=== PATIENT | male | born 1970 | race Caucasian/White ===

== ENCOUNTER → 2020-04-26 13:54 | Outpatient (BNVA) | payer OTHER, SELFPAY | PROVIDERS: PCP Family Medicine; Visit Provider Surgery | DX: Z48.815 Encounter for surgical aftercare following surgery on the digestive system (principal); Z93.3 Colostomy status | CPT/HCPCS: 99212 ==

== ENCOUNTER 2020-07-05 07:44 | Outpatient (REF) | payer OTHER, SELFPAY ==
--- NOTE | 2020-07-05 07:47 | FL_ITS ---
EXAMINATION: XR BARIUM ENEMA CLINICAL INFORMATION: Colostomy status COMPARISON: Previous CT of the abdomen and pelvis most recent October 2019 TECHNIQUE: Limited single contrast barium enema was performed through the rectum FINDINGS: There is a small outpouching of contrast in the distal left colon or proximal sigmoid colon. This appears to have a haustral folds and may represent the surgical anastomosis/possible end-to-side anastomosis. This is in the area of previous abscess and small contained leak cannot be excluded with certainty. There is diverticulosis of the colon. No evidence of diverticulitis is seen. There is evidence of a loop colostomy of the proximal transverse colon. The cecum and right colon are not optimally visualized as contrast preferentially fills the colostomy bag. FLUOROSCOPY TIME: 0.9 minutes DOSE AREA PRODUCT: 76 poon per centimeter squared. Total dose 1 6 4 mg. 24 images. FL/FL barium enema IMPRESSION: Outpouching of the contrast the right distal left colon/proximal sigmoid colon which appears to have haustral folds and may represent a surgical end to side anastomosis. This is in the area of previous abscess and small contained perforation cannot be excluded with certainty. Diverticulosis of the colon. Transverse loop colostomy of the proximal transverse colon.
--- NOTE | 2020-07-05 08:26 | XR_ITS ---
EXAMINATION: XR LUMBOSACRAL SPINE CLINICAL INFORMATION: Back pain. COMPARISON: CT abdomen/pelvis dated 11/04/2019. TECHNIQUE: Three views of the lumbosacral spine. FINDINGS: Normal vertebral body alignment. The lumbar lordosis is maintained. No acute fracture or subluxation. No loss of vertebral body height. Mild loss of intervertebral disc L5-S1 as well as tiny endplate osteophytes at L3-L4 through L5-S1. Bilateral facet arthropathy at L4-L5 and L5-S1. Findings are similar when compared to the prior examination. No abnormal soft tissue calcification. XR/XR lumbar spine 2-3V IMPRESSION: Minimal degenerative disc disease at L3-S1 with mild bilateral facet arthropathy at L4-S1, similar when compared to the CT dated 11/04/2019.
== END 2020-07-05 07:45 | disposition home or self-care (01) ==
LOC: HO.XRAY 07:44
PROVIDERS: PCP Family Medicine; Visit Provider Surgery
DX: M54.9 Dorsalgia, unspecified (principal); Z93.3 Colostomy status
CPT/HCPCS: 72100; 74270

== ENCOUNTER 2020-07-27 08:00 | Outpatient (RCR) | payer OTHER, SELFPAY ==
--- NOTE | 2020-06-08 07:25 | MHC.PT.EP ---
[facility] [place] [facility] [place] [facility] [place] Office [address] [place] [address] [phone] F: [phone] F: [phone] F: [phone] F: [phone] Physical Therapy Plan of Care Date of Evaluation: 06/01/20 Date of Surgery: Diagnosis: Dorsalgia Assessment: Pt is a R hand dominant 49 y/o male referred from PCP Dr. Jeff for treatment of Dorsalgia with initial date of referral 05/10/2020. Pt was seen for evaluation today on 06/01/2020. Pt verbalizes history of chronic back pain with R LE sciatica which is near constant in nature. 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 He states he was working up until last April in same type of physical job when ultimately he had to stop due to hx sx severity. Pt has had two abdominal surgeries related to diverticulitis in 2019, resulting in new placement of R LE ostomy quadrant. Pt stated is he awaiting to have medical clearance to have this procedure reversed. He reported complication of bladder injury during second abdominal surgery resulting in aguirre placement which he stated bladder is now at baseline function. He has severe anxiety and history of panic attacks, (currently seeing provider from [facility] once a week on Wednesdays and had medication adjusted by PCP). Pt's prognosis for physical therapy is fair due to chronicity of sx, severity of pain identified at evaluation, level of anxiety, and limited positional tolerance. He stated he has been sleeping in a recliner for many months and has never been able to lie prone/supine even before ostomy. He was noted to exhibit decreased tolerance for sitting in a chair and was unable to stand for greater than 10 minutes. He verbalized presence of shooting pain radiating down central spine L4-L5 region with very limited movement. Pt stated he has not had any imaging but also verbalized hx of ongoing memory impairment. He reports currently has a case reviewer from [employer] assigned to him as he is facing eviction from his apartment and has not yet been cleared for disability benefits. He is receiving SNAP benefits and has transportation provided to him from his insurance. During assessment, pt was unable to lie prone due to his anxiety and level of pain. In sitting his R great toe was unable to extend and his strength in this area appeared diminished at 3+/5. He was unable to tolerate complete assessment in supine and stated he cannot lie on his back at all. His gait is very antalgic; he demonstrates uneven step length with increased guarding of UE and step to pattern with foot flat contact, reduction of swing phase and decreased knee flexion B. Due to pt reporting R>L LE giving out due to ambulation, pt may benefit from use of a RW to prevent falls at home. He has reported history of near fall when his R leg has given out on several occasions. He was trialed in the clinic with use of RW and he verbalized improvement in confidence with ambulation as well as reduction in the overall severity of his central LBP. He was educated to refrain from heavy grasping of the walker and educated how to use it when turning to maximize safety. Pt may benefit from receiving a written prescription for RW to aide in insurance coverage for this item. Pt was told that therapist will address this inquiry with his PCP/referring provider. If in agreement, please write a prescription for a RW and therapist can aide patient in obtaining for home use. Pt will be seen in therapy 1x/week due to severity of pt's anxiety, chronicity of sx, and external factors such as transportation. Frequency and Duration: The patient will be seen 1x week x 4 weeks Short Term Goals: 1. Pt will demonstrate neutral sitting posture with symmetrical weight-bearing. 2. Pt will demonstrate functional squat with neutral core stab. 3. Pt will demonstrate lumbar flexion improvement by 25%. 4. Pt will demonstrate good body mechanics during functional squat assessment. Water Supervisor Goals: 1. Pt will demonstrate carryover of joint protection measures in regards to mechanics and ADLs. 2. Pt will obtain a RW to aide in gait stability. 3 Pt will demonstrate sitting tolerance for 15 minutes without flare of lumbar sx >4/10. 4. Pt will initiate a gentle community walking program 10 minutes a day. Treatment Plan: Modalities to reduce pain, spasms and effusion. Manual therapy to restore motion and function. Therapeutic exercise to improve strength and flexibility. Neuromuscular re-education for posture and balance. Therapeutic activities to return to functional activities of daily living. Electronically signed by: Loly Denise PT,DPT Please sign and return to therapist. Thank you for your referral.
== END 2020-08-05 08:37 | disposition other institution (70) ==
LOC: HO.PTWFD 08:00
PROVIDERS: Visit Provider Family Medicine
DX: M54.9 Dorsalgia, unspecified (principal)
CPT/HCPCS: 97014; 97110; 97112; 97116; 97162; 97530; 97535

== ENCOUNTER → 2020-08-18 15:06 | Outpatient (BNVA) | payer OTHER, SELFPAY | PROVIDERS: PCP Family Medicine; Visit Provider Surgery | DX: Z93.3 Colostomy status (principal) | CPT/HCPCS: 99212 ==

== ENCOUNTER → 2020-08-23 10:03 | Outpatient (BNVA) | payer OTHER, SELFPAY | PROVIDERS: PCP Family Medicine; Visit Provider Anesthesiology | DX: M51.36 Other intervertebral disc degeneration, lumbar region (principal); M47.816 Spondylosis without myelopathy or radiculopathy, lumbar region; G89.4 Chronic pain syndrome | CPT/HCPCS: 99202 ==

== ENCOUNTER 2020-08-24 18:41 | Outpatient (REF) | payer OTHER, SELFPAY ==
--- NOTE | ~2020-08-24 | MR_ITS ---
EXAMINATION: MR LUMBAR SPINE WITHOUT CONTRAST CLINICAL INFORMATION: Spondylosis without myelopathy or radiculopathy. COMPARISON: CT of the abdomen and pelvis August 29, 2019. TECHNIQUE: MRI of the lumbar spine was obtained using routine sequences without contrast. FINDINGS: The lumbar vertebral bodies maintain normal heights and alignment. The disc heights are preserved. No marrow edema is seen. The distal spinal cord appears normal. The conus medullaris terminates at the L2 level. There is fibrofatty thickening of the filum terminale measuring up to 2.5 mm. Incidentally noted is a 2.3 x 1.8 cm exophytic mass arising from the medial aspect of the upper pole of the right kidney. This lesion has increased in size compared with August 28, 2020 when it measured 1.2 cm. The remainder of the visualized retroperitoneal structures are within normal limits. SPINAL LEVELS: L1-L2: No posterior disc abnormality. No spinal canal or neural foraminal stenosis. L2-L3: No posterior disc abnormality. No spinal canal or neural foraminal stenosis. L3-L4: Disc bulging with minimal encroachment on the neural foramina. No spinal canal stenosis. L4-L5: Disc bulging with moderate facet arthropathy resulting in mild to moderate spinal canal stenosis with mass effect on the traversing left L5 nerve root in the subarticular zone. Mild right and mild to moderate left neural foraminal stenosis. L5-S1: Disc bulging with moderate facet arthropathy. No spinal canal or neural foraminal stenosis. MR/MR lumbar spine wo con IMPRESSION: Soft tissue mass arising from the medial aspect of the upper pole of the right kidney measuring up to 2.3 x 1.8 cm. Renal cell carcinoma is suspected. Consider definitive characterization with renal protocol MRI. Mild degenerative spondylotic changes. At L4-L5 there is mild to moderate spinal canal stenosis with mass effect on the traversing left L5 nerve root in the subarticular zone. No definite foraminal nerve root compression identified.
== END 2020-08-24 18:42 | disposition home or self-care (01) ==
LOC: HO.MRI 18:41
PROVIDERS: Visit Provider Anesthesiology
DX: M47.816 Spondylosis without myelopathy or radiculopathy, lumbar region (principal); M51.36 Other intervertebral disc degeneration, lumbar region
CPT/HCPCS: 72148

== ENCOUNTER → 2020-08-31 12:52 | Outpatient (BNVA) | payer OTHER, SELFPAY | PROVIDERS: PCP Family Medicine; Visit Provider Urology | DX: Z13.89 Encounter for screening for other disorder (principal) | CPT/HCPCS: 99202 ==

== ENCOUNTER → 2020-10-15 08:10 | Outpatient (BNVA) | payer OTHER, SELFPAY | PROVIDERS: PCP Family Medicine; Visit Provider Urology | DX: N28.89 Other specified disorders of kidney and ureter (principal) | CPT/HCPCS: 99212 ==

== ENCOUNTER 2020-10-29 08:12 | Outpatient (REF) | payer OTHER, SELFPAY ==
[2020-10-29 10:12] LABS: MANUAL DIFF FLAG NO
[2020-10-29 10:18] LABS: Basophils Absolute Auto 0.1 X10*3/uL (0.0-0.2); Basophils Percent Auto 0.6 % (0-2); Eosinophils Absolute Auto 0.3 X10*3/uL (0.0-0.4); Eosinophils Percent Auto 3.9 % (0-4); Hematocrit 51.2 % (42-52); Hemoglobin 17.2 g/dl (14.0-18.0); Imm Gran Abs Auto 0.06 X10*3/uL (0.00-0.03); Imm Gran Pct Auto 0.8 % (0.0-0.4); Lymphocytes Absolute Auto 1.8 X10*3/uL (1.2-4.9); Lymphocytes Percent Auto 22.7 % (20-40); Mean Corpuscular HGB Conc 33.6 g/dl (31.0-36.0); Mean Corpuscular Hemoglobin 31.7 pg (27.0-33.0); Mean Corpuscular Volume 94.3 fL (80-98); Mean Platelet Volume 9.7 fL (9.4-12.4); Monocytes Absolute Auto 0.5 X10*3/uL (0.1-1.2); Monocytes Percent Auto 6.5 % (2-11); Neutrophils Absolute Auto 5.2 X10*3/uL (2.0-8.3); Neutrophils Percent Auto 65.5 % (45-73); Platelet Count 235 X10*3/uL (160-400); Red Blood Count 5.43 X10*6/uL (4.60-5.80); Red Cell Distribution Width 13.7 % (11.0-16.0)
[2020-10-29 10:40] LABS: Alanine Aminotransferase 37 U/L (0-40); Alkaline Phosphatase 83 U/L (39-117); Anion Gap 11 (12-20); Aspartate Amino Transferase 19 U/L (5-37); Bilirubin Total 0.4 mg/dL (0.0-1.0); Blood Urea Nitrogen 13 mg/dL (9-16); Calcium 9.3 mg/dL (8.4-10.2); Carbon Dioxide 28 mmol/L (22-29); Chloride 106 mmol/L (96-108); Estimated Glomerular Filt Rate > 60; Glucose Random 107 mg/dL (60-115); Potassium 4.9 mmol/L (3.3-5.1); Rheumatoid Factor < 15.0 IU/mL (<15.0); Sodium 140 mmol/L (135-145); Total Protein 6.6 g/dL (6.5-8.0)
[2020-10-29 11:07] LABS: Erythrocyte Sedimentation Rate 3 MM/HR (0-15)
[2020-10-30 13:36] LABS: CRP High Sensitivity 5.3 mg/L
[2020-10-31 17:46] LABS: Cyclic Citrullinated Peptide <16 UNITS
== END 2020-10-29 08:13 | disposition home or self-care (01) ==
LOC: HO.LAB 08:12
PROVIDERS: Absent Provider Family Medicine; PCP Family Medicine; Referring Provider Urology; Visit Provider Nurse Practitioner Family
DX: M51.36 Other intervertebral disc degeneration, lumbar region (principal); M47.816 Spondylosis without myelopathy or radiculopathy, lumbar region; M54.12 Radiculopathy, cervical region; G89.4 Chronic pain syndrome; Z79.899 Other long term (current) drug therapy
CPT/HCPCS: 36415; 80053; 85025; 85652; 86141; 86200; 86431; 99212

== ENCOUNTER 2020-11-05 18:29 | Outpatient (REF) | payer OTHER, SELFPAY ==
--- NOTE | ~2020-11-05 | MR_ITS ---
MR CERVICAL SPINE WITHOUT IV CONTRAST CLINICAL INFORMATION: Cervical region radiculopathy. COMPARISON: None available. TECHNIQUE: MRI of the cervical spine was obtained using routine sequences without contrast. FINDINGS: Cervical alignment is normal. The vertebral body heights are maintained. The disc volumes are preserved. There is no bone marrow edema. There are no acute fractures. Craniocervical junction is unremarkable. Cervical arterial flow voids are maintained. No significant extraspinal soft tissue findings. Accounting for artifact there is no cord signal abnormality. Franko-cisterna magna. C2-C3: Posterior disc contour is normal. Uncovertebral joint spurring and facet arthropathy result in mild left-sided foraminal encroachment. C3-C4: Slight annular disc bulge. Uncovertebral joint hypertrophy and hypertrophic facet arthropathy result in moderate right and mild left foraminal stenosis. C4-C5: Slight annular disc bulge. Uncovertebral joint hypertrophy and hypertrophic facet arthropathy result in moderate left and mild to moderate right foraminal stenosis. C5-C6: Right paracentral disc protrusion mildly indents the ventral thecal sac. A right lateral disc protrusion that is in part disc osteophyte results in severe right foraminal stenosis with compression of the exiting right C6 nerve root. Mild left foraminal encroachment. C6-C7: Shallow right paracentral disc protrusion mildly narrows the central canal. Uncovertebral joint spurring and facet arthropathy result in moderate to severe bilateral foraminal stenosis. C7-T1: Disc contour is normal. No central canal stenosis and no foraminal stenosis. MR/MR cervical spine wo con IMPRESSION: - At C5-C6, a right lateral disc protrusion that is in part disc osteophyte results in severe right foraminal stenosis with compression of the exiting right C6 nerve root. Shallow right paracentral disc protrusion mildly narrows the central canal on the right side. - At C6-C7, multifactorial degenerative changes result in moderate to severe bilateral foraminal stenosis. - Spondylitic changes also result in moderate right C3-C4 as well as moderate left C5 foraminal stenosis.
== END 2020-11-05 18:30 | disposition home or self-care (01) ==
LOC: HO.MRI 18:29
PROVIDERS: PCP Family Medicine; Visit Provider Anesthesiology
DX: M54.12 Radiculopathy, cervical region (principal)
CPT/HCPCS: 72141

== ENCOUNTER 2020-12-10 09:47 | Outpatient (REF) | payer OTHER, SELFPAY ==
--- NOTE | ~2020-12-10 | XR_ITS ---
EXAMINATION: XR thoracic spine 2V, XR ankle LT 2V, XR hand RT min 3V, XR hand LT min 3V CLINICAL INFORMATION: Hand pain. Ankle pain. Back pain. COMPARISON: None. TECHNIQUE: Left hand 3 views. Right hand 3 views. Left ankle 4 views. AP and lateral thoracic spine with swimmer's view. FINDINGS: LEFT HAND: No bony abnormality is demonstrated. No fracture or malalignment. Joint spaces are well-maintained. No erosions. No soft tissue calcifications. RIGHT HAND: 3 views the right hand are also normal. LEFT ANKLE: Medial soft tissue swelling is evident. No fracture, malalignment or other bony abnormality is demonstrated. No joint effusion is evident. THORACIC SPINE: There is normal anatomic alignment. No acute bony abnormality. B tibial body heights are maintained. Disc spaces are maintained. Minimal osteophytosis is seen at several levels. The paravertebral soft tissues are unremarkable. XR/XR hand LT min 3V IMPRESSION: 1. Normal examination of the hands bilaterally. 2. Soft tissue swelling left ankle with no fracture demonstrated. 3. Minimal spondylosis in the thoracic spine. No acute abnormality.
--- NOTE | ~2020-12-10 | XR_ITS ---
EXAMINATION: XR thoracic spine 2V, XR ankle LT 2V, XR hand RT min 3V, XR hand LT min 3V CLINICAL INFORMATION: Hand pain. Ankle pain. Back pain. COMPARISON: None. TECHNIQUE: Left hand 3 views. Right hand 3 views. Left ankle 4 views. AP and lateral thoracic spine with swimmer's view. FINDINGS: LEFT HAND: No bony abnormality is demonstrated. No fracture or malalignment. Joint spaces are well-maintained. No erosions. No soft tissue calcifications. RIGHT HAND: 3 views the right hand are also normal. LEFT ANKLE: Medial soft tissue swelling is evident. No fracture, malalignment or other bony abnormality is demonstrated. No joint effusion is evident. THORACIC SPINE: There is normal anatomic alignment. No acute bony abnormality. B tibial body heights are maintained. Disc spaces are maintained. Minimal osteophytosis is seen at several levels. The paravertebral soft tissues are unremarkable. XR/XR thoracic spine 2V IMPRESSION: 1. Normal examination of the hands bilaterally. 2. Soft tissue swelling left ankle with no fracture demonstrated. 3. Minimal spondylosis in the thoracic spine. No acute abnormality.
--- NOTE | ~2020-12-10 | XR_ITS ---
EXAMINATION: XR thoracic spine 2V, XR ankle LT 2V, XR hand RT min 3V, XR hand LT min 3V CLINICAL INFORMATION: Hand pain. Ankle pain. Back pain. COMPARISON: None. TECHNIQUE: Left hand 3 views. Right hand 3 views. Left ankle 4 views. AP and lateral thoracic spine with swimmer's view. FINDINGS: LEFT HAND: No bony abnormality is demonstrated. No fracture or malalignment. Joint spaces are well-maintained. No erosions. No soft tissue calcifications. RIGHT HAND: 3 views the right hand are also normal. LEFT ANKLE: Medial soft tissue swelling is evident. No fracture, malalignment or other bony abnormality is demonstrated. No joint effusion is evident. THORACIC SPINE: There is normal anatomic alignment. No acute bony abnormality. B tibial body heights are maintained. Disc spaces are maintained. Minimal osteophytosis is seen at several levels. The paravertebral soft tissues are unremarkable. XR/XR ankle LT 2V IMPRESSION: 1. Normal examination of the hands bilaterally. 2. Soft tissue swelling left ankle with no fracture demonstrated. 3. Minimal spondylosis in the thoracic spine. No acute abnormality.
--- NOTE | ~2020-12-10 | XR_ITS ---
EXAMINATION: XR thoracic spine 2V, XR ankle LT 2V, XR hand RT min 3V, XR hand LT min 3V CLINICAL INFORMATION: Hand pain. Ankle pain. Back pain. COMPARISON: None. TECHNIQUE: Left hand 3 views. Right hand 3 views. Left ankle 4 views. AP and lateral thoracic spine with swimmer's view. FINDINGS: LEFT HAND: No bony abnormality is demonstrated. No fracture or malalignment. Joint spaces are well-maintained. No erosions. No soft tissue calcifications. RIGHT HAND: 3 views the right hand are also normal. LEFT ANKLE: Medial soft tissue swelling is evident. No fracture, malalignment or other bony abnormality is demonstrated. No joint effusion is evident. THORACIC SPINE: There is normal anatomic alignment. No acute bony abnormality. B tibial body heights are maintained. Disc spaces are maintained. Minimal osteophytosis is seen at several levels. The paravertebral soft tissues are unremarkable. XR/XR hand RT min 3V IMPRESSION: 1. Normal examination of the hands bilaterally. 2. Soft tissue swelling left ankle with no fracture demonstrated. 3. Minimal spondylosis in the thoracic spine. No acute abnormality.
[2020-12-10 11:27] LABS: MANUAL DIFF FLAG NO
[2020-12-10 11:39] LABS: Basophils Percent Auto 0.4 % (0-2); Eosinophils Absolute Auto 0.3 X10*3/uL (0.0-0.4); Eosinophils Percent Auto 2.9 % (0-4); Hemoglobin 18.3 g/dl (14.0-18.0); Imm Gran Abs Auto 0.04 X10*3/uL (0.00-0.03); Imm Gran Pct Auto 0.4 % (0.0-0.4); Lymphocytes Absolute Auto 2.2 X10*3/uL (1.2-4.9); Lymphocytes Percent Auto 24.9 % (20-40); Mean Corpuscular HGB Conc 34.5 g/dl (31.0-36.0); Mean Corpuscular Hemoglobin 31.8 pg (27.0-33.0); Mean Platelet Volume 10.1 fL (9.4-12.4); Monocytes Absolute Auto 0.6 X10*3/uL (0.1-1.2); Monocytes Percent Auto 6.4 % (2-11); Neutrophils Absolute Auto 5.8 X10*3/uL (2.0-8.3); Platelet Count 265 X10*3/uL (160-400); Red Blood Count 5.76 X10*6/uL (4.60-5.80); Red Cell Distribution Width 13.4 % (11.0-16.0)
[2020-12-10 12:06] LABS: Alanine Aminotransferase 45 U/L (0-40); Albumin Level 4.2 g/dL (3.5-5.0); Alkaline Phosphatase 78 U/L (39-117); Anion Gap 14 (12-20); Aspartate Amino Transferase 23 U/L (5-37); Bilirubin Total 0.5 mg/dL (0.0-1.0); Blood Urea Nitrogen 17 mg/dL (9-16); C Reactive Protein 0.63 mg/dL (< or = 0.50); Calcium 9.6 mg/dL (8.4-10.2); Carbon Dioxide 22 mmol/L (22-29); Chloride 108 mmol/L (96-108); Estimated Glomerular Filt Rate > 60; Glucose Random 119 mg/dL (60-115); Potassium 4.7 mmol/L (3.3-5.1); Sodium 139 mmol/L (135-145); Total Protein 6.8 g/dL (6.5-8.0)
[2020-12-10 12:17] LABS: Erythrocyte Sedimentation Rate 1 MM/HR (0-15)
[2020-12-10 12:29] LABS: Thyroid Stimulating Hormone 1.12 uIU/mL (0.32-4.0)
[2020-12-11 08:52] LABS: Lyme Abs Screen <0.90 index
[2020-12-14 20:37] LABS: Vitamin D 25-OH, D2 <4 ng/mL; Vitamin D 25-OH, D3 33 ng/mL; Vitamin D 25-OH, Total 33 ng/mL (30-100)
== END 2020-12-10 09:48 | disposition home or self-care (01) ==
LOC: HO.LAB 09:47
PROVIDERS: Absent Provider Physician Assistant; PCP Family Medicine; Visit Provider Student in an Organized Health Care Education/Training Program
DX: M54.6 Pain in thoracic spine (principal); M79.641 Pain in right hand; M79.642 Pain in left hand; M25.572 Pain in left ankle and joints of left foot
CPT/HCPCS: 36415; 72070; 73130; 73600; 80053; 82306; 82550; 84443; 85025; 85652; 86140; 86617; 86618; 99202

== ENCOUNTER 2020-12-17 07:59 | Outpatient (REF) | payer OTHER, SELFPAY ==
--- NOTE | ~2020-12-17 | CT_ITS ---
EXAMINATION: CT ABDOMEN WITHOUT AND WITH CONTRAST CLINICAL INFORMATION: Malignant neoplasm of unspecified kidney COMPARISON: Previous CT of the abdomen and pelvis October 2019 TECHNIQUE: Contiguous axial thin section helical images of the abdomen were performed before and after the administration of oral contrast and 85 mL of Omnipaque 350 intravenous contrast. The data set was reformatted in the coronal and sagittal planes and reviewed on an independent workstation. This CT examination was performed using dose optimization techniques as appropriate, variously including the following: *Automated exposure control *Adjustment of mA and/or kV according to patient size (this includes techniques or standardized protocols for targeted exams where dose is matched to indication/reason for exam; i.e. extremities or head) *Use of iterative reconstruction technique DLP: 702 mGy-cm FINDINGS: LUNG BASES: There is subsegmental atelectasis at the lung bases. LIVER, GALLBLADDER, AND BILIARY TREE: Unremarkable PANCREAS: Unremarkable SPLEEN: Unremarkable ADRENAL GLANDS AND KIDNEYS: There is a 1.6 x 2.3 cm lesion exophytic to the posterior upper pole of the right kidney. This is increased in size from 1.1 x 1.4 cm on October 2019 exam. Hounsfield units pre-IV contrast measure 26. Hounsfield units post-IV contrast measure 112 suggestive of enhancing solid lesion. There is a low-attenuation area seen in the posterior medial lower pole of the right kidney probably related to a collateral vessel. There is a small 3 mm low-attenuation lesion in the upper pole left kidney that may represent a cyst. The kidneys are otherwise unremarkable. BOWEL LOOPS: There is diverticulosis of the colon. There is right upper quadrant transverse colon loop colostomy. Small and large bowel is otherwise unremarkable. The appendix is unremarkable. Stomach is unremarkable. There are abdominal wall hernias containing fat. LYMPH NODES: Normal. VASCULAR: Unremarkable. BONES: Unremarkable CT/CT abdomen wo/w con IMPRESSION: Interval increase in size in the enhancing solid lesion exophytic to the posterior upper pole of the right kidney suggestive of a renal mass. Direct particularly disease of the colon and colostomy.
[2020-12-17] MEDS: iohexoL 350 MG/ML 100 ML INFUS..BTL IV (10:21)
== END 2020-12-17 08:00 | disposition home or self-care (01) ==
LOC: HO.CT 07:59
PROVIDERS: Visit Provider Urology
DX: C64.9 Malignant neoplasm of unspecified kidney, except renal pelvis (principal)
CPT/HCPCS: 74170; Q9967

== ENCOUNTER 2020-12-21 13:39 | Outpatient (REF) | payer OTHER, SELFPAY ==
[2020-12-21 14:03] LABS: Glucose Urine UA NEG (NEG); Leukocyte Esterase Urine 1+ (NEG); Nitrite Urine NEG (NEG); Urine Blood TRACE (NEG); Urine Ketones NEG (NEG); Urine Protein NEG (NEG-TRACE)
[2020-12-21 14:07] LABS: Appearance Urine CLEAR; Color Urine YELLOW
[2020-12-21 14:24] LABS: Bacteria Urine 1+ /LPF; RBC Urine 0 /HPF (0); Squamous Epithelial Cell Urine TRACE /LPF
[2020-12-21 14:25] LABS: Renal Epithelial Cells Urine TRACE /LPF
== END 2020-12-21 13:40 | disposition home or self-care (01) ==
LOC: HO.LNP 13:39
PROVIDERS: Visit Provider Family Medicine
DX: Z00.00 Encounter for general adult medical examination without abnormal findings (principal); R39.11 Hesitancy of micturition
CPT/HCPCS: 81001; 81003; 87086; 87088; 87186

== ENCOUNTER → 2021-01-04 07:46 | Outpatient (BNVA) | payer OTHER, SELFPAY | PROVIDERS: PCP Family Medicine; Visit Provider Student in an Organized Health Care Education/Training Program | DX: M79.641 Pain in right hand (principal); M79.642 Pain in left hand; R74.8 Abnormal levels of other serum enzymes | CPT/HCPCS: 99212 ==

== ENCOUNTER 2021-01-07 12:05 | Outpatient (REF) | payer OTHER, SELFPAY ==
[2021-01-07 13:42] LABS: C Reactive Protein 0.35 mg/dL (< or = 0.50); Lactate Dehydrogenase 176 U/L (118-273)
[2021-01-07 13:58] LABS: Erythrocyte Sedimentation Rate 2 MM/HR (0-15)
[2021-01-12 01:16] LABS: Aldolase 6.3 U/L (<=8.1)
== END 2021-01-07 12:06 | disposition home or self-care (01) ==
LOC: HO.LAB 12:05
PROVIDERS: PCP Family Medicine; Visit Provider Student in an Organized Health Care Education/Training Program
DX: R74.8 Abnormal levels of other serum enzymes (principal)
CPT/HCPCS: 36415; 82085; 82550; 83615; 85652; 86140

== ENCOUNTER → 2021-01-18 07:29 | Outpatient (BNVA) | payer OTHER, SELFPAY | PROVIDERS: PCP Family Medicine; Visit Provider Student in an Organized Health Care Education/Training Program | DX: M79.641 Pain in right hand (principal); M79.642 Pain in left hand; R74.8 Abnormal levels of other serum enzymes | CPT/HCPCS: 99212 ==

== ENCOUNTER → 2021-01-20 15:39 | Outpatient (BNVA) | payer OTHER, SELFPAY | PROVIDERS: PCP Family Medicine; Visit Provider Anesthesiology | DX: M51.36 Other intervertebral disc degeneration, lumbar region (principal); M47.816 Spondylosis without myelopathy or radiculopathy, lumbar region; M54.12 Radiculopathy, cervical region; G89.4 Chronic pain syndrome; F17.210 Nicotine dependence, cigarettes, uncomplicated | CPT/HCPCS: 99212 ==

== ENCOUNTER → 2021-02-08 14:04 | Outpatient (BNVA) | payer OTHER, SELFPAY | PROVIDERS: PCP Family Medicine; Visit Provider Urology | DX: C64.9 Malignant neoplasm of unspecified kidney, except renal pelvis (principal) | CPT/HCPCS: 99212 ==

== ENCOUNTER → 2021-02-09 15:38 | Outpatient (BNVA) | payer OTHER, SELFPAY | PROVIDERS: PCP Family Medicine; Visit Provider Nurse Practitioner Family | DX: M51.36 Other intervertebral disc degeneration, lumbar region (principal); M47.816 Spondylosis without myelopathy or radiculopathy, lumbar region; G89.4 Chronic pain syndrome; M54.12 Radiculopathy, cervical region | CPT/HCPCS: 99212 ==

== ENCOUNTER → 2021-02-23 13:28 | Outpatient (BNVA) | payer OTHER, SELFPAY | PROVIDERS: PCP Family Medicine; Visit Provider Nurse Practitioner Family | DX: M51.36 Other intervertebral disc degeneration, lumbar region (principal); M47.816 Spondylosis without myelopathy or radiculopathy, lumbar region; M54.12 Radiculopathy, cervical region; G89.4 Chronic pain syndrome | CPT/HCPCS: 99212 ==

== ENCOUNTER 2021-03-15 08:01 | Outpatient (REF) | payer OTHER, SELFPAY ==
--- NOTE | ~2021-03-15 | FL_ITS ---
EXAMINATION: XR FLUOROSCOPY WITH IMAGES CLINICAL INFORMATION: Radiculopathy. COMPARISON: None. TECHNIQUE: Fluoroscopy performed by Poppy Hernandez NP. Fluoroscopy time: 0.2 minutes DAP: 1 Gy-cm2 Images: 1 FINDINGS: Single image demonstrates needle placement and contrast injection over the spine at the C7-T1 level. FL/FL guidance in treatment room IMPRESSION: Fluoroscopic guidance for pain management procedure.
[2021-03-15 15:17] LABS: Hematocrit 51.6 % (42-52); Hemoglobin 18.3 g/dl (14.0-18.0); Mean Corpuscular HGB Conc 35.5 g/dl (31.0-36.0); Mean Corpuscular Hemoglobin 32.4 pg (27.0-33.0); Mean Corpuscular Volume 91.3 fL (80-98); Mean Platelet Volume 9.7 fL (9.4-12.4); Platelet Count 284 X10*3/uL (160-400); Red Blood Count 5.65 X10*6/uL (4.60-5.80); Red Cell Distribution Width 13.4 % (11.0-16.0)
[2021-03-15 15:27] LABS: Partial Thromboplastin Time 40.6 SEC (24.1-38.0)
[2021-03-15 15:40] LABS: Anion Gap 15 (12-20); Blood Urea Nitrogen 12 mg/dL (9-16); Carbon Dioxide 23 mmol/L (22-29); Chloride 106 mmol/L (96-108); Estimated Glomerular Filt Rate > 60; Potassium 4.5 mmol/L (3.3-5.1); Sodium 139 mmol/L (135-145)
== END 2021-03-15 08:02 | disposition home or self-care (01) ==
LOC: HO.RADIR 08:01
PROVIDERS: Absent Provider Urology; PCP Family Medicine; Visit Provider Anesthesiology
DX: M50.30 Other cervical disc degeneration, unspecified cervical region (principal); M54.12 Radiculopathy, cervical region; N28.89 Other specified disorders of kidney and ureter
CPT/HCPCS: 36415; 62321; 80051; 82565; 84520; 85027; 85730; J1100; Q9967

== ENCOUNTER 2021-03-22 10:37 | Day surgery (SDC) | payer OTHER, SELFPAY ==
--- NOTE | 2021-03-21 08:20 | P.CONAN_ITS ---
Documented by User: Mena Garcia NP 03/21/21 08:22 HPI - Anesthesia Eval Consult details Narrative: 50yo M for Right Kidney Cryo-Ablation,CT guided [place] BID PMFSH Active Problems Active Problems: All Active Problems (Updated 03/16/21 @ 08:13 by Ramakrishna Goddard MD) Degeneration, intervertebral disc, cervical (Acute) Elevated CPK (Acute) Hesitancy (Acute) Left ankle pain (Acute) Bilateral hand pain (Acute) Class 1 obesity with body mass index (BMI) of 34.0 to 34.9 in adult (Acute) Polyarthralgia (Acute) Renal mass (Acute) Edema (Acute) Anxiety and depression (Acute) Right renal mass (Acute) Cervical radiculopathy (Acute) Lumbar radiculopathy (Acute) Renal cell carcinoma (Acute) Chronic pain syndrome (Acute) Spondylosis of lumbar spine (Acute) Disc degeneration, lumbar (Acute) Unsteady gait (Acute) Housing or economic problem (Acute) Anxiety (Acute) Back pain (Acute) Colostomy in place (Acute) Preop cardiovascular exam (Acute) Past Medical History Medical History (Updated 03/16/21 @ 08:13 by Ramakrishna Goddard MD) Chronic pain syndrome Degeneration, intervertebral disc, cervical Disc degeneration, lumbar Diverticulitis Intra-abdominal abscess Renal cell carcinoma Spondylosis of lumbar spine Family History Family History Father No problems noted. Mother No problems noted. Brother No problems noted. Brother No problems noted. Sister Substance use disorder Sister No problems noted. Surgical History Surgical History History of surgery Social History Social History Alcohol intake: former Patient Tobacco Use Status: Current everyday Tobacco user Tobacco use type: Cigarette Cigarette Packs Per Day: 0.5 Cigarettes Per Day: 10.0 Years Smoked: 30 Smoked in Last 30 Days: Yes e-Cigarette/Vaping Use: Never Used Use of substances other than those prescribed or required for medical reasons: Yes Substance Use Frequency: Weekly Are you DNR?: No Advance Directives: No Advance Directives Information Provided: Yes Meds Allergies Allergy/AdvReac Type Severity Reaction Status Date / Time No Known Allergies Allergy Verified 03/15/21 15:51 [No Known Allergies*] Home Medications Medication Instructions Recorded Confirmed Last Taken Type buspirone 10 mg tablet 1 tab PO TID 03/22/21 03/22/21 03/22/21 History Exam Exam Date and Time: March 21, 2021 08 Pertinent Lab Results Pertinent Lab Results: Laboratory Tests 03/15/21 03/15/21 14:52 14:52 WBC 10.0 Hgb 18.3 H Hct 51.6 Plt Count 284 Sodium 139 Potassium 4.5 Chloride 106 Carbon Dioxide 23 BUN 12 Creatinine 1.12 Assessment and Plan Assessment Anesthesia Assessment: Chart Reviewed Documented by User: Vic Park MD 03/22/21 12:28 [facility] Past Medical History Medical History (Updated 03/16/21 @ 08:13 by Ramakrishna Goddard MD) Chronic pain syndrome Degeneration, intervertebral disc, cervical Disc degeneration, lumbar Diverticulitis Intra-abdominal abscess Renal cell carcinoma Spondylosis of lumbar spine Family History Family History Father No problems noted. Mother No problems noted. Brother No problems noted. Brother No problems noted. Sister Substance use disorder Sister No problems noted. Family history of problems with anesthesia: No Surgical History Surgical History History of surgery History of Problems with Anesthesia: No Social History Social History Alcohol intake: former Patient Tobacco Use Status: Current everyday Tobacco user Tobacco use type: Cigarette Cigarette Packs Per Day: 0.5 Cigarettes Per Day: 10.0 Years Smoked: 30 Smoked in Last 30 Days: Yes e-Cigarette/Vaping Use: Never Used Use of substances other than those prescribed or required for medical reasons: Yes Substance Use Frequency: Weekly Are you DNR?: No Advance Directives: No Advance Directives Information Provided: Yes Meds Allergies Allergy/AdvReac Type Severity Reaction Status Date / Time No Known Allergies Allergy Verified 03/15/21 15:51 [No Known Allergies*] Home Medications Medication Instructions Recorded Confirmed Last Taken Type buspirone 10 mg tablet 1 tab PO TID 03/22/21 03/22/21 03/22/21 History Exam Airway Mallampati Class: III TM Dist: >3cm Neck ROM: Full Loose/Missing/Broken Teeth: No Heart: rrr+[id number] Lungs: cta b/l Assessment and Plan Assessment Anesthesia Assessment: Anesthesia Plan Discussed Final Anesthetic Review Family History of Problems with Anesthesia: No History of Problems with Anesthesia: No NPO: Yes ASA Class: III Final Preanesthetic Review: No Changes in Pt Med Stat, Meds/Allgs Chart Reviewed, Consent Obtained/Reviewed and Anes Risks/Benef Reviewed Patient Risk: Intermediate Procedure Risk: Intermediate Assessment/Block/Sedation in SS: Assess/Block/Sedation-SS Anesthetic Plan Anesthetic Plan: MAC: and Agree w/ Assess. and Plan Disposition: Standard PACU
[2021-03-22] VITALS (8 sets, daily range): BP systolic 112–141; BP diastolic 81–92; PULSE 72–105; RESP 12–20; TEMP 36.3–36.4; O2SAT 94–98; BMI 31.8
--- NOTE | ~2021-03-22 | CT_ITS ---
EXAMINATION: CT-GUIDED RENAL BIOPSY AND CRYOABLATION CLINICAL INFORMATION: Right renal mass. COMPARISON: Previous CT scan most recent 12/17/2020. TECHNIQUE: Procedure and risks and benefits including bleeding, infection, injury to the kidney and adjacent structures and inadequate treatment of the tumor and recurrence were discussed with the patient and informed consent was obtained. Patient was positioned in the right decubitus position. Axial images through the right kidney were performed. The right back was prepped and draped in the usual sterile fashion. The skin and soft tissues were anesthetized with 1% lidocaine plain. Using CT guidance and a coaxial system, access to the right renal mass exophytic to the posterior upper to midpole of the right kidney was obtained. Two 20-gauge core biopsies were obtained. Subsequently, two 17-gauge 17 cm IceRod cryoablation probes were positioned in the mass. Two freeze-thaw cycles of 10 minutes freezing and 5 minutes thawing were performed. Imaging was performed at the conclusion of the 2 freeze cycles. Both probes were removed. Postprocedure images were performed. Anesthesia was provided by the anesthesia department. Patient received 40 mL of Omnipaque 350 intravenous contrast during the procedure. DLP 646 mGy-cm. FINDINGS: There is a 2 cm mass exophytic to the posterior medial upper and midpole of the right kidney that was targeted for biopsy and cryoablation. Images demonstrate adequate probe placement in the lesion and adequate ice ball obscuring the lesion. Postprocedure images demonstrate no evidence of hemorrhage. CT/CT guided ablation renal IMPRESSION: CT-guided right renal mass biopsy and cryoablation.
[2021-03-22 11:15] LABS: MANUAL DIFF FLAG NO
[2021-03-22 11:16] LABS: Basophils Percent Auto 0.3 % (0-2); Eosinophils Absolute Auto 0.1 X10*3/uL (0.0-0.4); Eosinophils Percent Auto 1.9 % (0-4); Hematocrit 53.7 % (42-52); Hemoglobin 18.5 g/dl (14.0-18.0); Imm Gran Abs Auto 0.04 X10*3/uL (0.00-0.03); Imm Gran Pct Auto 0.6 % (0.0-0.4); Lymphocytes Absolute Auto 1.8 X10*3/uL (1.2-4.9); Lymphocytes Percent Auto 26.5 % (20-40); Mean Corpuscular HGB Conc 34.5 g/dl (31.0-36.0); Mean Corpuscular Hemoglobin 31.9 pg (27.0-33.0); Mean Corpuscular Volume 92.6 fL (80-98); Mean Platelet Volume 9.9 fL (9.4-12.4); Monocytes Absolute Auto 0.5 X10*3/uL (0.1-1.2); Monocytes Percent Auto 7.1 % (2-11); Neutrophils Absolute Auto 4.3 X10*3/uL (2.0-8.3); Neutrophils Percent Auto 63.6 % (45-73); Platelet Count 196 X10*3/uL (160-400); Red Cell Distribution Width 13.3 % (11.0-16.0); White Blood Count 6.7 X10*3/uL (4.8-10.8)
[2021-03-22 11:26] LABS: INTERNATIONAL NORM RATIO 1.1 (0.9-1.1); Prothrombin Time 12.5 SEC (9.9-13.0)
[2021-03-22 11:28] LABS: Partial Thromboplastin Time 43.6 SEC (24.1-38.0)
[2021-03-22] MEDS: Lactated Ringers 1,000 ML 100 ML IVCONT (12:19)
--- NOTE | 2021-03-22 14:51 | HO.RADPN ---
RADIOLOGY Narrative Narrative: Right renal mass core biopsy and cryoablation. 2 20g core biopsies obtained using coaxial system. Next 2 17g 17 cm cryoablation probes positioned in right renal mass. Two freeze thaw cycles totalling 30 min. No comlication.
[2021-03-22] MEDS: fentaNYL citrate/PF 100 MCG/2 ML VIAL 50 MCG IVPUSH ×2 (14:52→14:57)
[2021-03-22] MEDS: oxyCODONE HCl Immed Release 5 MG TABLET 10 MG PO (14:55)
[2021-03-22] MEDS: iohexoL 350 MG/ML 100 ML INFUS..BTL IV (15:24)
== END 2021-03-22 16:37 | disposition home or self-care (01) ==
PROVIDERS: PCP Family Medicine; Visit Provider Radiology Diagnostic Radiology
DX: C64.1 Malignant neoplasm of right kidney, except renal pelvis (principal)
CPT/HCPCS: 36415; 50200; 50593; 77012; 77013; 85025; 85610; 85730; 88305; C2618; J0690; J2250; J3010; Q9967

== ENCOUNTER → 2021-04-08 11:39 | Outpatient (BNVA) | payer OTHER, SELFPAY | PROVIDERS: PCP Family Medicine; Visit Provider Nurse Practitioner Family | DX: G89.4 Chronic pain syndrome (principal); M51.36 Other intervertebral disc degeneration, lumbar region; M47.816 Spondylosis without myelopathy or radiculopathy, lumbar region; M54.12 Radiculopathy, cervical region | CPT/HCPCS: 99212 ==

== ENCOUNTER → 2021-05-06 09:17 | Outpatient (BNVA) | payer OTHER, SELFPAY | PROVIDERS: PCP Family Medicine; Visit Provider Nurse Practitioner Family | DX: Z51.81 Encounter for therapeutic drug level monitoring (principal); M51.36 Other intervertebral disc degeneration, lumbar region; M47.816 Spondylosis without myelopathy or radiculopathy, lumbar region; M54.12 Radiculopathy, cervical region; G89.4 Chronic pain syndrome; S16.1XXD Strain of muscle, fascia and tendon at neck level, subsequent encounter | CPT/HCPCS: 20552; 99212 ==

== ENCOUNTER → 2021-06-03 13:23 | Outpatient (BNVA) | payer OTHER, SELFPAY | PROVIDERS: PCP Family Medicine; Visit Provider Nurse Practitioner Family ==

== ENCOUNTER → 2021-06-03 13:43 | Outpatient (BNVA) | payer OTHER, SELFPAY | PROVIDERS: PCP Family Medicine; Visit Provider Nurse Practitioner Family | DX: Z51.81 Encounter for therapeutic drug level monitoring (principal); M51.36 Other intervertebral disc degeneration, lumbar region; M47.816 Spondylosis without myelopathy or radiculopathy, lumbar region; G89.4 Chronic pain syndrome; M54.12 Radiculopathy, cervical region; S16.1XXD Strain of muscle, fascia and tendon at neck level, subsequent encounter | CPT/HCPCS: 99212 ==

== ENCOUNTER 2021-06-07 05:59 | Outpatient (REF) | payer OTHER, SELFPAY ==
--- NOTE | ~2021-06-07 | FL_ITS ---
EXAMINATION: XR FLUOROSCOPY WITH IMAGES CLINICAL INFORMATION: Sacrococcygeal disorders. COMPARISON: None. TECHNIQUE: Fluoroscopy performed by Poppy Hernandez. Fluoroscopy time: 0.2 minutes DAP: 1.21 Gycm2 Images: 1 FINDINGS: There is a solitary image revealing needle positioned at the inferior right SI joint with contrast opacifying the adjacent soft tissues. Visualized bones are grossly unremarkable. FL/FL guidance in treatment room IMPRESSION: Fluoroscopy was provided to referring physician during pain management.
== END 2021-06-07 06:00 | disposition home or self-care (01) ==
LOC: HO.RADIR 05:59
PROVIDERS: Visit Provider Anesthesiology
DX: M53.3 Sacrococcygeal disorders, not elsewhere classified (principal)
CPT/HCPCS: 27096; Q9967

== ENCOUNTER → 2021-07-01 09:15 | Outpatient (BNVA) | payer OTHER, SELFPAY | PROVIDERS: PCP Family Medicine; Visit Provider Nurse Practitioner Family | DX: Z51.81 Encounter for therapeutic drug level monitoring (principal); M51.36 Other intervertebral disc degeneration, lumbar region; M47.816 Spondylosis without myelopathy or radiculopathy, lumbar region; M54.12 Radiculopathy, cervical region; G89.4 Chronic pain syndrome; S16.1XXD Strain of muscle, fascia and tendon at neck level, subsequent encounter | CPT/HCPCS: 99212 ==

== ENCOUNTER → 2021-07-05 15:01 | Outpatient (BNVA) | payer OTHER, SELFPAY | PROVIDERS: PCP Family Medicine; Visit Provider Urology ==

== ENCOUNTER 2021-07-22 10:14 | Outpatient (REF) | payer OTHER, SELFPAY ==
[2021-07-22 14:03] LABS: Blood Urea Nitrogen 8 mg/dL (9-16); Estimated Glomerular Filt Rate > 60
== END 2021-07-22 10:15 | disposition home or self-care (01) ==
LOC: HO.10HDL 10:14
PROVIDERS: Visit Provider Urology
DX: C64.9 Malignant neoplasm of unspecified kidney, except renal pelvis (principal)
CPT/HCPCS: 36415; 82565; 84520

== ENCOUNTER 2021-07-26 07:35 | Outpatient (REF) | payer OTHER, SELFPAY ==
--- NOTE | ~2021-07-26 | CT_ITS ---
EXAMINATION: CT ABDOMEN WITHOUT AND WITH CONTRAST CLINICAL INFORMATION: Right kidney cancer post cryoablation COMPARISON: Previous CT of the abdomen and pelvis most recent November 2020 TECHNIQUE: Contiguous axial thin section helical images of the abdomen were performed before and after the administration of oral contrast and 85 mL of Omnipaque 350 intravenous contrast. The data set was reformatted in the coronal and sagittal planes and reviewed on an independent workstation. This CT examination was performed using dose optimization techniques as appropriate, variously including the following: *Automated exposure control *Adjustment of mA and/or kV according to patient size (this includes techniques or standardized protocols for targeted exams where dose is matched to indication/reason for exam; i.e. extremities or head) *Use of iterative reconstruction technique DLP: 674 mGy-cm FINDINGS: LUNG BASES: There is subsegmental atelectasis at the lung bases. LIVER, GALLBLADDER, AND BILIARY TREE: Unremarkable PANCREAS: Unremarkable SPLEEN: Unremarkable ADRENAL GLANDS AND KIDNEYS: There is a 2.2 cm heterogeneous low-attenuation lesion exophytic to the posterior upper pole of the right kidney. This measures 2.2 cm in AP and transverse dimension. This does not appear appreciably decreased in size. This demonstrates decreased attenuation precontrast and decreased enhancement. Hounsfield units precontrast measure 24. Hounsfield units postcontrast measure 24 as well. No residual solid component is seen. There is a 5 mm low-attenuation lesion in the medial lower pole of the right kidney probably representing a cyst that is stable. The left kidney and adrenal glands are unremarkable. BOWEL LOOPS: There is a right upper quadrant transverse colon loop colostomy. There is mild diverticulosis of the colon. Small and large bowel is otherwise unremarkable. The visualized appendix is unremarkable. There are postoperative changes to the anterior abdominal wall. There is diastasis of the rectus muscles and small umbilical hernia containing fat. LYMPH NODES: Normal VASCULAR: Unremarkable BONES: Unremarkable CT/CT abdomen wo/w con IMPRESSION: Interval decrease in attenuation and enhancement of the lesion exophytic to the posterior upper pole of the right kidney compared to November 2020 exam. Fleischner guidelines were followed.
[2021-07-26] MEDS: iohexoL 350 MG/ML 100 ML INFUS..BTL 85 ML IV (08:24)
== END 2021-07-26 07:36 | disposition home or self-care (01) ==
LOC: HO.CT 07:35
PROVIDERS: Visit Provider Urology
DX: C64.9 Malignant neoplasm of unspecified kidney, except renal pelvis (principal)
CPT/HCPCS: 74170; Q9967

== ENCOUNTER 2021-08-09 06:00 | Outpatient (REF) | payer OTHER, SELFPAY ==
--- NOTE | ~2021-08-09 | FL_ITS ---
EXAMINATION: XR FLUOROSCOPY WITH IMAGES CLINICAL INFORMATION: M54.2 - Cervicalgia. Cervical epidural. COMPARISON: MR cervical spine 11/05/2020 TECHNIQUE: Fluoroscopy performed by Dr. Ramakrishna Goddard. Fluoroscopy time: 0.3 minutes DAP: 0.802 Gycm2 Images: 2 FINDINGS: There is interlaminar spinal needle at lower cervical spine. There is epidural contrast seen on the lateral view. No visible vascular communication. FL/FL guidance in treatment room IMPRESSION: Fluoroscopy for pain management procedure.
== END 2021-08-09 06:01 | disposition home or self-care (01) ==
LOC: HO.RADIR 06:00
PROVIDERS: Visit Provider Anesthesiology
DX: M54.2 Cervicalgia (principal); M51.36 Other intervertebral disc degeneration, lumbar region; M47.816 Spondylosis without myelopathy or radiculopathy, lumbar region; M54.12 Radiculopathy, cervical region; G89.4 Chronic pain syndrome; S16.1XXA Strain of muscle, fascia and tendon at neck level, initial encounter
CPT/HCPCS: 62321; J1100; J3300; Q9967

== ENCOUNTER 2021-08-23 05:54 | Outpatient (REF) | payer OTHER, SELFPAY ==
--- NOTE | ~2021-08-23 | FL_ITS ---
EXAMINATION: XR FLUOROSCOPY WITH IMAGES CLINICAL INFORMATION: M47.816 - Spondylosis without myelopathy or radiculopathy COMPARISON: CT abdomen 07/26/2021 TECHNIQUE: Fluoroscopy performed by Dr. Ramakrishna Goddard. Fluoroscopy time: 0.6 minutes DAP: 8.4 Gycm2 Images: 6 FINDINGS: There are spinal needles overlying the bilateral outer L3, L4, and L5 neural foramen. There is contrast seen in the respective nerve sheaths. Some early transforaminal epidural extension is suggested. No visible vascular communication. FL/FL guidance in treatment room IMPRESSION: Fluoroscopy for pain management procedures.
== END 2021-08-23 05:55 | disposition home or self-care (01) ==
LOC: HO.RADIR 05:54
PROVIDERS: Visit Provider Anesthesiology
DX: M47.816 Spondylosis without myelopathy or radiculopathy, lumbar region (principal); M51.36 Other intervertebral disc degeneration, lumbar region; G89.4 Chronic pain syndrome; M54.12 Radiculopathy, cervical region; S16.1XXA Strain of muscle, fascia and tendon at neck level, initial encounter
CPT/HCPCS: 64493; 64494; Q9967

== ENCOUNTER → 2021-08-30 08:39 | Outpatient (BNVA) | payer OTHER, SELFPAY | PROVIDERS: PCP Family Medicine; Visit Provider Nurse Practitioner Family | DX: M16.11 Unilateral primary osteoarthritis, right hip (principal); M47.816 Spondylosis without myelopathy or radiculopathy, lumbar region; M51.36 Other intervertebral disc degeneration, lumbar region; M54.12 Radiculopathy, cervical region; G89.4 Chronic pain syndrome; F17.210 Nicotine dependence, cigarettes, uncomplicated; Z79.899 Other long term (current) drug therapy | CPT/HCPCS: 99212 ==

== ENCOUNTER 2021-09-05 09:34 | Outpatient (REF) | payer OTHER, SELFPAY ==
[2021-09-05 12:18] LABS: Alanine Aminotransferase 33 U/L (0-40); Albumin Level 3.9 g/dL (3.5-5.0); Alkaline Phosphatase 92 U/L (39-117); Anion Gap 13 (12-20); Aspartate Amino Transferase 19 U/L (5-37); Bilirubin Total 0.2 mg/dL (0.0-1.0); Blood Urea Nitrogen 11 mg/dL (9-16); Calcium 8.9 mg/dL (8.4-10.2); Carbon Dioxide 24 mmol/L (22-29); Chloride 106 mmol/L (96-108); Estimated Glomerular Filt Rate > 60; Glucose Random 104 mg/dL (60-115); Potassium 4.4 mmol/L (3.3-5.1); Sodium 139 mmol/L (135-145); Total Protein 7.2 g/dL (6.5-8.0)
[2021-09-10 20:06] LABS: Testosterone, Free 92.1 pg/mL (35.0-155.0); Testosterone, Total 297 ng/dL (250-1100)
== END 2021-09-05 09:35 | disposition home or self-care (01) ==
LOC: HO.WFDLDS 09:34
PROVIDERS: Visit Provider Family Medicine
DX: N28.89 Other specified disorders of kidney and ureter (principal); F41.9 Anxiety disorder, unspecified; F32.9 Major depressive disorder, single episode, unspecified
CPT/HCPCS: 36415; 80053; 84402; 84403

== ENCOUNTER 2021-09-21 12:46 | Emergency (ER) | payer OTHER, SELFPAY ==
[2021-09-21 13:26] VITALS: BP 117/73; PULSE 78; RESP 17; TEMP 36.9; O2SAT 98; BMI 32.8
--- NOTE | 2021-09-21 15:28 | ED_ITS ---
HPI - General Adult General Chief complaint: General Medical Stated complaint: Facial swelling/ear pain Time Seen by Provider: 09/21/21 15:28 Source: patient Mode of arrival: ambulatory Limitations: no limitations History of Present Illness HPI narrative: Patient is a 51 year old male presenting to the emergency department today with right facial swelling. Patient states that he has a broken tooth in the bottom right part of his mouth and this morning he woke up with swelling around his left cheek. Patient denies any dizziness, lightheadedness, abdominal pain, nausea, vomiting, fever, chills, blurry vision, double vision, loss of vision, chest pain, difficulty breathing, shortness of breath, back pain, night sweats, pain with urination, increased urinary frequency, increased urinary urgency, b lood in his urine or stool, syncope or a near syncopal episode, recent trauma or falls, bowel incontinence, bladder incontinence, bowel retention, bladder retention, or any other complaints at this time. Onset (ago): hour(s) Location: face Radiation: non-radiation Severity: mild Severity scale (1-10): 3 Quality: dull Pain Consistency: constant Relieving factors: none Exacerbating factors: none Associated symptoms: denies other symptoms Treatments prior to arrival: none Related Data Home Medications Medication Instructions Recorded Confirmed buspirone 10 mg tablet 20 mg PO TID tab 08/30/21 09/05/21 Previous Rx's Medication Instructions Recorded miscellaneous medical supply #1 ea 06/21/20 walker #1 ea 06/21/20 hydroxyzine pamoate 50 mg capsule 50 mg PO TID PRN #90 cap 08/30/20 citalopram 40 mg tablet 40 mg PO DAILY 90 Days #90 tab 09/08/20 prazosin 5 mg capsule 5 mg PO BEDTIME 30 Days #30 cap 12/21/20 diclofenac sodium 1 % topical gel 2 g TOPICAL QID 30 Days #100 g 07/15/21 cyclobenzaprine 10 mg tablet 10 mg PO TID #90 tab 07/20/21 lidocaine 5 % topical patch 1 patch TOPICAL DAILY #30 patch 07/20/21 buprenorphine 15 mcg/hour weekly 1 patch TRANSDERMAL Q7D 28 Days #4 08/30/21 transdermal patch (Butrans) ea furosemide 20 mg tablet 20 mg PO BID #60 tab 09/05/21 penicillin V potassium 500 mg 500 mg PO QID 10 Days #40 tab 09/21/21 tablet Allergies Allergy/AdvReac Type Severity Reaction Status Date / Time No Known Allergies Allergy Verified 09/05/21 09:12 [No Known Allergies*] Review of Systems Constitutional: Constitutional: Reports no additional constitutional complaints, Denies chills, Denies fever(s) and Denies night sweats Eyes: Eyes: Reports no additional eye complaints, Denies blurry vision, Denies change in vision, Denies diplopia, Denies eye discharge, Denies loss of vision and Denies eye pain ENT: Denies dizziness Cardiovascular: Cardiovascular: Reports no additional cardiovascular complai nts, Denies chest pain, Denies lightheadedness, Denies Loss of Consciousness and Denies dyspnea Respiratory: Respiratory: Reports no additional respiratory complaints and Denies dyspnea Gastrointestinal: Gastrointestinal: Reports no additional gastrointestinal complaints, Denies abdominal pain, Denies melena, Denies hematochezia, Denies change in bowel habits and Denies change in stool character Genitourinary: Genitourinary: Reports no additional male genitourinary complaints, Denies hematuria, Denies oliguria, Denies difficulty urinating, Denies dysuria, Denies urinary frequency, Denies urinary hesitancy, Denies urinary incontinence and Denies urinary urgency Musculoskeletal: Musculoskeletal: Reports no additional musculoskeletal complaints, Denies numbness and Denies tingling Integumentary/Breasts: Comments: right sided facial swelling Neurologic: Denies dizziness, Denies loss of vision, Denies numbness and Denies tingling Psychiatric: Psychiatric: Reports no additional psychiatric complaints Endocrine: Endocrine: Reports no additional endocrine complaints Hematologic/Lymphatic: Hematologic/Lymphatic: Reports no additional hematologic/lymphatic complaints Allergic/Immunologic: Allergic/Immunologic: Reports no additional allergic/immunologic complaints [facility] Past Medical History Attestation statement: The following information was validated with the patient. Source: old records reviewed Medical History Chronic pain syndrome Degeneration, intervertebral disc, cervical Disc degeneration, lumbar Diverticulitis Intra-abdominal abscess Renal cell carcinoma Spondylosis of lumbar spine Surgical History History of surgery Family History Family History Father No problems noted. Mother No problems noted. Brother No problems noted. Brother No problems noted. Sister Substance use disorder Sister No problems noted. Social History Social History Housing: Apartment Alcohol intake: former Patient Tobacco Use Status: Current everyday Tobacco user Tobacco use type: Cigarette Cigarette Packs Per Day: 0.5 Cigarettes Per Day: 10.0 Years Smoked: 30 e-Cigarette/Vaping Use: Never Used Advance Directives: No Current occupational status: disabled Physical Exam ED Vital Signs: Vital Signs - 24 hr 09/21/21 13:26 Temperature 98.4 F Pulse Rate 78 Respiratory Rate 17 Blood Pressure 117/73 Pulse Oximetry 98 BMI result Body Mass Index 32.8 Const General: cooperative, no acute distress, alert and awake Nutritional Appearance: well nourished Orientation/consciousness: patient oriented x3 Limitations: no limitations HENMT Head: Yes normal to inspection and Yes atraumatic Ears: hearing grossly normal bilaterally and external ears normal General nose exam: Normal external nose present, no nasal discharge noted and no epistaxis Face and sinus: Yes normal facial exam, No abrasion and No laceration Mouth: Normal oral and palatal mucosa present, no drooling and no muffled voice Teeth image: 1. obviously broken tooth with significant swelling around the tooth Eyes General: appearance normal, both eyes and all related structures Periorbital: periorbital findings normal Eyelids: Yes eyelids normal Conjunctivae: conjunctivae normal Pupils: Equal, round and reactive pupils present EOM: EOMs intact bilaterally Neck Neck: Yes normal visual inspection, Yes full ROM and Yes no lymphadenopathy Chest Chest palpation & inspection: normal inspection of the chest Resp Effort & Inspection: normal respiratory effort and able to speak in complete sentences Auscultation: clear to auscultation bilaterally Cardio Rate: regular rate Rhythm: regular rhythm GI Inspection: Yes normal to inspection Neuro General: patient oriented x3 and moves all extremities Cranial nerves: Yes Equal, round and reactive pupils present Cognition (Neuro): normal cognition Motor exam (neuro): 5/5 motor strength present throughout Sensory Exam: Normal double simultaneous stimulation for sensation Coordination: [id number] test normal Extrem General: Yes normal to inspection, Yes full ROM and Yes capillary refill normal Psych Appearance: grossly normal Mental Status: mental status grossly normal Affect: normal affect Attitude: cooperative Thought process: Normal thought process present Thought content: Normal thought content present Insight: Good insight present (Psych) Medical Decision Making MDM Narrative Medical decision making narrative: Patient is a 51 year old male presenting to the emergency department today with right sided facial swelling. Patient's physical exam showed minimal swelling to the right side of his face and a broken tooth in the bottom right side of her mouth. I explained my physical exam findings to the patient. I answered all questions asked by the patient. I stressed the importance of the patient taking his medication as prescribed. I stressed the importance of the patient following up with his primary care provider and a dentist. I stressed the importance of t he patient returning to the emergency department immediately if his symptoms were to worsen or if he were to develop any dizziness, shortness of breath, difficulty breathing, chest pain, blurry vision, loss of vision, nausea, vomiting, abdominal pain, fever, chills, back pain, or any other complaints. Patient verbalized agreement and understanding with this treatment plan and discharge. Differential Diagnosis Differential Diagnosis: dental abscess, facial cellulitis Medical Records Medical records reviewed: Yes I reviewed the patient's medical records. Discharge Plan Discharge Clinical Impression: Abscess, dental Patient Disposition: Home, Self-Care Instructions: Dental Abscess (ED) Additional Instructions: Call or visit any of the clinics below to establish with a dentist: [facility] [address] [place] [address] [facility] [address] [facility] [place], [address] Art Heller [address] [place] [id number] [facility] [address] [place] [id number] [facility] [address] [place] [address] [place] [address] [place] [address] Follow up with your primary care provider. Return to the emergency department immediately if your symptoms worsen or if you develop any dizziness, shortness of breath, difficulty breathing, chest pain, blurry vision, loss of vision, nausea, vomiting, abdominal pain, fever, chills, back pain, or any other complaints. Prescriptions: New penicillin V potassium 500 mg tablet 500 mg PO QID 10 Days Qty: 40 0RF No Action hydroxyzine pamoate 50 mg capsule 50 mg PO TID PRN (Reason: for itch) Qty: 90 1RF citalopram 40 mg tablet 40 mg PO DAILY 90 Days Qty: 90 2RF diclofenac sodium 1 % gel 2 g topical QID 30 Days Qty: 100 2RF Rx Instructions: apply to single elbow, wrist or hand; for hand includes palm/fingers/back of hand cyclobenzaprine 10 mg tablet 10 mg PO TID Qty: 90 0RF lidocaine 5 % adhesive patch,medicated 1 patch topical DAILY Qty: 30 1RF buspirone 10 mg tablet 20 mg PO TID 0RF prazosin 5 mg capsule 5 mg PO BEDTIME 30 Days Qty: 30 1RF (DME) miscellaneous medical supply [facility] See Rx Instructions .ROUTE .MEDSUPPLY Qty: 1 0RF Rx Instructions: Shower bench/seat. As directed, duration: 999 days (DME) walker [facility] See Rx Instructions .ROUTE .MEDSUPPLY Qty: 1 0RF Rx Instructions: Rolling Walker. Daily. Duration:999days. Ht: 5'9 Wt 215. Disp#1 furosemide 20 mg tablet 20 mg PO BID Qty: 60 1RF Rx Instructions: take 1 tab daily, in the morning and the other at lunch if unable to take bot h in the morning buprenorphine [Butrans] 15 mcg/hour patch weekly 1 patch transdermal Q7D 28 Days Qty: 4 0RF Referrals: Pelon Jeff MD [Primary Care Provider] - 2 days Interventions: ED Discharge Assessment Last Done: 09/21/21 15:44 Discharge Date/Time: 09/21/21 15:46 Print Language: Czech
== END 2021-09-21 15:46 | disposition home or self-care (01) ==
PROVIDERS: Emergency Provider Emergency Medicine; PCP Family Medicine
DX: K04.7 Periapical abscess without sinus (principal); R22.0 Localized swelling, mass and lump, head; F17.200 Nicotine dependence, unspecified, uncomplicated
CPT/HCPCS: 99283

== ENCOUNTER → 2021-10-03 16:15 | Outpatient (BNVA) | payer OTHER, SELFPAY | PROVIDERS: PCP Family Medicine; Visit Provider Anesthesiology | DX: Z13.89 Encounter for screening for other disorder (principal) ==

== ENCOUNTER → 2021-10-05 08:23 | Outpatient (BNVA) | payer OTHER, SELFPAY | PROVIDERS: PCP Family Medicine; Visit Provider Nurse Practitioner Family | DX: Z51.81 Encounter for therapeutic drug level monitoring (principal); F11.20 Opioid dependence, uncomplicated; M51.36 Other intervertebral disc degeneration, lumbar region; M47.816 Spondylosis without myelopathy or radiculopathy, lumbar region; M54.12 Radiculopathy, cervical region; M16.11 Unilateral primary osteoarthritis, right hip; G89.4 Chronic pain syndrome | CPT/HCPCS: 99212 ==

== ENCOUNTER → 2021-10-06 10:02 | Outpatient (BNVA) | payer OTHER, SELFPAY | PROVIDERS: PCP Family Medicine; Visit Provider Urology | DX: C64.9 Malignant neoplasm of unspecified kidney, except renal pelvis (principal) | CPT/HCPCS: 99212 ==

== ENCOUNTER 2021-10-11 06:31 | Outpatient (REF) | payer OTHER, SELFPAY ==
--- NOTE | ~2021-10-11 | FL_ITS ---
EXAMINATION: XR FLUOROSCOPY WITH IMAGES CLINICAL INFORMATION: M47.816 - Spondylosis without myelopathy or radiculopathy COMPARISON: Fluoroscopic spot views 08/23/2021 TECHNIQUE: Fluoroscopy performed by Dr. Ramakrishna Goddard. Fluoroscopy time: 0.6 minutes DAP: 8.05 Gycm2 Images: 6 FINDINGS: There are spinal needles overlying the bilateral outer L3, L4, and L5 neural foramen. There is contrast seen in the respective nerve sheaths. There is associated transforaminal epidural extension of contrast as well. No visible vascular communication. FL/FL guidance in treatment room IMPRESSION: Fluoroscopy for pain management procedures.
== END 2021-10-11 06:32 | disposition home or self-care (01) ==
LOC: HO.RADIR 06:31
PROVIDERS: Visit Provider Anesthesiology
DX: M47.816 Spondylosis without myelopathy or radiculopathy, lumbar region (principal); M51.36 Other intervertebral disc degeneration, lumbar region; G89.4 Chronic pain syndrome; M54.12 Radiculopathy, cervical region; M16.11 Unilateral primary osteoarthritis, right hip
CPT/HCPCS: 64493; 64494; J2795; Q9967

== ENCOUNTER 2021-11-02 08:00 | Outpatient (REF) | payer OTHER, SELFPAY ==
--- NOTE | ~2021-11-02 | XR_ITS ---
EXAMINATION: XR HIP, RIGHT CLINICAL INFORMATION: Primary osteoarthritis. Pain. COMPARISON: None TECHNIQUE: Two views of the right hip. FINDINGS: There is loss of right hip joint space with smooth articular surface of the femoral head. No loose bodies or bony erosive changes seen. The soft tissues are normal. XR/XR hip RT min 2V IMPRESSION: Mild loss of right hip joint space likely early osteoarthritic changes. No loose bodies or acute fracture or dislocation.
== END 2021-11-02 08:01 | disposition home or self-care (01) ==
LOC: HO.XRAY 08:00
PROVIDERS: PCP Family Medicine; Visit Provider Nurse Practitioner Family
DX: M16.11 Unilateral primary osteoarthritis, right hip (principal); M51.36 Other intervertebral disc degeneration, lumbar region; M47.816 Spondylosis without myelopathy or radiculopathy, lumbar region; G89.4 Chronic pain syndrome; M54.12 Radiculopathy, cervical region; M62.838 Other muscle spasm
CPT/HCPCS: 73502; 99212

== ENCOUNTER 2021-12-13 11:33 | Day surgery (SDC) | payer OTHER, SELFPAY ==
--- NOTE | ~2021-12-13 | FL_ITS ---
EXAMINATION: XR FLUOROSCOPY WITH IMAGES CLINICAL INFORMATION: RFA lumbar. COMPARISON: 10/11/2021. TECHNIQUE: Fluoroscopy performed by Dr. Ramakrishna Goddard. Fluoroscopy time: 1 minutes DAP: 5.44 Gy-cm2 Images: 7 FINDINGS: Imaging demonstrates needle placement adjacent to the L4, L5, and S1 pedicles. Visualized bony structures appear unremarkable. FL/FL guidance in OR IMPRESSION: Fluoroscopy for pain management procedure.
--- NOTE | 2021-12-13 10:13 | P.OP_ITS ---
Operative Note Operative Note Date of Service: 12/13/21 Narrative: Informed consent was explained to the patient. All questions were explained and answered. The patient was taken inside the operating room where he was positioned prone on the operating table. [employer] monitors were applied. Patient was not sedated, he was able to answer the questions and respond to commands. Time-out was performed delineating correct site, side, the nature of the pro cedure, patient's allergy, preoperative antibiotic if needed. All operating room staff was participating in OR time-out procedure. The lower back was prepped with ChloraPrep and draped with sterile towels. C-arm was brought over the operating field and sq picture of L4-and L5 vertebra and S1 AREA were delineated on the screen. Point of interest were delineated as connection of superior articular process of L4 and L5 vertebra bilaterally with corresponding transverse processes as well as connection of the sacral alae bilaterally with superior articular process of S1 1st on the right and then on the left side. . The projection of the point of interest to the skin were injected with the small amount of local anesthetic lidocaine 2% 1-1.5 cc. After that 18 gauge 100 mm RFA canulas? were driven to the point of interest in oblique fashion. After needles gently contacted the bone the sensory test was performed patient reported pressure sensation on sensory test.? After that motor tests were performed and no motor response was detected in the patients feet lower legs or thighs. After that? at the point of interests the cannulas? were injected with small amount of bupivacaine 0.5% mixed with lidocaine 1%-1cc? and also mixed with very small amount of Kenalog. 90 seconds after the injection the energy application was performed at 89 degrees Centigrade for 90 second. After first energy application the canullas were rotated 180 degrees and energy application was repeated at the same setting. Upon completion of the injections? cannulas were removed and sterile bandaids were applied, The? patient was taken outside of the operating room to recovery room where he recovered uneventfully.
[2021-12-13 12:25] VITALS: BMI 30.4
[2021-12-13 12:32] VITALS: BP 107/71; PULSE 78; RESP 16; TEMP 36.1; O2SAT 94
--- NOTE | 2021-12-13 12:54 | MHC.SHP ---
Pre-Procedural Eval Section A Date of Service: 12/13/21 The patient is an INPATIENT: No Changes since office visit: Yes Patient answered all questions The History & Physical has been completed within 30 days and I have reviewed it.: No Section B Chief Complaint: Spondylosis without myelopathy or radiculopathy, Details of Present Illness: as above Relevant Family History (Specify if Yes): No Relevant Social History: Other (specify) Present Medications: None Medical History: No relevant PMH History of Previous Operations: No relevant previous surgery Allergies: Allergies Allergy/AdvReac Type Severity Reaction Status Date / Time No Known Allergies Allergy Verified 12/02/21 15:45 [No Known Allergies*] Review of Systems Sugical H&P ROS: Negative: Constitution, Cardiovascular, Respiratory, Neurological, Psychiatric, Hem-Onc, Allergic/Immunologic, Gastrointestinal, Genitourinary, Musculoskeletal, Integumentary, Endocrine and Eyes/Ears/Nose/Throat Exam Surgical H&P Exam: Normal: HEENT, Normal: Heart, Normal: Lungs, Normal: Extremities, Normal: Abdomen, Normal: Skin and Normal: Neurological Plan Diagnosis/Plan: Unchanged I have reviewed the history and physical and performed a pertinent physical examination on my patient. No changes have occurred unless specified.
--- NOTE | 2021-12-13 13:56 | P.BOP_ITS ---
Brief Operative Note Date of Service: 12/13/21 Pre-op diagnosis: spondylosis lumbar spine without myelo/ radiculopathy Post-op diagnosis: same Procedure: RFA L3-L4- DRL5 B/l CARLINE Implants: none Surgeon: Ramakrishna Goddard MD Anesthesia: local Was an [employer] used for this Procedure?: No Estimated blood loss (mL): 4 Pathology: none sent Condition: stable Disposition: PACU
== END 2021-12-13 14:30 | disposition home or self-care (01) ==
PROVIDERS: PCP Family Medicine; Visit Provider Anesthesiology
PROC: (CPT 64635; principal; 2021-12-13 13:00)
DX: M47.816 Spondylosis without myelopathy or radiculopathy, lumbar region (principal); M51.36 Other intervertebral disc degeneration, lumbar region; G89.4 Chronic pain syndrome; M16.11 Unilateral primary osteoarthritis, right hip; M62.838 Other muscle spasm; M54.12 Radiculopathy, cervical region; Z85.53 Personal history of malignant neoplasm of renal pelvis; Z87.19 Personal history of other diseases of the digestive system; F17.210 Nicotine dependence, cigarettes, uncomplicated
CPT/HCPCS: 64635; 64636 ×2; J3300

== ENCOUNTER → 2021-12-28 08:00 | Outpatient (BNVA) | payer OTHER, SELFPAY | PROVIDERS: PCP Family Medicine; Visit Provider Nurse Practitioner Family | DX: G89.4 Chronic pain syndrome (principal); M47.816 Spondylosis without myelopathy or radiculopathy, lumbar region; M54.12 Radiculopathy, cervical region; M51.36 Other intervertebral disc degeneration, lumbar region; M16.11 Unilateral primary osteoarthritis, right hip; M62.838 Other muscle spasm | CPT/HCPCS: 99212 ==

== ENCOUNTER 2022-01-05 11:21 | Outpatient (REF) | payer OTHER, SELFPAY ==
[2022-01-05 14:06] LABS: Appearance Urine CLEAR; Color Urine STRAW; Glucose Urine UA NEG (NEG); Leukocyte Esterase Urine NEG (NEG); Nitrite Urine NEG (NEG); Specific Gravity - Urine <= 1.005 (1.005-1.025); Urine Blood NEG (NEG); Urine Ketones NEG (NEG); Urine Protein NEG (NEG-TRACE)
[2022-01-05 14:27] LABS: Alanine Aminotransferase 45 U/L (0-40); Albumin Level 4.5 g/dL (3.5-5.0); Alkaline Phosphatase 125 U/L (39-117); Anion Gap 15 (12-20); Aspartate Amino Transferase 20 U/L (5-37); Bilirubin Total 0.7 mg/dL (0.0-1.0); Blood Urea Nitrogen 15 mg/dL (9-16); Calcium 9.1 mg/dL (8.4-10.2); Carbon Dioxide 25 mmol/L (22-29); Chloride 101 mmol/L (96-108); Estimated Glomerular Filt Rate > 60; Glucose Random 113 mg/dL (60-115); Sodium 137 mmol/L (135-145); Total Protein 7.2 g/dL (6.5-8.0)
[2022-01-05 14:48] LABS: Prostate Specific Antigen Scr 0.83 ng/mL (<0.05-4.0); TSH reflex Free T4 3.36 uIU/mL (0.32-4.0)
== END 2022-01-05 11:22 | disposition home or self-care (01) ==
LOC: HO.WFDLDS 11:21
PROVIDERS: Visit Provider Family Medicine
DX: Z00.00 Encounter for general adult medical examination without abnormal findings (principal); Z12.5 Encounter for screening for malignant neoplasm of prostate; M79.89 Other specified soft tissue disorders
CPT/HCPCS: 36415; 80053; 81003; 84153; 84443

== ENCOUNTER 2022-01-10 06:10 | Outpatient (REF) | payer OTHER, SELFPAY ==
--- NOTE | ~2022-01-10 | FL_ITS ---
EXAMINATION: XR FLUOROSCOPY WITH IMAGES CLINICAL INFORMATION: M54.12 - Radiculopathy, cervical region COMPARISON: None. TECHNIQUE: Fluoroscopy performed by Dr. Ezekiel Frey. Fluoroscopy time: 0.2 minutes. Cumulative Dose: 2.22 mGy. DAP: 0.443 Gy-cm2. Images: 2. FINDINGS: There is a spinal needle at lower cervical region interlaminar C6, tip just right of midline. FL/FL guidance in treatment room IMPRESSION: Fluoroscopy for pain management procedure.
== END 2022-01-10 06:11 | disposition home or self-care (01) ==
LOC: HO.RADIR 06:10
PROVIDERS: Visit Provider Anesthesiology
DX: M51.36 Other intervertebral disc degeneration, lumbar region (principal); M47.816 Spondylosis without myelopathy or radiculopathy, lumbar region; M54.12 Radiculopathy, cervical region; G89.4 Chronic pain syndrome; S16.1XXD Strain of muscle, fascia and tendon at neck level, subsequent encounter
CPT/HCPCS: 62321; J1100

== ENCOUNTER → 2022-01-23 12:45 | Outpatient (BNVA) | payer OTHER, SELFPAY | PROVIDERS: PCP Family Medicine; Visit Provider Anesthesiology | DX: M50.30 Other cervical disc degeneration, unspecified cervical region (principal); M51.36 Other intervertebral disc degeneration, lumbar region; M47.812 Spondylosis without myelopathy or radiculopathy, cervical region; M47.16 Other spondylosis with myelopathy, lumbar region; M54.12 Radiculopathy, cervical region | CPT/HCPCS: 99212 ==

== ENCOUNTER → 2022-03-01 08:11 | Outpatient (BNVA) | payer MEDICARE, MEDICAID, SELFPAY | PROVIDERS: PCP Family Medicine; Visit Provider Anesthesiology | DX: M50.30 Other cervical disc degeneration, unspecified cervical region (principal); M51.36 Other intervertebral disc degeneration, lumbar region; M47.16 Other spondylosis with myelopathy, lumbar region; M47.22 Other spondylosis with radiculopathy, cervical region; M16.11 Unilateral primary osteoarthritis, right hip | CPT/HCPCS: 99212 ==

== ENCOUNTER 2022-03-01 09:11 | Outpatient (REF) | payer MEDICARE, MEDICAID, SELFPAY ==
--- NOTE | 2022-03-01 09:59 | MHC.AU.MED ---
Medical Clearance for Hearing Instrumentation Date: 03/01/22 Patient Name: Mane Silva Date of : 1970 Primary Care Provider: Referring Provider: Pelon Jeff MD We have seen your patient on 03/01/22 and have determined that they are a candidate for amplification (See audiogram report). Specifically, they would benefit from: Hearing aid use in both ears There is a statute that addresses Medical Evaluation Requirements prior to fitting a patient with a hearing aid. According to [place] statute 265 CMR:6.03(1), (a) General. Except as provided in 265 CMR 6.03(1)(b), a director speech and hearing shall not sell a hearing aid unless the prospective user has presented to the director speech and hearing a written statement signed by a licensed physician that states that the patient's hearing loss has been medically evaluated and the patient may be considered a candidate for a hearing aid. The medical evaluation must have taken place within the preceding six months. Please note: Due to the [place] Statute referenced above, we cannot accept a signature other than that of a licensed physician. [employer] and PA signatures cannot be accepted. I am in agreement with the above recommendation. There is no medical contraindication for hearing instrumentation. Physician Signature Date Physician Name (Printed)
== END 2022-03-01 09:12 | disposition home or self-care (01) ==
LOC: HO.SH 09:11
PROVIDERS: Visit Provider Family Medicine
DX: Z01.118 Encounter for examination of ears and hearing with other abnormal findings (principal); H90.3 Sensorineural hearing loss, bilateral
CPT/HCPCS: 92557; 92567

== ENCOUNTER 2022-03-28 06:06 | Outpatient (REF) | payer MEDICARE, MEDICAID, SELFPAY ==
--- NOTE | ~2022-03-28 | FL_ITS ---
EXAMINATION: XR FLUOROSCOPY WITH IMAGES CLINICAL INFORMATION: M16.11 - Unilateral primary osteoarthritis, right hip COMPARISON: Radiographs right hip 11/02/2021. TECHNIQUE: Fluoroscopy performed by Dr. Ramakrishna Goddard. Fluoroscopy time: 0.1 minutes. Cumulative Dose: 3.45 mGy. DAP: 0.940 Gy-cm2. Images: 2. FINDINGS: There is a spinal needle with tip at the superior lateral aspect right hip. Contrast is demonstrated in the hip joint capsule. No visible vascular communication. FL/FL guidance in treatment room IMPRESSION: Fluoroscopy for pain management procedure.
== END 2022-03-28 06:07 | disposition home or self-care (01) ==
LOC: CF 06:06
PROVIDERS: Visit Provider Anesthesiology
DX: Z13.89 Encounter for screening for other disorder (principal)
CPT/HCPCS: J3300

== ENCOUNTER 2022-03-28 11:05 | Outpatient (REF) | payer MEDICARE, MEDICAID, SELFPAY ==
--- NOTE | ~2022-03-28 | US_ITS ---
EXAMINATION: US RETROPERITONEAL LIMITED (RENAL ONLY) CLINICAL INFORMATION: History of right RCC. COMPARISON: CT abdomen 07/26/2021. TECHNIQUE: Real-time imaging of the kidneys. FINDINGS: RIGHT KIDNEY: 11.1 x 5.11 x 5.5 cm (SAG x AP x TRV). The kidney is normal in size, contour, and echogenicity. Renal cortical thickness is normal. No calculi or focal parenchymal lesions. No hydronephrosis. Right renal mass is not well seen by ultrasound. This may be seen on cine loop 1-3 image 29/144 measuring 1.6 x 2 cm. LEFT KIDNEY: 11.9 x 5.5 x 4.6 cm (SAG x AP x TRV). The kidney is normal in size, contour, and echogenicity. Renal cortical thickness is normal. No calculi or focal parenchymal lesions. No hydronephrosis. US/US renal BI IMPRESSION: Normal renal ultrasound. Known right renal mass is not well seen. Follow-up CT or MR with and without contrast should be considered..
== END 2022-03-28 11:06 | disposition home or self-care (01) ==
LOC: HO.HMGCX 11:05
PROVIDERS: PCP Family Medicine; Visit Provider Urology
DX: C64.9 Malignant neoplasm of unspecified kidney, except renal pelvis (principal); M50.30 Other cervical disc degeneration, unspecified cervical region; M51.36 Other intervertebral disc degeneration, lumbar region; M47.812 Spondylosis without myelopathy or radiculopathy, cervical region; M47.16 Other spondylosis with myelopathy, lumbar region; M54.12 Radiculopathy, cervical region; M16.11 Unilateral primary osteoarthritis, right hip
CPT/HCPCS: 20610; 76775; J3300

== ENCOUNTER 2022-04-25 11:50 | Outpatient (REF) | payer MEDICARE, OTHER, MEDICAID, SELFPAY ==
[2022-04-25 14:32] LABS: Alanine Aminotransferase 45 U/L (0-40); Alkaline Phosphatase 98 U/L (39-117); Anion Gap 13 (12-20); Aspartate Amino Transferase 22 U/L (5-37); Bilirubin Total 0.4 mg/dL (0.0-1.0); Blood Urea Nitrogen 10 mg/dL (9-16); Calcium 8.9 mg/dL (8.4-10.2); Carbon Dioxide 28 mmol/L (22-29); Chloride 103 mmol/L (96-108); Estimated Glomerular Filt Rate > 60; Glucose Random 90 mg/dL (60-115); Sodium 140 mmol/L (135-145); Total Protein 6.3 g/dL (6.5-8.0)
== END 2022-04-25 11:51 | disposition home or self-care (01) ==
LOC: HO.WFDLDS 11:50
PROVIDERS: Visit Provider Family Medicine
DX: R74.01 Elevation of levels of liver transaminase levels (principal)
CPT/HCPCS: 36415; 80053

== ENCOUNTER → 2022-04-27 13:26 | Outpatient (BNVA) | payer MEDICARE, MEDICAID, SELFPAY | PROVIDERS: PCP Family Medicine; Visit Provider Urology | DX: R79.89 Other specified abnormal findings of blood chemistry (principal) | CPT/HCPCS: Q3014 ==

== ENCOUNTER → 2022-05-03 08:06 | Outpatient (BNVA) | payer MEDICARE, MEDICAID, SELFPAY | PROVIDERS: PCP Family Medicine; Visit Provider Anesthesiology | DX: M50.30 Other cervical disc degeneration, unspecified cervical region (principal); M51.36 Other intervertebral disc degeneration, lumbar region; M47.812 Spondylosis without myelopathy or radiculopathy, cervical region; M47.16 Other spondylosis with myelopathy, lumbar region; M54.12 Radiculopathy, cervical region | CPT/HCPCS: 99212 ==

== ENCOUNTER → 2022-07-05 08:11 | Outpatient (BNVA) | payer MEDICARE, MEDICAID, SELFPAY | PROVIDERS: PCP Family Medicine; Visit Provider Anesthesiology | DX: M50.30 Other cervical disc degeneration, unspecified cervical region (principal); M51.36 Other intervertebral disc degeneration, lumbar region; M47.812 Spondylosis without myelopathy or radiculopathy, cervical region; M47.16 Other spondylosis with myelopathy, lumbar region; M54.12 Radiculopathy, cervical region | CPT/HCPCS: 99212 ==

== ENCOUNTER 2022-07-06 12:09 | Day surgery (SDC) | payer MEDICARE, MEDICAID, SELFPAY ==
--- NOTE | ~2022-07-06 | FL_ITS ---
EXAMINATION: XR FLUOROSCOPY WITH IMAGES CLINICAL INFORMATION: Medial branch RFA COMPARISON: CT abdomen 07/26/2021 TECHNIQUE: Fluoroscopy Supervised By: Dr. Ramakrishna Goddard. Fluoroscopy Time: 1.3. Cumulative Dose: 26.7 mGy. DAP: 7.28 Gycm2. Images: 6. FINDINGS: There are spinal needles/electrodes overlying the bilateral outer L2, L3, L4, and L5 neural foramen. There is variable mild spurring lumbar vertebrae. FL/FL guidance in OR IMPRESSION: Fluoroscopy for pain management procedures.
--- NOTE | 2022-07-06 12:34 | MHC.SHP ---
Pre-Procedural Eval Section A Date of Service: 07/06/22 The patient is an INPATIENT: No Changes since office visit: Yes Patient answered all questions The History & Physical has been completed within 30 days and I have reviewed it.: No Section B Chief Complaint: Other spondylosis with myelopathy, lumbar region Details of Present Illness: as above Relevant Family History (Specify if Yes): No Relevant Social History: None Present Medications: None Medical History: No relevant PMH History of Previous Operations: No relevant previous surgery Allergies: Allergies Allergy/AdvReac Type Severity Reaction Status Date / Time No Known Allergies Allergy Verified 07/05/22 08:33 [No Known Allergies*] Review of Systems Sugical H&P ROS: Negative: Constitution, Cardiovascular, Respiratory, Neurological, Psychiatric, Hem-Onc, Allergic/Immunologic, Gastrointestinal, Genitourinary, Musculoskeletal, Integumentary, Endocrine and Eyes/Ears/Nose/Throat Exam Surgical H&P Exam: Normal: HEENT, Normal: Heart, Normal: Lungs, Normal: Extremities, Normal: Abdomen, Normal: Skin and Normal: Neurological Plan Diagnosis/Plan: Unchanged I have reviewed the history and physical and performed a pertinent physical examination on my patient. No changes have occurred unless specified. Time Spent With Patient Time: Total time managing care of this patient today ___5_ minutes.
[2022-07-06 12:35] VITALS: BP 120/80; PULSE 102; RESP 17; TEMP 35.9; O2SAT 95; BMI 31.0
--- NOTE | 2022-07-06 13:20 | HO.ANESPROP2 ---
[facility] Active Problems Active Problems: All Active Problems (Updated 05/03/22 @ 09:05 by Ramakrishna Goddard MD) Degeneration, intervertebral disc, cervical (Acute) Low testosterone in male (Acute) Osteoarthritis of right hip (Acute) Elevated ALT measurement (Acute) Radiculopathy, cervical (Acute) Spondylosis, lumbar, with myelopathy (Acute) Spondylosis, cervical (Acute) Disc degeneration, lumbar (Acute) Disc degeneration, lumbar (Acute) Swelling of lower extremity (Acute) Change in hearing (Acute) Vision changes (Acute) Adult general medical exam (Acute) Screening for prostate cancer (Acute) Screening for colon cancer (Acute) Muscle spasm (Acute) Osteoarthritis of right hip (Acute) Sacroiliac joint pain (Acute) Strain of cervical portion of left trapezius muscle (Acute) Neck pain (Acute) Degeneration, intervertebral disc, cervical (Acute) Elevated CPK (Acute) Hesitancy (Acute) Left ankle pain (Acute) Bilateral hand pain (Acute) Class 1 obesity with body mass index (BMI) of 34.0 to 34.9 in adult (Acute) Polyarthralgia (Acute) Edema (Acute) Anxiety and depression (Acute) Cervical radiculopathy (Acute) Lumbar radiculopathy (Acute) Renal cell carcinoma (Acute) Chronic pain syndrome (Acute) Spondylosis of lumbar spine (Acute) Disc degeneration, lumbar (Acute) Unsteady gait (Acute) Housing or economic problem (Acute) Anxiety (Acute) Back pain (Acute) Colostomy in place (Acute) Preop cardiovascular exam (Acute) Past Medical History Medical History Chronic pain syndrome Degeneration, intervertebral disc, cervical Disc degeneration, lumbar Diverticulitis Intra-abdominal abscess Renal cell carcinoma Spondylosis of lumbar spine Functional capacity: independent ambulation Family History Family History Father No problems noted. Mother No problems noted. Brother No problems noted. Brother No problems noted. Sister Substance use disorder Sister No problems noted. Family history of problems with anesthesia: No Surgical History Surgical History History of surgery History of Problems with Anesthesia: No Social History Social History Housing: Apartment Alcohol intake: former Patient Tobacco Use Status: Current everyday Tobacco user Tobacco use type: Cigarette Cigarette Packs Per Day: 0.5 Cigarettes Per Day: 10.0 Years Smoked: 30 e-Cigarette/Vaping Use: Never Used Second Hand Smoke Exposure: No Use of substances other than those prescribed or required for medical reasons: Yes Substance Use Frequency: Daily Advance Directives: No Advance Directives Information Provided: Yes service: No Current occupational status: disabled Current occupational exposures/hazards: No Cognitive needs: No Hearing needs: No Vision needs: Yes Meds Allergies Allergy/AdvReac Type Severity Reaction Status Date / Time No Known Allergies Allergy Verified 07/05/22 08:33 [No Known Allergies*] Home Medications Medication Instructions Recorded Confirmed Last Taken Type buspirone 30 mg tablet 30 mg PO BID 10/06/21 04/27/22 12/13/21 History gabapentin 600 mg tablet 600 mg PO TID 10/06/21 04/27/22 Unknown History Exam Exam Date and Time: July 06, 2022 1320 Height,Weight and Vital Signs: Height 5 ft 9 in Weight 95.254 kg Last Vital Signs Temp 96.7 F L 07/06/22 12:35 Pulse 102 H 07/06/22 12:35 Resp 17 07/06/22 12:35 BP 120/80 07/06/22 12:35 Pulse Ox 95 07/06/22 12:35 O2 Del Method 07/06/22 12:35 Assessment and Plan Final Anesthetic Review Family History of Problems with Anesthesia: No History of Problems with Anesthesia: No
--- NOTE | 2022-07-06 13:36 | PM.OP ---
Brief Operative Note Date of Service: 07/06/22 Pre-op diagnosis: spondylosis lumbar spine Post-op diagnosis: same Procedure: RFA L2- L3-L4- DRL5 bilateral. Surgeon: Ramakrishna Goddard MD Was an Professional Poker Player used for this Procedure?: No Estimated blood loss (mL): 1 Condition: stable Disposition: PACU
--- NOTE | 2022-07-06 13:37 | W.PM.OPN ---
Operative Note Operative Note Date of Service: 07/06/22 Narrative: RFA F1-A9-Q7-L4-DRL5 bilateral (repeat procedure #2, first procedure 5 and a half months ago) Informed consent was explained to the patient. All questions were explained and answered. The patient was taken inside the operating room where he was positioned prone on the operating table. [employer] monitors were applied. Patient was not sedated, he was able to answer the questions and respond to commands. Time-out was performed delineating correct site, side, the nature of the procedure, patient's allergy, preoperative antibiotic if needed. All operating room staff was participating in OR time-out procedure. The lower back was prepped with ChloraPrep and draped with sterile towels. C-arm was brought over the operating field and sq picture of L3, L4, L5 vertebra and S1 AREA were delineated on the screen. Point of interest were delineated as connection of superior articular process of L3, L4, L5 vertebra bilaterally with corresponding transverse processes as well as connection of the sacral alae bilaterally with superior articular process of S1 1st on the right and then on the left side. The projection of the point of interest to the skin were injected with the small amount of local anesthetic lidocaine 2% 1-1.5 cc. After that 18 gauge 100 mm RFA canulas? were driven to the point of interest in oblique fashion. After needles gently contacted the bone the sensory test was performed, patient reported pressure sensation on sensory test.? After that motor tests were performed and no motor response was detected in the patients feet lower legs or thighs. After that? at the point of interests the cannulas? were injected with small amount of ropivacaine 0.5% mixed with lidocaine 1%-1cc? and also mixed with very small amount of Kenalog. 90 seconds after the injection the energy application was performed at 89 degrees Centigrade for 90 second. After first energy application the canullas were rotated 180 degrees and energy application was repeated at the same setting. on the left side at about 80 second during second energy application after the canullas rotation the patient started to experience discomfor going down the Left lower extremity. Energy application stopped. 80 seconds after the canullas 180 degree rotation was decided to be significant for the procedure. Upon completion of the energy applications canullas were removed and sterile bandaids were applied, The? patient was taken outside of the operating room to recovery room where he recovered uneventfully.
[2022-07-06 14:51] VITALS: BP 109/75; PULSE 85; RESP 85; TEMP 36.7; O2SAT 96
== END 2022-07-06 15:01 | disposition home or self-care (01) ==
PROVIDERS: PCP Family Medicine; Visit Provider Anesthesiology
PROC: (CPT 64635; principal; 2022-07-06 13:30)
DX: M47.16 Other spondylosis with myelopathy, lumbar region (principal); M51.36 Other intervertebral disc degeneration, lumbar region; G89.4 Chronic pain syndrome; M47.812 Spondylosis without myelopathy or radiculopathy, cervical region; M50.30 Other cervical disc degeneration, unspecified cervical region; M54.12 Radiculopathy, cervical region; F17.210 Nicotine dependence, cigarettes, uncomplicated
CPT/HCPCS: 64635; 64636; J2250; J2795; J3301

== ENCOUNTER → 2022-08-01 08:10 | Outpatient (BNVA) | payer MEDICARE, MEDICAID, SELFPAY | PROVIDERS: PCP Family Medicine; Visit Provider Anesthesiology | DX: Z79.891 Long term (current) use of opiate analgesic (principal) | CPT/HCPCS: 99211 ==

== ENCOUNTER → 2022-08-09 11:48 | Outpatient (BNVA) | payer MEDICARE, MEDICAID, SELFPAY | PROVIDERS: PCP Family Medicine; Visit Provider Anesthesiology | DX: M50.30 Other cervical disc degeneration, unspecified cervical region (principal); M51.36 Other intervertebral disc degeneration, lumbar region; M47.812 Spondylosis without myelopathy or radiculopathy, cervical region; M47.16 Other spondylosis with myelopathy, lumbar region; M54.12 Radiculopathy, cervical region | CPT/HCPCS: Q3014 ==

== ENCOUNTER 2022-08-24 10:03 | Outpatient (REF) | payer MEDICARE, MEDICAID, SELFPAY ==
[2022-08-24 13:29] LABS: Blood Urea Nitrogen 12 mg/dL (9-16); Estimated Glomerular Filt Rate > 60
== END 2022-08-24 10:04 | disposition home or self-care (01) ==
LOC: HO.LAB 10:03
PROVIDERS: PCP Family Medicine; Visit Provider Surgery
DX: E66.01 Morbid (severe) obesity due to excess calories (principal); Z85.528 Personal history of other malignant neoplasm of kidney; Z93.3 Colostomy status; Z79.899 Other long term (current) drug therapy
CPT/HCPCS: 36415; 82565; 84520; 99212

== ENCOUNTER 2022-09-12 07:39 | Outpatient (REF) | payer MEDICARE, MEDICAID, SELFPAY ==
--- NOTE | ~2022-09-12 | CT_ITS ---
EXAMINATION: CT ABDOMEN AND PELVIS WITHOUT AND WITH CONTRAST CLINICAL INFORMATION: Z85.528 - Personal history of other malignant neoplasm of kidney. Right clear cell renal carcinoma status post CT-guided ablation 03/22/2021. COMPARISON: Renal ultrasound 03/28/2022, CT abdomen without and with contrast 07/26/2021 and 12/17/2020. CT-guided ablation 03/22/2021. TECHNIQUE: Noncontrast CT of the abdomen is performed followed by CT the abdomen and pelvis after the IV administration of 85 mL of Omnipaque 300 intravenous contrast. Sagittal and coronal reformatted images were obtained on the technologist's workstation. No oral contrast. This CT examination was performed using dose optimization techniques as appropriate, variously including the following: *Automated exposure control *Adjustment of mA and/or kV according to patient size (this includes techniques or standardized protocols for targeted exams where dose is matched to indication/reason for exam; i.e. extremities or head) *Use of iterative reconstruction technique DLP: 941 mGy-cm FINDINGS: LUNG BASES: The visualized lung bases are unremarkable. LIVER, GALLBLADDER, AND BILIARY TREE: Liver is normal in size and smooth in contour and homogeneous in attenuation. No focal hepatic parenchymal lesion or intrahepatic ductal dilatation. The gallbladder is unremarkable with no evidence of radiopaque gallstones, gallbladder wall thickening, or obvious pericholecystic inflammatory changes. PANCREAS: Unremarkable SPLEEN: Unremarkable ADRENAL GLANDS: Unremarkable KIDNEYS AND URETERS: The right kidney has a treated lesion posterior medial upper pole slightly decreased in size and without appreciable enhancement on CT. Precontrast attenuation 24 HU, postcontrast attenuation 24 HU. Again, there is a fatty cleft within the lesion likely at site of prior cryoablation. The lesion measurements off the sagittal images are previously 2.3 cm AP and 1.7 cm vertical, compared with current measurements 1.7 AP and 1.3 cm vertical. Again, there is a punctate cortical cyst medial right lower pole under 5 mm. The remainder of the right kidney is unremarkable. There is no hydronephrosis or calculi or perinephric stranding. No hydroureter. The left kidney shows no hydronephrosis, hydroureter, calculi, or perinephric stranding. Again, there is a punctate cyst anterior interpolar region under 5 mm similar to prior studies. BLADDER: Unremarkable GASTROINTESTINAL TRACT: No bowel obstruction or focal inflammatory changes in bowel or mesentery. Normal appendix. Double barrel colostomy right upper quadrant again seen. There are anastomosis clips in region of distal descending/proximal sigmoid colon. No ascites or fluid collection. ABDOMINAL WALL: Diastases rectus with small fat-containing periumbilical hernia. Right upper quadrant colostomy. LYMPH NODES: No lymphadenopathy. VASCULAR: Unremarkable PELVIC VISCERA: Prostatic calcifications. Seminal vesicles symmetric. OSSEOUS STRUCTURES: Unremarkable CT/CT abdomen pelvis wo/w IV con IMPRESSION: -Treated lesion posterior medial upper pole right kidney slightly decreased in size and without visible enhancement. No lymphadenopathy. -No hydronephrosis, calculi, or perinephric stranding. -Postsurgical changes colon. No obstruction or inflammatory changes. No ascites.
[2022-09-12] MEDS: iohexoL 350 MG/ML 100 ML INFUS..BTL IV (08:12)
== END 2022-09-12 07:40 | disposition home or self-care (01) ==
LOC: HO.CT 07:39
PROVIDERS: Visit Provider Surgery
DX: Z85.528 Personal history of other malignant neoplasm of kidney (principal)
CPT/HCPCS: 74178; Q9967

== ENCOUNTER 2022-09-13 11:31 | Outpatient (REF) | payer MEDICARE, MEDICAID, SELFPAY ==
--- NOTE | ~2022-09-13 | US_ITS ---
EXAMINATION: US RETROPERITONEAL LIMITED (RENAL ONLY) CLINICAL INFORMATION: Malignant neoplasm of unspecified kidney, except renal pelvis. COMPARISON: CT abdomen and pelvis 09/12/2022. Ultrasound retroperitoneal limited (renal only) 03/28/2022. TECHNIQUE: Real-time imaging of the kidneys. FINDINGS: RIGHT KIDNEY: 12.4 x 5.3 x 4.8 cm (SAG x AP x TRV). The kidney is normal in size, contour, and echogenicity. Renal cortical thickness is normal. Simple appearing 2 cm upper pole cyst. No definitive renal calculi or hydronephrosis. LEFT KIDNEY: 12.3 x 6.0 x 4.3 cm (SAG x AP x TRV). The kidney is normal in size, contour, and echogenicity. Renal cortical thickness is normal. 3 mm nonobstructing upper pole calculus. No hydronephrosis. US/US renal BI IMPRESSION: 1. No hydronephrosis of either kidney. 2. 3 mm nonobstructing left renal calculus. 3. 2 cm right renal cyst for which no follow-up imaging is usually warranted.
[2022-09-15 00:48] LABS: Follicle Stimulating Hormone 21.7 mIU/mL (1.6-8.0); Lutenizing Hormone 12.4 mIU/mL (1.5-9.3)
[2022-09-15 12:19] LABS: Sex Hormone Binding Globulin 40 nmol/L (10-50)
[2022-09-21 10:04] LABS: Testosterone, Free 61.7 pg/mL (35.0-155.0); Testosterone, Total 450 ng/dL (250-1100)
== END 2022-09-13 11:32 | disposition home or self-care (01) ==
LOC: HO.US 11:31
PROVIDERS: Absent Provider Urology; PCP Family Medicine; Visit Provider Urology
DX: C64.9 Malignant neoplasm of unspecified kidney, except renal pelvis (principal); R79.89 Other specified abnormal findings of blood chemistry
CPT/HCPCS: 36415; 76775; 83001; 83002; 84270; 84402; 84403

== ENCOUNTER → 2022-09-21 09:15 | Outpatient (BNVA) | payer MEDICARE, MEDICAID, SELFPAY | PROVIDERS: PCP Family Medicine; Visit Provider Surgery | DX: Z93.3 Colostomy status (principal) | CPT/HCPCS: 99212 ==

== ENCOUNTER → 2022-09-26 08:26 | Outpatient (BNVA) | payer MEDICARE, MEDICAID, SELFPAY | PROVIDERS: PCP Family Medicine; Visit Provider Nurse Practitioner Family | DX: Z51.81 Encounter for therapeutic drug level monitoring (principal); M50.30 Other cervical disc degeneration, unspecified cervical region; M51.36 Other intervertebral disc degeneration, lumbar region; M53.3 Sacrococcygeal disorders, not elsewhere classified; M47.816 Spondylosis without myelopathy or radiculopathy, lumbar region; M47.812 Spondylosis without myelopathy or radiculopathy, cervical region; M54.12 Radiculopathy, cervical region; R20.0 Anesthesia of skin; R20.2 Paresthesia of skin | CPT/HCPCS: 99212 ==

== ENCOUNTER → 2022-10-31 14:41 | Outpatient (BNVA) | payer MEDICARE, MEDICAID, SELFPAY | PROVIDERS: PCP Family Medicine; Visit Provider Urology | DX: C64.1 Malignant neoplasm of right kidney, except renal pelvis (principal); R79.89 Other specified abnormal findings of blood chemistry; F17.210 Nicotine dependence, cigarettes, uncomplicated | CPT/HCPCS: Q3014 ==

== ENCOUNTER → 2022-11-21 09:42 | Outpatient (BNVA) | payer MEDICARE, MEDICAID, SELFPAY | PROVIDERS: PCP Family Medicine; Visit Provider Nurse Practitioner Family | DX: Z79.891 Long term (current) use of opiate analgesic (principal) | CPT/HCPCS: 99211 ==

== ENCOUNTER → 2022-11-30 11:05 | Outpatient (BNVA) | payer MEDICARE, MEDICAID, SELFPAY | PROVIDERS: PCP Family Medicine; Visit Provider Anesthesiology | DX: M50.30 Other cervical disc degeneration, unspecified cervical region (principal); M51.36 Other intervertebral disc degeneration, lumbar region; M53.3 Sacrococcygeal disorders, not elsewhere classified; M47.816 Spondylosis without myelopathy or radiculopathy, lumbar region; M47.812 Spondylosis without myelopathy or radiculopathy, cervical region; M54.12 Radiculopathy, cervical region; R20.0 Anesthesia of skin; R20.2 Paresthesia of skin | CPT/HCPCS: Q3014 ==

== ENCOUNTER → 2022-12-11 08:48 | Outpatient (BNVA) | payer MEDICARE, MEDICAID, SELFPAY | PROVIDERS: PCP Family Medicine; Visit Provider Surgery | DX: Z93.3 Colostomy status (principal) | CPT/HCPCS: 99212 ==

== ENCOUNTER 2023-01-15 09:46 | Outpatient (AMB) | payer MEDICARE, MEDICAID, SELFPAY ==
--- NOTE | 2023-01-15 09:48 | MHC.OFFVIS ---
Intake Vital Signs 01/15/23 09:55 Height 5 ft 9 in Weight 221 lb 4 oz BMI 32.7 BP 138/79 Blood Pressure Location Rt brachial Position Sitting Pulse 94 Pulse Source Pulse Oximeter Pulse Oximetry (%) 96 Oxygen Delivery Method Room Air Intake Visit Reasons: Med count/random UDS Intake Note: Mane comes in today for a film count to belbuca, patient should have 48 films and presents with 53 films which he last took today 01/15/23 at 7am. Pain today 11/01. Patient will also have a random UDS done, aware that he needs to go to the lab on the first floor of this building today 01/15/23 before 12pm. Receiving Specialist Required: No Accompanied by: Self / Same As Patient Allergies No Known Allergies [No Known Allergies*] Allergy (Verified 01/15/23 09:49) HPI HPI Comments History of Present Illness Details Patient is a 52 years old male presents today for a Belbuca film count. He was previously seen in this office by Dr. Goddard for medical and interventional pain management for multiple pain generators. Patient is supposed to have 48 films, in his possession has 53 films. This demonstrates a responsible attitude in regards to the medication regimen. Patient reports better pain relief with Belbuca than Butrans without any side effects. He reports mild analgesia with Belbuca 300 mcg film BID for most days and at times has moderate analgesia. Patient requests to trial increase in his dose for Belbuca to allow him better functioning and be less symptomatic while he awaits for lumbar RFA. He reports he will be undergoing colonoscopy with potential colostomy reversal later this fall. Patient denies any fever, chills, chest pain, dizziness, shortness of breaths, bladder or bowel incontinence or saddle anesthesia. PRIOR Dr. Goddard 11/30/22: Patient is a 52 years old male who is on the phone today for medication discussion. He reports that transcutaneous buprenorphine patch does not stay on on his skin. He tried medical tape from the pharmacy but that did not help. He does not feel the medication gets into his system because the patches all these wet and frequently falling off. He requests me to go back on Belbuca which was prescribed to him in the past. I performed assessment and found no side effects of opioid medications on current examination. I will switch him to Belbuca, see as below. In the past he received radiofrequency ablation with moderate to good results. He wanted to repeat radiofrequency ablation however he is currently waiting for surgery with Dr. Riggs is colostomy reversal on 12/11/[address] Cooney. He decides to perform RFA after he is done and over with his general surgery procedure. I explained to him that the best medication to treat his pain postoperatively would be hydromorphone or fentanyl. I will be able to prescribe hydromorphone small doses for about a week of the time after his surgery. Alternatively I allowed him to accept description from Dr. Cooney. He is concerned for his cervical pain getting progressively worse. He reports he has numbness and tingling in his right 5th finger. Right upper extremity weakness with hand grasps. Cervical range of motions are limited especially with right lateral rotation, bending and extension. Pain extends from his neck in to his shoulder and down to his right lower arm. Previous cervical MRI in 2020 was noted for multilevel degenerative changes and significant for a right lateral disc protrusion at C5-C6 that is in part disc osteophyte results in severe right foraminal stenosis with compression of the exiting right C6 nerve root. Patient reports he has pending evaluation in [place] for his worsening neck pain with radiculopathy. Patient denies any fever, chills, chest pain, dizziness, shortness of breaths, bladder or bowel incontinence or saddle anesthesia. PRIOR 08/09/22 Dr. Goddard: Mane is on the phone today to discuss the results of the bilateral L2, L3-L4 does ramus L5 radiofrequency ablation which was performed on 07/06/2022. This is repeat injection. Original RFA was performed about 8 months ago and then the patient started to feel more pain in his back by the time I saw him in the office he reported very severe pain 8/10 in his lower back. At that time I offered him neuromodulation if RFA would not be working. I had [facility] in mind to try to come for his pain. However the RFA which was performed in June of 2022 gave him excellent results. He reports excellent pain relief. He reports better mobility better social interactions better activities of daily living. If RFA will be resulted in good pain relieve I do not think the neuromodulation would be necessary for this patient. He is currently in our office on buprenorphine program. He will be seeing next time a nurse for film count and refill of the medication. [facility] Medical History Chronic pain syndrome Degeneration, intervertebral disc, cervical Disc degeneration, lumbar Diverticulitis History of kidney cancer Intra-abdominal abscess Renal cell carcinoma Spondylosis of lumbar spine Surgical History History of surgery Family History Father No problems noted. Mother No problems noted. Brother No problems noted. Brother No problems noted. Sister Substance use disorder Sister No problems noted. Social History Housing: Apartment Alcohol intake: former Patient Tobacco Use Status: Current everyday Tobacco user Tobacco use type: Cigarette Cigarette Packs Per Day: 0.5 Cigarettes Per Day: 10.0 Years Smoked: 30 e-Cigarette/Vaping Use: Never Used Second Hand Smoke Exposure: No service: No Current occupational status: disabled Current occupational exposures/hazards: No Cognitive needs: No Hearing needs: No Vision needs: Yes Review of Systems Const All systems reviewed & are unremarkable except as noted in HPI and below ENT Reports Normal hearing present Neuro Reports Normal hearing present, Denies Abnormal speech present and Denies confusion Psych Denies confusion Physical Exam Vital Signs: Last Vital Signs Pulse 94 01/15/23 09:55 BP 138/79 01/15/23 09:55 Pulse Ox 96 01/15/23 09:55 Oxygen Delivery Method Room Air 01/15/23 09:55 BMI result Body Mass Index 32.7 Const General: cooperative, healthy appearing, no acute distress and alert; No confusion Nutritional Appearance: obese Orientation/consciousness: patient oriented x3 and No confusion HEENT Head: Yes normocephalic and Yes atraumatic Ears: hearing grossly normal bilaterally Eyes General: appearance normal, both eyes and all related structures Eyelids: Yes eyelids normal Pupils: Equal, round and reactive pupils present EOM: EOMs intact bilaterally Neck Neck: Yes normal visual inspection, Yes no lymphadenopathy, Yes no meningeal signs, Yes supple, No anterior neck swelling and Yes no JVD Resp Effort & Inspection: normal respiratory effort, able to speak in complete sentences and no audible wheezes Cardio Jugular venous distension: no JVD GI Other: Right side stoma Palpation (GI): Soft to palpation, nontender and no guarding Back/Spine/Pelvis Cervical Spine: cervical muscular tenderness, pain with cervical ROM, No Cervical spine tenderness and step off deformity Neuro General: patient oriented x3, no meningeal signs and No confusion Cranial nerves: Yes Equal, round and reactive pupils present and Yes Normal hearing present Speech: No Abnormal speech present Gait exam (Neuro): Antalgic gait present Psych Appearance: grossly normal Mental Status: mental status grossly normal Speech and movement: Normal speech and movement present Affect: normal affect Attitude: cooperative Thought process: Normal thought process present Thought content: Normal thought content present Insight: Good insight present (Psych) Judgement: Good judgement present (Psych) Assessment & Plan Assessment & Plan (1) Degeneration, intervertebral disc, cervical: Code(s): M50.30 - Other cervical disc degeneration, unspecified cervical region (2) Sacroiliac joint pain: Code(s): M53.3 - Sacrococcygeal disorders, not elsewhere classified (3) Disc degeneration, lumbar: Code(s): M51.36 - Other intervertebral disc degeneration, lumbar region (4) Spondylosis of lumbar spine: Code(s): M47.816 - Spondylosis without myelopathy or radiculopathy, lumbar region (5) Spondylosis, cervical: Code(s): M47.812 - Spondylosis without myelopathy or radiculopathy, cervical region (6) Cervical radiculopathy: Code(s): M54.12 - Radiculopathy, cervical region (7) Osteoarthritis of right hip: Code(s): M16.11 - Unilateral primary osteoarthritis, right hip Plan Patient has shown accountability for his medication regimen and the film count was accurate. There is no evidence of misuse, abuse or diversion at this time. [employer] reviewed. He is tolerating Belbuca well without any side effects. Will increase the dose to Belbuca 450 mcg BID with advanced date of 02/08/23. Patient advised to have regular dental check ups while taking Belbuca and take extra steps to help lessen the risk of serious dental problems. All questions were answered and the patient is in agreement with the plan. Will follow up in 8 weeks for a film count/UDS review or sooner if needed. Medications: Changed From buprenorphine HCl (Belbuca) Do not fill till 12/07/2022 300 mcg buccal Q12H 30 days PRN 60 ea 1RF pain (scale score 4-6) M16.11 - Unilateral primary osteoarthritis, right hip, M47.812 - Spondylosis without myelopathy or radiculopathy, cervical region, M50.30 - Other cervical disc degeneration, unspecified cervical region, M51.36 - Other intervertebral disc degeneration, lumbar region, M53.3 - Sacrococcygeal disorders, not elsewhere classified To buprenorphine HCl Partial Fill upon patient request. 450 mcg buccal Q12H 60 ea 1RF pain 30 days M16.11 - Unilateral primary osteoarthritis, right hip, M47.812 - Spondylosis without myelopathy or radiculopathy, cervical region, M50.30 - Other cervical disc degeneration, unspecified cervical region, M51.36 - Other intervertebral disc degeneration, lumbar region, M53.3 - Sacrococcygeal disorders, not elsewhere classified Coding Level of Care Code Est Pt Level 4 (87491) Diagnoses Degeneration, intervertebral disc, cervical M50.30 Sacroiliac joint pain M53.3 Disc degeneration, lumbar M51.36 Spondylosis of lumbar spine M47.816 Spondylosis, cervical M47.812 Cervical radiculopathy M54.12 Osteoarthritis of right hip M16.11
[2023-01-15 09:55] VITALS: BP 138/79; PULSE 94; O2SAT 96; BMI 32.7
== END 2023-01-15 10:05 | disposition home or self-care (01) ==
PROVIDERS: PCP Family Medicine; Visit Provider Nurse Practitioner Family
DX: M50.30 Other cervical disc degeneration, unspecified cervical region (principal); M53.3 Sacrococcygeal disorders, not elsewhere classified; M51.36 Other intervertebral disc degeneration, lumbar region; M47.816 Spondylosis without myelopathy or radiculopathy, lumbar region; M47.812 Spondylosis without myelopathy or radiculopathy, cervical region; M54.12 Radiculopathy, cervical region; M16.11 Unilateral primary osteoarthritis, right hip
CPT/HCPCS: 99214

== ENCOUNTER → 2023-01-15 09:46 | Outpatient (BNVA) | payer MEDICARE, MEDICAID, SELFPAY | PROVIDERS: PCP Family Medicine; Visit Provider Nurse Practitioner Family | DX: Z51.81 Encounter for therapeutic drug level monitoring (principal); F11.20 Opioid dependence, uncomplicated; M50.30 Other cervical disc degeneration, unspecified cervical region; M53.3 Sacrococcygeal disorders, not elsewhere classified; M51.36 Other intervertebral disc degeneration, lumbar region; M47.816 Spondylosis without myelopathy or radiculopathy, lumbar region; M47.812 Spondylosis without myelopathy or radiculopathy, cervical region; M54.12 Radiculopathy, cervical region; M16.11 Unilateral primary osteoarthritis, right hip | CPT/HCPCS: 99212 ==

== ENCOUNTER 2023-03-08 08:18 | Outpatient (AMB) | payer MEDICARE, MEDICAID, SELFPAY ==
[2023-03-08 08:26] VITALS: BP 116/78; PULSE 124; BMI 29.4
--- NOTE | 2023-03-08 08:26 | A.OFFVIS_ITS ---
Intake Vital Signs 03/08/23 08:26 Height 5 ft 9 in Weight 199 lb BMI 29.4 BP 116/78 Blood Pressure Location Rt brachial Position Sitting Pulse 124 H Intake Visit Reasons: Colostomy in place, 3 month follow up Intake Note: This patient presents for a three month follow-up assessment for colostomy check. Patient c/o; reports no concerns at this time. Emissions Repair Technician Required: No Accompanied by: Self / Same As Patient Allergies No Known Allergies [No Known Allergies*] Allergy (Verified 03/12/23 10:22) Medication List - Last Reconciled 03/08/23 by Renny Cooney MD buprenorphine HCl 450 mcg buccal Q12H 30 days buspirone 30 mg PO BID citalopram 40 mg PO DAILY 90 days cyclobenzaprine 10 mg PO TID diclofenac sodium 1% (Arthritis Pain (diclofenac)) 4 grams topical QID 30 days furosemide 20 mg PO BID hydroxyzine pamoate 50 mg PO TID PRN lidocaine 5% 1 patch topical DAILY 30 days miscellaneous medical supply Shower bench/seat. As directed, duration: 999 days prazosin 5 mg PO BEDTIME 30 days walker Rolling Walker. Daily. Duration:999days. Ht: 5'9 Wt 215. Disp#[address], 3 month follow up HPI Details He is here for follow-up for his transverse loop colostomy. He had undergone transverse loop colostomy in December 2019 because of acute diverticulitis with severe acute inflammatory changes and adhesions in the sigmoid. He eventually underwent sigmoid resection in February, with the transverse colostomy left in place because of the difficulty of the procedure He has had multiple health issues and has been undergoing treatment for renal cancer. The colostomy has been in place since that time. He denies any complaints with this. He also has morbid obesity and has been trying to lose weight. He says that his been exercising gym and doing a lot of walking and is now down to 199 lb. He says he feels well overall. He says that his renal cancer is in remission. [facility] Medical History History of kidney cancer Degeneration, intervertebral disc, cervical Renal cell carcinoma Chronic pain syndrome Spondylosis of lumbar spine Disc degeneration, lumbar Intra-abdominal abscess Diverticulitis Surgical History History of surgery Family History Father No problems noted. Mother No problems noted. Brother No problems noted. Brother No problems noted. Sister Substance use disorder Sister No problems noted. Social History Housing: Apartment Alcohol intake: former Patient Tobacco Use Status: Current everyday Tobacco user Tobacco use type: Cigarette Cigarette Packs Per Day: 0.5 Cigarettes Per Day: 10.0 Years Smoked: 30 e-Cigarette/Vaping Use: Never Used Second Hand Smoke Exposure: No service: No Current occupational status: disabled Current occupational exposures/hazards: No Cognitive needs: No Hearing needs: No Vision needs: Yes Review of Systems Const Denies chills and Denies fever(s) Card Denies chest pain GI Details: Stoma with good function Reports as per HPI and Denies abdominal pain Denies difficulty urinating Physical Exam Vital Signs: Last Vital Signs Pulse 124 H 03/08/23 08:26 BP 116/78 03/08/23 08:26 BMI result Body Mass Index 29.4 Const General: comfortable and no acute distress Resp Effort & Inspection: normal respiratory effort GI Other: Transverse loop colostomy in place Palpation (GI): Soft to palpation, not firm, nontender and no guarding Assessment & Plan Assessment & Plan (1) Colostomy in place: Code(s): Z93.3 - Colostomy status Plan: His stoma has been functioning well He says that he has lost significant weight and feels that he is ready for reversal. He feels well overall. I have reviewed his records. His barium enema study in 2019 showed an outpouching near the anastomosis and the radiologist stated that could not rule out a leak at that time I am going to repeat this enema study. I will see him in the office thereafter and discuss reversal. Coding Level of Care Code Est Pt Level 3 (92758) Diagnoses Colostomy in place Z93.3
== END 2023-03-08 08:43 | disposition home or self-care (01) ==
PROVIDERS: PCP Family Medicine; Visit Provider Surgery
DX: Z93.3 Colostomy status (principal)
CPT/HCPCS: 99213

== ENCOUNTER → 2023-03-08 08:18 | Outpatient (BNVA) | payer MEDICARE, MEDICAID, SELFPAY | PROVIDERS: PCP Family Medicine; Visit Provider Surgery | DX: Z93.3 Colostomy status (principal) | CPT/HCPCS: 99212 ==

== ENCOUNTER 2023-03-12 10:07 | Outpatient (AMB) | payer MEDICARE, MEDICAID, SELFPAY ==
--- NOTE | 2023-03-12 10:22 | MHC.OFFVIS ---
Intake Vital Signs 03/12/23 10:28 Height 5 ft 9 in Weight 215 lb BMI 31.7 BP 117/71 Blood Pressure Location Rt brachial Position Sitting Pulse 77 Pulse Source Pulse Oximeter Pulse Oximetry (%) 96 Oxygen Delivery Method Room Air Intake Visit Reasons: PILL COUNT Intake Note: Mane comes in today for a film count to belbuca, patient should have 6 films and presents with 11 films which he last took today 03/12/23 at 8am. Pain today 2/10. 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 Patient is supposed to have #6 films, in his possession has #11 films. This demonstrates a responsible attitude in regards to the medication regimen. Patient reports adequate analgesia with Belbuca 450 mcg film BID. He rates his pain 2/10. Patient reports recent increase in Belbuca allows him better functioning and less symptomatic, even on cold, rainy days as today. Patient reports with increased dose of Belbuca he is able to walk longer to achieve his weight loss goals and lost 6 lbs since last visit in December. Patient denies any fever, chills, chest pain, dizziness, shortness of breaths, bladder or bowel incontinence or saddle anesthesia. Recent random UDS came back with THC in system, otherwise was concordant. PRIOR Dr. Goddard 11/30/22: Patient is a 52 years old male who is on the phone today for medication discussion. He reports that transcutaneous buprenorphine patch does not stay on on his skin. He tried medical tape from the pharmacy but that did not help. He does not feel the medication gets into his system because the patches all these wet and frequently falling off. He requests me to go back on Belbuca which was prescribed to him in the past. I performed assessment and found no side effects of opioid medications on current examination. I will switch him to Belbuca, see as below. In the past he received radiofrequency ablation with moderate to good results. He wanted to repeat radiofrequency ablation however he is currently waiting for surgery with Dr. Riggs is colostomy reversal on 12/11/[address] Cooney. He decides to perform RFA after he is done and over with his general surgery procedure. I explained to him that the best medication to treat his pain postoperatively would be hydromorphone or fentanyl. I will be able to prescribe hydromorphone small doses for about a week of the time after his surgery. Alternatively I allowed him to accept description from Dr. Cooney. He is concerned for his cervical pain getting progressively worse. He reports he has numbness and tingling in his right 5th finger. Right upper extremity weakness with hand grasps. Cervical range of motions are limited especially with right lateral rotation, bending and extension. Pain extends from his neck in to his shoulder and down to his right lower arm. Previous cervical MRI in 2020 was noted for multilevel degenerative changes and significant for a right lateral disc protrusion at C5-C6 that is in part disc osteophyte results in severe right foraminal stenosis with compression of the exiting right C6 nerve root. Patient reports he has pending evaluation in [place] for his worsening neck pain with radiculopathy. Patient denies any fever, chills, chest pain, dizziness, shortness of breaths, bladder or bowel incontinence or saddle anesthesia. PRIOR 08/09/22 Dr. Goddard: Mane is on the phone today to discuss the results of the bilateral L2, L3-L4 does ramus L5 radiofrequency ablation which was performed on 07/06/2022. This is repeat injection. Original RFA was performed about 8 months ago and then the patient started to feel more pain in his back by the time I saw him in the office he reported very severe pain 8/10 in his lower back. At that time I offered him neuromodulation if RFA would not be working. I had [facility] in mind to try to come for his pain. However the RFA which was performed in June of 2022 gave him excellent results. He reports excellent pain relief. He reports better mobility better social interactions better activities of daily living. If RFA will be resulted in good pain relieve I do not think the neuromodulation would be necessary for this patient. He is currently in our office on buprenorphine program. He will be seeing next time a nurse for film count and refill of the medication. [facility] Medical History History of kidney cancer Degeneration, intervertebral disc, cervical Renal cell carcinoma Chronic pain syndrome Spondylosis of lumbar spine Disc degeneration, lumbar Intra-abdominal abscess Diverticulitis Surgical History History of surgery Family History Father No problems noted. Mother No problems noted. Brother No problems noted. Brother No problems noted. Sister Substance use disorder Sister No problems noted. Social History Housing: Apartment Alcohol intake: former Patient Tobacco Use Status: Current everyday Tobacco user Tobacco use type: Cigarette Cigarette Packs Per Day: 0.5 Cigarettes Per Day: 10.0 Years Smoked: 30 e-Cigarette/Vaping Use: Never Used Second Hand Smoke Exposure: No service: No Current occupational status: disabled Current occupational exposures/hazards: No Cognitive needs: No Hearing needs: No Vision needs: Yes Review of Systems Const All systems reviewed & are unremarkable except as noted in HPI and below ENT Reports Normal hearing present Neuro Reports Normal hearing present, Denies Abnormal speech present, Denies confusion and Denies Sensory deficit (Neuro) Psych Denies confusion Physical Exam Vital Signs: Last Vital Signs Pulse 77 03/12/23 10:28 BP 117/71 03/12/23 10:28 Pulse Ox 96 03/12/23 10:28 Oxygen Delivery Method Room Air 03/12/23 10:28 BMI result Body Mass Index 31.7 Const General: cooperative, no acute distress, alert, awake and well groomed; No confusion Nutritional Appearance: obese Orientation/consciousness: patient oriented x3 and No confusion Limitations: no limitations HEENT Head: Yes normal to inspection and Yes normocephalic Ears: hearing grossly normal bilaterally Face and sinus: Yes normal facial exam and Yes face symmetric Eyes General: appearance normal, both eyes and all related structures Eyelids: Yes eyelids normal Pupils: Equal, round and reactive pupils present EOM: EOMs intact bilaterally Neck Neck: Yes normal visual inspection, Yes no lymphadenopathy, Yes supple and No anterior neck swelling Resp Effort & Inspection: normal respiratory effort, able to speak in complete sentences, no audible wheezes, no cough and symmetric chest movement Cardio Jugular venous distension: no JVD Peripheral pulses: Peripheral pulses 2+ throughout GI Other: Right side stoma Palpation (GI): Soft to palpation, nontender and no guarding Back/Spine/Pelvis Cervical Spine: cervical muscular tenderness and No Cervical spine tenderness Thoracic/Lumbar Spine: thoraco-lumbar ROM limited, No thoracic spinal tenderness and No lumbar spinal tenderness Skin General skin exam: no rashes or lesions noted Neuro General: patient oriented x3 and No confusion Cranial nerves: Yes Equal, round and reactive pupils present and Yes Normal hearing present Speech: No Abnormal speech present Gait exam (Neuro): Antalgic gait present Motor exam (neuro): no tremor noted and Motor abnormalities not present Sensory Exam: No Sensory deficit (Neuro) Psych Appearance: grossly normal and well kempt Mental Status: mental status grossly normal Speech and movement: Normal speech and movement present and Clear speech present Affect: normal affect Attitude: cooperative Thought process: Normal thought process present Thought content: Normal thought content present, suicidality (none), no hallucinations and No Depressive thoughts present Insight: Good insight present (Psych) Judgement: Good judgement present (Psych) Assessment & Plan Assessment & Plan (1) Degeneration, intervertebral disc, cervical: Code(s): M50.30 - Other cervical disc degeneration, unspecified cervical region (2) Sacroiliac joint pain: Code(s): M53.3 - Sacrococcygeal disorders, not elsewhere classified (3) Disc degeneration, lumbar: Code(s): M51.36 - Other intervertebral disc degeneration, lumbar region (4) Spondylosis of lumbar spine: Code(s): M47.816 - Spondylosis without myelopathy or radiculopathy, lumbar region (5) Spondylosis, cervical: Code(s): M47.812 - Spondylosis without myelopathy or radiculopathy, cervical region (6) Cervical radiculopathy: Code(s): M54.12 - Radiculopathy, cervical region (7) Osteoarthritis of right hip: Code(s): M16.11 - Unilateral primary osteoarthritis, right hip Plan Patient has shown accountability for his medication regimen and the film count was accurate. Recent random UDS came back with THC in system, otherwise was concordant. There is no evidence of misuse, abuse or diversion at this time. Mass[employer] reviewed. He is tolerating Belbuca well without any side effects. Will send Belbuca 450 mcg BID with advanced date of 03/16/23. Patient advised to have regular dental check ups while taking Belbuca and take extra steps to help lessen the risk of serious dental problems. All questions were answered and the patient is in agreement with the plan. Will follow up in 8 weeks for a film count/UDS review or sooner if needed. Medications: Refilled buprenorphine HCl Partial Fill upon patient request. 450 mcg buccal Q12H 60 ea 1RF pain 30 days M16.11 - Unilateral primary osteoarthritis, right hip, M47.812 - Spondylosis without myelopathy or radiculopathy, cervical region, M50.30 - Other cervical disc degeneration, unspecified cervical region, M51.36 - Other intervertebral disc degeneration, lumbar region, M53.3 - Sacrococcygeal disorders, not elsewhere classified Coding Level of Care Code Est Pt Level 4 (41557) Diagnoses Degeneration, intervertebral disc, cervical M50.30 Sacroiliac joint pain M53.3 Disc degeneration, lumbar M51.36 Spondylosis of lumbar spine M47.816 Spondylosis, cervical M47.812 Cervical radiculopathy M54.12 Osteoarthritis of right hip M16.11
[2023-03-12 10:28] VITALS: BP 117/71; PULSE 77; O2SAT 96; BMI 31.7
== END 2023-03-12 10:37 | disposition home or self-care (01) ==
PROVIDERS: PCP Family Medicine; Visit Provider Nurse Practitioner Family
DX: M50.30 Other cervical disc degeneration, unspecified cervical region (principal); M53.3 Sacrococcygeal disorders, not elsewhere classified; M51.36 Other intervertebral disc degeneration, lumbar region; Z79.891 Long term (current) use of opiate analgesic; M47.816 Spondylosis without myelopathy or radiculopathy, lumbar region; M47.812 Spondylosis without myelopathy or radiculopathy, cervical region; M54.12 Radiculopathy, cervical region; M16.11 Unilateral primary osteoarthritis, right hip
CPT/HCPCS: 99214

== ENCOUNTER → 2023-03-12 10:07 | Outpatient (BNVA) | payer MEDICARE, MEDICAID, SELFPAY | PROVIDERS: PCP Family Medicine; Visit Provider Nurse Practitioner Family | DX: Z51.81 Encounter for therapeutic drug level monitoring (principal); F11.20 Opioid dependence, uncomplicated; M50.30 Other cervical disc degeneration, unspecified cervical region; M53.3 Sacrococcygeal disorders, not elsewhere classified; M51.36 Other intervertebral disc degeneration, lumbar region; M47.816 Spondylosis without myelopathy or radiculopathy, lumbar region; M47.812 Spondylosis without myelopathy or radiculopathy, cervical region; M54.12 Radiculopathy, cervical region; M16.11 Unilateral primary osteoarthritis, right hip | CPT/HCPCS: 99212 ==

== ENCOUNTER 2023-05-11 10:04 | Outpatient (AMB) | payer MEDICARE, MEDICAID, SELFPAY ==
--- NOTE | 2023-05-11 10:05 | A.OFFVIS_ITS ---
Intake Vital Signs 05/11/23 10:12 Height 5 ft 9 in Weight 216 lb 2 oz BMI 31.9 BP 121/72 Blood Pressure Location Rt brachial Position Sitting Pulse 89 Pulse Source Pulse Oximeter Pulse Oximetry (%) 98 Oxygen Delivery Method Room Air Intake Visit Reasons: PILL COUNT/lvm Intake Note: Mane comes in today for a film count to belbuca, patient should have 12 films and presents with 15 films which he last took today 05/11/23 at 7:30 am. 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 Patient is supposed to have #12 films, in his possession has #15 films. This demonstrates a responsible attitude in regards to the medication regimen. Patient reports adequate analgesia with Belbuca 450 mcg film BID. He rates his pain 4/10 which he attributes to neck pain. Patient reports he sleeps in recliner due to colostomy and has woke up with neck pain. Patient reports current dose of Belbuca allows him better functioning and less symptomatic. Patient denies any fever, chills, chest pain, dizziness, shortness of breaths, bladder or bowel incontinence or saddle anesthesia. PRIOR Dr. Goddard 11/30/22: Patient is a 52 years old male who is on the phone today for medication discussion. He reports that transcutaneous buprenorphine patch does not stay on on his skin. He tried medical tape from the pharmacy but that did not help. He does not feel the medication gets into his system because the patches all these wet and frequently falling off. He requests me to go back on Belbuca which was prescribed to him in the past. I performed assessment and found no side effects of opioid medications on current examination. I will switch him to Belbuca, see as below. In the past he received radiofrequency ablation with moderate to good results. He wanted to repeat radiofrequency ablation however he is currently waiting for surgery with Dr. Riggs is colostomy reversal on 12/11/[address] Cooney. He decides to perform RFA after he is done and over with his general surgery procedure. I explained to him that the best medication to treat his pain postoperatively would be hydromorphone or fentanyl. I will be able to prescribe hydromorphone small doses for about a week of the time after his surgery. Alternatively I allowed him to accept description from Dr. Cooney. He is concerned for his cervical pain getting progressively worse. He reports he has numbness and tingling in his right 5th finger. Right upper extremity weakness with hand grasps. Cervical range of motions are limited especially with right lateral rotation, bending and extension. Pain extends from his neck in to his shoulder and down to his right lower arm. Previous cervical MRI in 2020 was noted for multilevel degenerative changes and significant for a right lateral disc protrusion at C5-C6 that is in part disc osteophyte results in severe right foraminal stenosis with compression of the exiting right C6 nerve root. Patient reports he has pending evaluation in [place] for his worsening neck pain with radiculopathy. Patient denies any fever, chills, chest pain, dizziness, shortness of breaths, bladder or bowel incontinence or saddle anesthesia. PRIOR 08/09/22 Dr. Goddard: Mane is on the phone today to discuss the results of the bilateral L2, L3-L4 does ramus L5 radiofrequency ablation which was performed on 07/06/2022. This is repeat injection. Original RFA was performed about 8 months ago and then the patient started to feel more pain in his back by the time I saw him in the of community health he reported very severe pain 8/10 in his lower back. At that time I offered him neuromodulation if RFA would not be working. I had [facility] S[facility] in mind to try to come for his pain. However the RFA which was performed in June of 2022 gave him excellent results. He reports excellent pain relief. He reports better mobility better social interactions better activities of daily living. If RFA will be resulted in good pain relieve I do not think the neuromodulation would be necessary for this patient. He is currently in our office on buprenorphine program. He will be seeing next time a nurse for film count and refill of the medication. [facility] Medical History History of kidney cancer Degeneration, intervertebral disc, cervical Renal cell carcinoma Chronic pain syndrome Spondylosis of lumbar spine Disc degeneration, lumbar Intra-abdominal abscess Diverticulitis Surgical History History of surgery Family History Father No problems noted. Mother No problems noted. Brother No problems noted. Brother No problems noted. Sister Substance use disorder Sister No problems noted. Social History Housing: Apartment Alcohol intake: former Patient Tobacco Use Status: Current everyday Tobacco user Tobacco use type: Cigarette Cigarette Packs Per Day: 0.5 Cigarettes Per Day: 10.0 Years Smoked: 30 e-Cigarette/Vaping Use: Never Used Second Hand Smoke Exposure: No service: No Current occupational status: disabled Current occupational exposures/hazards: No Cognitive needs: No Hearing needs: No Vision needs: Yes Review of Systems Const All systems reviewed & are unremarkable except as noted in HPI and below Physical Exam Vital Signs: Last Vital Signs Pulse 89 05/11/23 10:12 BP 121/72 05/11/23 10:12 Pulse Ox 98 05/11/23 10:12 Oxygen Delivery Method Room Air 05/11/23 10:12 BMI result Body Mass Index 31.9 Const General: cooperative, no acute distress, alert, awake and well groomed Nutritional Appearance: obese Limitations: no limitations HEENT Head: Yes normal to inspection and Yes normocephalic Ears: hearing grossly normal bilaterally Face and sinus: Yes normal facial exam and Yes face symmetric Eyes General: appearance normal, both eyes and all related structures Neck Neck: Yes normal visual inspection, Yes no lymphadenopathy, Yes supple and No anterior neck swelling Resp Effort & Inspection: normal respiratory effort, able to speak in complete sentences, no audible wheezes, no cough and symmetric chest movement Cardio Jugular venous distension: no JVD Peripheral pulses: Peripheral pulses 2+ throughout GI Other: Right side stoma Palpation (GI): Soft to palpation, nontender and no guarding Back/Spine/Pelvis Cervical Spine: cervical muscular tenderness and No Cervical spine tenderness Thoracic/Lumbar Spine: thoraco-lumbar ROM limited, No thoracic spinal tenderness and No lumbar spinal tenderness Psych Appearance: grossly normal and well kempt Mental Status: mental status grossly normal Speech and movement: Normal speech and movement present and Clear speech present Affect: normal affect Attitude: cooperative Thought process: Normal thought process present Thought content: Normal thought content present, suicidality (none), no hallucinations and No Depressive thoughts present Insight: Good insight present (Psych) Judgement: Good judgement present (Psych) Assessment & Plan Assessment & Plan (1) Degeneration, intervertebral disc, cervical: Code(s): M50.30 - Other cervical disc degeneration, unspecified cervical region (2) Sacroiliac joint pain: Code(s): M53.3 - Sacrococcygeal disorders, not elsewhere classified (3) Disc degeneration, lumbar: Code(s): M51.36 - Other intervertebral disc degeneration, lumbar region (4) Spondylosis, cervical: Code(s): M47.812 - Spondylosis without myelopathy or radiculopathy, cervical region (5) Osteoarthritis of right hip: Code(s): M16.11 - Unilateral primary osteoarthritis, right hip (6) Chronic pain syndrome: Code(s): G89.4 - Chronic pain syndrome Plan Patient has shown accountability for his medication regimen and the film count was accurate. There is no evidence of misuse, abuse or diversion at this time. [employer] reviewed. He is tolerating Belbuca well without any side effects. Script for Belbuca 450 mcg BID with advanced date of 05/17/23. Patient advised to have regular dental check ups while taking Belbuca and take extra steps to help lessen the risk of serious dental problems. All questions were answered and the patient is in agreement with the plan. Follow up in 8 weeks for a film count review or sooner if needed. Medications: Refilled buprenorphine HCl Partial Fill upon patient request. 450 mcg buccal Q12H 30 days 60 ea 1RF pain M16.11 - Unilateral primary osteoarthritis, right hip, M47.812 - Spondylosis without myelopathy or radiculopathy, cervical region, M50.30 - Other cervical disc degeneration, unspecified cervical region, M51.36 - Other intervertebral disc degeneration, lumbar region, M53.3 - Sacrococcygeal disorders, not elsewhere classified Coding Level of Care Code Est Pt Level 4 (57059) Diagnoses Degeneration, intervertebral disc, cervical M50.30 Sacroiliac joint pain M53.3 Disc degeneration, lumbar M51.36 Spondylosis, cervical M47.812 Osteoarthritis of right hip M16.11 Chronic pain syndrome G89.4
[2023-05-11 10:12] VITALS: BP 121/72; PULSE 89; O2SAT 98; BMI 31.9
== END 2023-05-11 10:18 | disposition home or self-care (01) ==
PROVIDERS: PCP Family Medicine; Visit Provider Nurse Practitioner Family
DX: M50.30 Other cervical disc degeneration, unspecified cervical region (principal); M53.3 Sacrococcygeal disorders, not elsewhere classified; M51.36 Other intervertebral disc degeneration, lumbar region; M47.812 Spondylosis without myelopathy or radiculopathy, cervical region; M16.11 Unilateral primary osteoarthritis, right hip; G89.4 Chronic pain syndrome
CPT/HCPCS: 99214

== ENCOUNTER → 2023-05-11 10:04 | Outpatient (BNVA) | payer MEDICARE, MEDICAID, SELFPAY | PROVIDERS: PCP Family Medicine; Visit Provider Nurse Practitioner Family | DX: Z51.81 Encounter for therapeutic drug level monitoring (principal); F11.20 Opioid dependence, uncomplicated; M50.30 Other cervical disc degeneration, unspecified cervical region; M53.3 Sacrococcygeal disorders, not elsewhere classified; M51.36 Other intervertebral disc degeneration, lumbar region; M47.812 Spondylosis without myelopathy or radiculopathy, cervical region; M16.11 Unilateral primary osteoarthritis, right hip; G89.4 Chronic pain syndrome | CPT/HCPCS: 99212 ==

== ENCOUNTER 2023-06-26 10:31 | Outpatient (REF) | payer MEDICARE, MEDICAID, SELFPAY ==
--- NOTE | ~2023-06-26 | FL_ITS ---
EXAMINATION: XR BARIUM ENEMA CLINICAL INFORMATION: Status post diverting loop ileostomy in sigmoid resection due to prior diverticular abscess. Surgery requests barium enema prior to colostomy reversal. COMPARISON: Barium enema 06/2020 TECHNIQUE: Dilute Gastrografin was administered through the rectum via a rectal tube. Multiple spot images were then taken to assess the surgical anastomosis in the pelvis in the left colon distal to the colostomy. FINDINGS: Calcifications in the prostate are noted. Postsurgical changes are noted with a [id number] anastomosis present in the pelvis. There is a small blind segment of sigmoid colon adjacent to the surgical anastomosis in the pelvis. There is diverticulosis present in the left colon. A transverse colostomy is present. No evidence of anastomotic leak. FLUOROSCOPY TIME: 2.2 minutes DOSE AREA PRODUCT: 5700 uGy-m2 (microgray-meter squared) FL/FL barium enema IMPRESSION: 1. Status post loop transverse colostomy and sigmoidectomy with side to side anastomosis 2. There is a small blind segment of sigmoid colon adjacent to the surgical anastomosis 3. Calcifications of the prostate are noted. 4. Diverticulosis coli. This procedure was performed by Romeo Navarrete PA-C, and supervised by Dr. Alicea
== END 2023-06-26 10:32 | disposition home or self-care (01) ==
LOC: HO.XRAY 10:31
PROVIDERS: PCP Family Medicine; Visit Provider Surgery
DX: Z93.3 Colostomy status (principal)
CPT/HCPCS: 74270

== ENCOUNTER → 2023-06-26 10:33 | Outpatient (BNV) | payer MEDICARE, MEDICAID, SELFPAY | PROVIDERS: PCP Family Medicine; Visit Provider Radiology Diagnostic Radiology | DX: Z93.3 Colostomy status (principal) | CPT/HCPCS: 74270 ==

== ENCOUNTER 2023-07-04 08:45 | Outpatient (AMB) | payer MEDICARE, MEDICAID, SELFPAY ==
--- NOTE | 2023-07-04 08:47 | MHC.OFFVIS ---
Intake Intake Visit Reasons: Colostomy in place, Fl barium enema results Intake Note: This patient presents for a follow-up assessment for Barium enema results. Patient c/o; reports no complaints at this time. Analytical Consultant Required: No Accompanied by: Self / Same As Patient Allergies No Known Allergies [No Known Allergies*] Allergy (Verified 07/04/23 08:52) Medication List - Last Reconciled 07/04/23 by Renny Cooney MD buprenorphine HCl 450 mcg buccal Q12H 30 days bupropion HCl 150 mg PO QAM buspirone 30 mg PO BID citalopram 40 mg PO DAILY 90 days cyclobenzaprine 10 mg PO TID diclofenac sodium 1% (Arthritis Pain (diclofenac)) 4 grams topical QID 30 days furosemide 20 mg PO BID hydroxyzine pamoate 50 mg PO TID PRN lidocaine 5% 1 patch topical DAILY 30 days miscellaneous medical supply Shower bench/seat. As directed, duration: 999 days prazosin 5 mg PO BEDTIME 30 days trazodone 100 mg PO BEDTIME walker Rolling Walker. Daily. Duration:999days. Ht: 5'9 Wt 215. Disp#[address], Fl barium enema results HPI Details 53-year-old male for follow-up for his transverse loop colostomy. He is planning to have this reversed so I had sent him for a barium enema study last month to check the anastomosis. He denies any new complaints. He says he feels well overall. He said he was able to quit smoking 2 weeks ago but did gained some weight after that. He denies problems with this colostomy. He had urgent transverse loop colostomy in August, because of worsening diverticulitis with will abscesses. We could not a sigmoid resection at that time because of the very dense acute inflammatory changes in the sigmoid. I was able to bring him back in February, for hand assisted laparoscopic sigmoid resection and anastomosis, and left the colostomy in place for diversion in view of the difficult procedure. [facility] Medical History History of kidney cancer Degeneration, intervertebral disc, cervical Renal cell carcinoma Chronic pain syndrome Spondylosis of lumbar spine Disc degeneration, lumbar Intra-abdominal abscess Diverticulitis Surgical History History of surgery Family History Father No problems noted. Mother No problems noted. Brother No problems noted. Brother No problems noted. Sister Substance use disorder Sister No problems noted. Social History Housing: Apartment Alcohol intake: former Patient Tobacco Use Status: Current everyday Tobacco user Tobacco use type: Cigarette Cigarette Packs Per Day: 0.5 Cigarettes Per Day: 10.0 Years Smoked: 30 e-Cigarette/Vaping Use: Never Used Second Hand Smoke Exposure: No service: No Current occupational status: disabled Current occupational exposures/hazards: No Cognitive needs: No Hearing needs: No Vision needs: Yes Review of Systems Const Denies chills and Denies fever(s) Card Denies chest pain, Denies dyspnea and Denies dyspnea on exertion Resp Denies cough, Denies dyspnea and Denies dyspnea on exertion GI Denies hematochezia and Denies change in bowel habits Denies hematuria and Denies difficulty urinating Musc Denies back pain and Denies limited range of motion Neuro Denies focal weakness and Denies convulsions Psych Denies depression and Denies mood swings Physical Exam Const Other: Obese General: comfortable and no acute distress Orientation/consciousness: patient oriented x3 Neck Neck: Yes no lymphadenopathy Resp Auscultation: clear to auscultation bilaterally Cardio Rhythm: regular rhythm GI Other: Transverse loop colostomy in the right upper quadrant Palpation (GI): Soft to palpation, nontender and no guarding Neuro General: patient oriented x3 Assessment & Plan Assessment & Plan (1) Colostomy in place: Code(s): Z93.3 - Colostomy status Plan: His barium enema study not suggest any anastomotic leak nor stenosis in the area. Review of his records show that I done a colonoscopy prior to sigmoid resection in February,. I told him that it would be best to examine this area again with a flexible sigmoidoscopy prior to him undergoing reversal of his loop colostomy. I explained him the technique of this procedure. I reviewed the risks including but not limited to bleeding, perforation, as well as the benefits and alternatives. He understands and agrees to proceed. Coding Level of Care Code Est Pt Level 3 (94149) Diagnoses Colostomy in place Z93.3
== END 2023-07-04 09:19 | disposition home or self-care (01) ==
PROVIDERS: PCP Family Medicine; Visit Provider Surgery
DX: Z93.3 Colostomy status (principal)
CPT/HCPCS: 99213

== ENCOUNTER → 2023-07-04 08:45 | Outpatient (BNVA) | payer MEDICARE, MEDICAID, SELFPAY | PROVIDERS: PCP Family Medicine; Visit Provider Surgery | DX: Z93.3 Colostomy status (principal) | CPT/HCPCS: 99212 ==

== ENCOUNTER 2023-07-11 10:19 | Outpatient (AMB) | payer MEDICARE, MEDICAID, SELFPAY ==
--- NOTE | 2023-07-11 10:38 | MHC.OFFVIS ---
Intake Vital Signs 07/11/23 10:39 Height 5 ft 9 in Weight 224 lb BMI 33.1 BP 132/84 Blood Pressure Location Lt brachial Position Sitting Respiration 14 Pulse 105 H Pulse Source Pulse Oximeter Pulse Oximetry (%) 95 Oxygen Delivery Method Room Air Intake Visit Reasons: PILL COUNT/lvm Intake Note: Patient comes in for pill count to Buprenorphine hcl 450 mcg film. Allergies No Known Allergies [No Known Allergies*] Allergy (Verified 07/11/23 10:38) HPI HPI Comments History of Present Illness Details Patient is a 52 years old male presents today for a Belbuca film count. Patient is supposed to have # 32 films, in his possession has # 36 films. This demonstrates a responsible attitude in regards to the medication regimen. Patient reports adequate analgesia with Belbuca 450 mcg film BID. He rates his pain 4/10 which he attributes to neck pain. He recently had a surgery colon resection secondary to diverticulosis/diverticulitis he is now under care of a general surgeon to reconnect the ostomy to restore the continuity of the colon. Patient denies any fever, chills, chest pain, dizziness, shortness of breaths, bladder or bowel incontinence or saddle anesthesia. PRIOR Patient is a 52 years old male who is on the phone today for medication discussion. He reports that transcutaneous buprenorphine patch does not stay on on his skin. He tried medical tape from the pharmacy but that did not help. He does not feel the medication gets into his system because the patches all these wet and frequently falling off. He requests me to go back on Belbuca which was prescribed to him in the past. I performed assessment and found no side effects of opioid medications on current examination. I will switch him to Belbuca, see as below. In the past he received radiofrequency ablation with moderate to good results. He wanted to repeat radiofrequency ablation however he is currently waiting for surgery with Dr. Riggs is colostomy reversal on 12/11/[address] Cooney. He decides to perform RFA after he is done and over with his general surgery procedure. I explained to him that the best medication to treat his pain postoperatively would be hydromorphone or fentanyl. I will be able to prescribe hydromorphone small doses for about a week of the time after his surgery. Alternatively I allowed him to accept description from Dr. Cooney. He is concerned for his cervical pain getting progressively worse. He reports he has numbness and tingling in his right 5th finger. Right upper extremity weakness with hand grasps. Cervical range of motions are limited especially with right lateral rotation, bending and extension. Pain extends from his neck in to his shoulder and down to his right lower arm. Previous cervical MRI in 2020 was noted for multilevel degenerative changes and significant for a right lateral disc protrusion at C5-C6 that is in part disc osteophyte results in severe right foraminal stenosis with compression of the exiting right C6 nerve root. Patient reports he has pending evaluation in [place] for his worsening neck pain with radiculopathy. Patient denies any fever, chills, chest pain, dizziness, shortness of breaths, bladder or bowel incontinence or saddle anesthesia. Mane is on the phone today to discuss the results of the bilateral L2, L3-L4 does ramus L5 radiofrequency ablation which was performed on 07/06/2022. This is repeat injection. Original RFA was performed about 8 months ago and then the patient started to feel more pain in his back by the time I saw him in the office he reported very severe pain 8/10 in his lower back. At that time I offered him neuromodulation if RFA would not be working. I had [facility] in mind to try to come for his pain. However the RFA which was performed in June of 2022 gave him excellent results. He reports excellent pain relief. He reports better mobility better social interactions better activities of daily living. If RFA will be resulted in good pain relieve I do not think the neuromodulation would be necessary for this patient. He is currently in our office on buprenorphine program. He will be seeing next time a nurse for film count and refill of the medication. [facility] Medical History History of kidney cancer Degeneration, intervertebral disc, cervical Renal cell carcinoma Chronic pain syndrome Spondylosis of lumbar spine Disc degeneration, lumbar Intra-abdominal abscess Diverticulitis Surgical History History of surgery Family History Father No problems noted. Mother No problems noted. Brother No problems noted. Brother No problems noted. Sister Substance use disorder Sister No problems noted. Social History Housing: Apartment Alcohol intake: former Patient Tobacco Use Status: Current everyday Tobacco user Tobacco use type: Cigarette Cigarette Packs Per Day: 0.5 Cigarettes Per Day: 10.0 Years Smoked: 30 e-Cigarette/Vaping Use: Never Used Second Hand Smoke Exposure: No service: No Current occupational status: disabled Current occupational exposures/hazards: No Cognitive needs: No Hearing needs: No Vision needs: Yes Review of Systems Const All systems reviewed & are unremarkable except as noted in HPI and below Physical Exam Vital Signs: Last Vital Signs Pulse 105 H 07/11/23 10:39 Resp 14 07/11/23 10:39 BP 132/84 07/11/23 10:39 Pulse Ox 95 07/11/23 10:39 Oxygen Delivery Method Room Air 07/11/23 10:39 BMI result Body Mass Index 33.1 Const General: cooperative, no acute distress, alert, awake and well groomed Nutritional Appearance: obese Limitations: no limitations HEENT Head: Yes normal to inspection and Yes normocephalic Ears: hearing grossly normal bilaterally Face and sinus: Yes normal facial exam and Yes face symmetric Eyes General: appearance normal, both eyes and all related structures Neck Neck: Yes normal visual inspection, Yes no lymphadenopathy, Yes supple and No anterior neck swelling Resp Effort & Inspection: normal respiratory effort, able to speak in complete sentences, no audible wheezes, no cough and symmetric chest movement Cardio Jugular venous distension: no JVD Peripheral pulses: Peripheral pulses 2+ throughout GI Other: Right side stoma Palpation (GI): Soft to palpation, nontender and no guarding Back/Spine/Pelvis Cervical Spine: cervical muscular tenderness and No Cervical spine tenderness Thoracic/Lumbar Spine: thoraco-lumbar ROM limited, No thoracic spinal tenderness and No lumbar spinal tenderness Psych Appearance: grossly normal and well kempt Mental Status: mental status grossly normal Speech and movement: Normal speech and movement present and Clear speech present Affect: normal affect Attitude: cooperative Thought process: Normal thought process present Thought content: Normal thought content present, suicidality (none), no hallucinations and No Depressive thoughts present Insight: Good insight present (Psych) Judgement: Good judgement present (Psych) Assessment & Plan Assessment & Plan (1) Degeneration, intervertebral disc, cervical: Code(s): M50.30 - Other cervical disc degeneration, unspecified cervical region (2) Sacroiliac joint pain: Code(s): M53.3 - Sacrococcygeal disorders, not elsewhere classified (3) Disc degeneration, lumbar: Code(s): M51.36 - Other intervertebral disc degeneration, lumbar region (4) Spondylosis, cervical: Code(s): M47.812 - Spondylosis without myelopathy or radiculopathy, cervical region (5) Osteoarthritis of right hip: Code(s): M16.11 - Unilateral primary osteoarthritis, right hip (6) Chronic pain syndrome: Code(s): G89.4 - Chronic pain syndrome Plan The patient demonstrated responsible attitude to were the opioid medications.. MassPat reviewed. He is tolerating Belbuca well without any side effects. He went for a general surgery procedure resection of the colon secondary to diverticulosis diverticulitis. He is getting ready now to reconnection procedure to connect ostomy to the rest of the colon. He will be prescribed Belbuca with 1 refill on 07/27/2023. Next appointment in 2 months. He requests me to stop cyclobenzaprine he feels that combination of the cyclobenzaprine and Belbuca make him more drowsy. I will stop cyclobenzaprine. Medications: Refilled buprenorphine HCl Partial Fill upon patient request. 450 mcg buccal Q12H 60 ea 1RF pain 30 days M16.11 - Unilateral primary osteoarthritis, right hip, M47.812 - Spondylosis without myelopathy or radiculopathy, cervical region, M50.30 - Other cervical disc degeneration, unspecified cervical region, M51.36 - Other intervertebral disc degeneration, lumbar region, M53.3 - Sacrococcygeal disorders, not elsewhere classified Discontinued cyclobenzaprine Discontinued Reason: Doctor's Order 10 mg PO TID 90 tabs 7RF muscle spasm Coding Level of Care Code Est Pt Level 3 (79188) Diagnoses Degeneration, intervertebral disc, cervical M50.30 Sacroiliac joint pain M53.3 Disc degeneration, lumbar M51.36 Spondylosis, cervical M47.812 Osteoarthritis of right hip M16.11 Chronic pain syndrome G89.4
[2023-07-11 10:39] VITALS: BP 132/84; PULSE 105; RESP 14; O2SAT 95; BMI 33.1
== END 2023-07-11 10:47 | disposition home or self-care (01) ==
PROVIDERS: PCP Family Medicine; Visit Provider Anesthesiology
DX: G89.4 Chronic pain syndrome (principal); M50.30 Other cervical disc degeneration, unspecified cervical region; M53.3 Sacrococcygeal disorders, not elsewhere classified; Z79.891 Long term (current) use of opiate analgesic; M51.36 Other intervertebral disc degeneration, lumbar region; M16.11 Unilateral primary osteoarthritis, right hip; M47.812 Spondylosis without myelopathy or radiculopathy, cervical region
CPT/HCPCS: 99213

== ENCOUNTER → 2023-07-11 10:19 | Outpatient (BNVA) | payer MEDICARE, MEDICAID, SELFPAY | PROVIDERS: PCP Family Medicine; Visit Provider Anesthesiology | DX: G89.4 Chronic pain syndrome (principal); M50.30 Other cervical disc degeneration, unspecified cervical region; M53.3 Sacrococcygeal disorders, not elsewhere classified; M51.36 Other intervertebral disc degeneration, lumbar region; M47.812 Spondylosis without myelopathy or radiculopathy, cervical region; M16.11 Unilateral primary osteoarthritis, right hip; Z79.891 Long term (current) use of opiate analgesic | CPT/HCPCS: 99212 ==

== ENCOUNTER 2023-07-27 08:22 | Day surgery (SDC) | payer MEDICARE, MEDICAID, SELFPAY ==
[2023-07-25 09:42] VITALS: BMI 33.1
--- NOTE | 2023-07-26 10:53 | HO.ANESPROP2 ---
Documented by User: Mena Garcia NP 07/26/23 10:56 HPI - Anesthesia Eval Consult details Narrative: 53yo M for Sigmoidoscopy Flexible buprenorphine daily colostomy in situ [facility] Active Problems Active Problems: All Active Problems (Updated 07/25/23 @ 09:41 by Ree Bowers RN) Numbness and tingling in right hand (Acute) History of kidney cancer (Acute) Degeneration, intervertebral disc, cervical (Acute) Low testosterone in male (Acute) Osteoarthritis of right hip (Acute) Elevated ALT measurement (Acute) Radiculopathy, cervical (Acute) Spondylosis, lumbar, with myelopathy (Acute) Spondylosis, cervical (Acute) Disc degeneration, lumbar (Acute) Disc degeneration, lumbar (Acute) Swelling of lower extremity (Acute) Change in hearing (Acute) Vision changes (Acute) Adult general medical exam (Acute) Screening for prostate cancer (Acute) Screening for colon cancer (Acute) Muscle spasm (Acute) Osteoarthritis of right hip (Acute) Sacroiliac joint pain (Acute) Strain of cervical portion of left trapezius muscle (Acute) Neck pain (Acute) Elevated CPK (Acute) Hesitancy (Acute) Left ankle pain (Acute) Bilateral hand pain (Acute) Class 1 obesity with body mass index (BMI) of 34.0 to 34.9 in adult (Acute) Polyarthralgia (Acute) Edema (Acute) Anxiety and depression (Acute) Cervical radiculopathy (Acute) Lumbar radiculopathy (Acute) Unsteady gait (Acute) Housing or economic problem (Acute) Back pain (Acute) Anxiety (Acute) Colostomy in place (Acute) Preop cardiovascular exam (Acute) Degeneration, intervertebral disc, cervical (Acute) Renal cell carcinoma (Acute) Chronic pain syndrome (Acute) Spondylosis of lumbar spine (Acute) Disc degeneration, lumbar (Acute) Past Medical History Medical History Osteoarthritis Anxiety Depression Degeneration, intervertebral disc, cervical Renal cell carcinoma Chronic pain syndrome Spondylosis of lumbar spine Disc degeneration, lumbar Intra-abdominal abscess Diverticulitis Family History Family History Father No problems noted. Mother No problems noted. Brother No problems noted. Brother No problems noted. Sister Substance use disorder Sister No problems noted. Family history of problems with anesthesia: No Surgical History Surgical History History of surgery History of kidney surgery History of surgery History of Problems with Anesthesia: No Social History Social History Housing: Apartment Alcohol intake: former Patient Tobacco Use Status: Never used Tobacco Tobacco use type: Cigarette Cigarette Packs Per Day: 0.5 Cigarettes Per Day: 10.0 Years Smoked: 30 e-Cigarette/Vaping Use: Never Used Second Hand Smoke Exposure: No Use of substances other than those prescribed or required for medical reasons: Yes Substance Use Frequency: Weekly Are you DNR?: No Advance Directives: No Advance Directives Information Provided: Yes service: No Current occupational status: disabled Current occupational exposures/hazards: No Cognitive needs: No Hearing needs: No Vision needs: Yes Meds Allergies Allergy/AdvReac Type Severity Reaction Status Date / Time No Known Allergies Allergy Verified 07/27/23 09:07 [No Known Allergies*] Home Medications Medication Instructions Recorded Confirmed Last Taken Type buspirone 30 mg tablet 30 mg PO BID 10/06/21 07/27/23 07/26/23 History bupropion HCl 150 mg 24 hr tablet, 150 mg PO QAM 05/11/23 07/27/23 07/26/23 History extended release trazodone 100 mg tablet 100 mg PO BEDTIME PRN Sleep 05/11/23 07/27/23 Unknown History cyclobenzaprine 10 mg tablet 10 mg PO TID PRN muscle spasm 07/25/23 07/25/23 Unknown History Exam Height,Weight and Vital Signs: Height 5 ft 9 in Weight 101.605 kg Assessment and Plan Assessment Anesthesia Assessment: Chart Reviewed Final Anesthetic Review Family History of Problems with Anesthesia: No History of Problems with Anesthesia: No Documented by User: Darlene Rosas MD 07/27/23 09:27 [facility] Past Medical History Medical History Osteoarthritis Anxiety Depression Degeneration, intervertebral disc, cervical Renal cell carcinoma Chronic pain syndrome Spondylosis of lumbar spine Disc degeneration, lumbar Intra-abdominal abscess Diverticulitis Family History Family History Father No problems noted. Mother No problems noted. Brother No problems noted. Brother No problems noted. Sister Substance use disorder Sister No problems noted. Surgical History Surgical History History of surgery History of kidney surgery History of surgery Social History Social History Housing: Apartment Alcohol intake: former Patient Tobacco Use Status: Never used Tobacco Tobacco use type: Cigarette Cigarette Packs Per Day: 0.5 Cigarettes Per Day: 10.0 Years Smoked: 30 e-Cigarette/Vaping Use: Never Used Second Hand Smoke Exposure: No Use of substances other than those prescribed or required for medical reasons: Yes Substance Use Frequency: Weekly Are you DNR?: No Advance Directives: No Advance Directives Information Provided: Yes service: No Current occupational status: disabled Current occupational exposures/hazards: No Cognitive needs: No Hearing needs: No Vision needs: Yes Meds Allergies Allergy/AdvReac Type Severity Reaction Status Date / Time No Known Allergies Allergy Verified 07/27/23 09:07 [No Known Allergies*] Home Medications Medication Instructions Recorded Confirmed Last Taken Type buspirone 30 mg tablet 30 mg PO BID 10/06/21 07/27/23 07/26/23 History bupropion HCl 150 mg 24 hr tablet, 150 mg PO QAM 05/11/23 07/27/23 07/26/23 History extended release trazodone 100 mg tablet 100 mg PO BEDTIME PRN Sleep 05/11/23 07/27/23 Unknown History cyclobenzaprine 10 mg tablet 10 mg PO TID PRN muscle spasm 07/25/23 07/25/23 Unknown History Exam Airway Mallampati Class: II TM Dist: >3cm Neck ROM: Full Heart: rrr Lungs: cta Assessment and Plan Assessment Anesthesia Assessment: Anesthesia Plan Discussed Final Anesthetic Review NPO: Yes ASA Class: III Final Preanesthetic Review: No Changes in Pt Med Stat, Meds/Allgs Chart Reviewed, Consent Obtained/Reviewed and Anes Risks/Benef Reviewed Patient Risk: Intermediate Procedure Risk: Low Anesthetic Plan Anesthetic Plan: MAC: Disposition: Standard PACU
[2023-07-27 09:02] VITALS: BMI 34.2
[2023-07-27 09:24] VITALS: BP 117/76; PULSE 77; RESP 16; TEMP 35.7; O2SAT 96
[2023-07-27] MEDS: Lactated Ringers 1,000 ML 100 ML IVCONT (09:26)
--- NOTE | 2023-07-27 10:54 | MHC.SHP ---
Pre-Procedural Eval Section A - 24 Hr Update-Section A only Date of Service: 07/27/23 Section B - Complete if H&P > 30 days Chief Complaint: Colostomy status Allergies: Allergies Allergy/AdvReac Type Severity Reaction Status Date / Time No Known Allergies Allergy Verified 07/27/23 09:07 [No Known Allergies*] Plan I have reviewed the history and physical and performed a pertinent physical examination on my patient. No changes have occurred unless specified. Time Spent With Patient Time: Total time managing care of this patient today ____ minutes.
--- NOTE | 2023-07-27 11:30 | W.PM.OPN ---
Operative Note Operative Note Date of Service: 07/27/23 Narrative: Preop diagnosis: Loop colostomy in place Postop diagnosis: Loop colostomy in place, unremarkable flexible sigmoidoscopy findings, anastomosis seen at around 20 cm Procedure: Flexible sigmoidoscopy Surgeon: Renny Cooney MD The patient is a 53-year-old male who had previously undergone emergency diverting loop colostomy, and eventually had a sigmoid resection for severe diverticulitis. He is here for a flexible sigmoidoscopy to on the anastomosis prior to reversal of his diverting loop colostomy. He understands the technique of the procedure as well as the risks, benefits, and alternatives. He was brought to the operating room and placed in left lateral decubitus position under monitored anesthesia care. A surgical time-out was done. A digital rectal exam was done. There were no palpable anal canal lesions . The tip of the Olympus colonoscope was gently introduced through the anal orifice and advanced with insufflation up to about the level of 50 cm. I then proceeded to withdraw the scope with careful examination of the colonic mucosa examined the scope withdrawal. There were no lesions seen. I was able to see what appeared to be the [id number] anastomosis at level 20 same layers. This was patent and appeared to be intact. There were no lesions this area. I continue to do withdrawal the scope were careful examination of the rest of the distal sigmoid and the rectum. There were no lesions seen. The scope was then withdrawn completely with desufflation He tolerated the procedure well. There were no immediate complications. I will see him in the office for discussion of reversal of his colostomy.
[2023-07-27 11:33] VITALS: BP 102/61; PULSE 88; RESP 16; TEMP 37; O2SAT 92
[2023-07-27 11:48] VITALS: BP 119/63; PULSE 72; RESP 16; TEMP 37; O2SAT 97
== END 2023-07-27 12:15 | disposition home or self-care (01) ==
PROVIDERS: PCP Family Medicine; Visit Provider Surgery
PROC: 0DJD8ZZ Inspection of Lower Intestinal Tract, Via Natural or Artificial Opening Endoscopic (ICD-10-PCS; CPT 45330; principal; 2023-07-27 11:00)
DX: Z43.3 Encounter for attention to colostomy (principal); Z98.0 Intestinal bypass and anastomosis status; G89.4 Chronic pain syndrome; Z90.49 Acquired absence of other specified parts of digestive tract; Z87.19 Personal history of other diseases of the digestive system; Z85.528 Personal history of other malignant neoplasm of kidney; Z79.899 Other long term (current) drug therapy; Z98.890 Other specified postprocedural states
CPT/HCPCS: 45330; J2704

== ENCOUNTER → 2023-07-27 08:22 | Outpatient (BNV) | payer MEDICARE, MEDICAID, SELFPAY | PROVIDERS: PCP Family Medicine; Visit Provider Surgery | DX: Z93.3 Colostomy status (principal) | CPT/HCPCS: 45330 ==

== ENCOUNTER 2023-08-16 14:18 | Outpatient (AMB) | payer MEDICARE, MEDICAID, SELFPAY ==
--- NOTE | 2023-08-16 14:36 | A.OFFVIS_ITS ---
Intake Intake Visit Reasons: S/P flexible sigmoidoscopy Intake Note: This patient presents for a follow-up assessment status post flexible sigmoidoscopy. Patient c/o; reports no complaints at this time. [employer] Harness [employer]er Required: No Accompanied by: Self / Same As Patient Allergies No Known Allergies [No Known Allergies*] Allergy (Verified 08/16/23 14:40) HPI S/P flexible sigmoidoscopy HPI Details 53-year-old male for follow-up for his t ransverse loop colostomy. He is planning to have this reversed so I had sent him for a barium enema study last month to check the anastomosis. I also did his flexible sigmoidoscopy earlier this month and this revealed the anastomosis to be patent and intact. He denies any new complaints. He says he feels well overall. He said he was able to quit smoking 2 weeks ago but did gain some weight after that. He denies problems with this colostomy. He had urgent transverse loop colostomy in August, because of worsening diverticulitis with will abscesses. We could not a sigmoid resection at that time because of the very dense acute inflammatory changes in the sigmoid. I was able to bring him back in February, for hand assisted laparoscopic sigmoid resection and anastomosis, and left the colostomy in place for diversion in view of the difficult procedure. [facility] Medical History Osteoarthritis Anxiety Depression Degeneration, intervertebral disc, cervical Renal cell carcinoma Chronic pain syndrome Spondylosis of lumbar spine Disc degeneration, lumbar Intra-abdominal abscess Diverticulitis Surgical History History of flexible sigmoidoscopy (~07/27/23) History of surgery History of kidney surgery History of surgery Family History Father No problems noted. Mother No problems noted. Brother No problems noted. Brother No problems noted. Sister Substance use disorder Sister No problems noted. Social History Housing: Apartment Alcohol intake: former Patient Tobacco Use Status: Never used Tobacco Tobacco use type: Cigarette Cigarette Packs Per Day: 0.5 Cigarettes Per Day: 10.0 Years Smoked: 30 e-Cigarette/Vaping Use: Never Used Second Hand Smoke Exposure: No service: No Current occupational status: disabled Current occupational exposures/hazards: No Cognitive needs: No Hearing needs: No Vision needs: Yes Review of Systems Const Denies chills and Denies fever(s) Card Denies chest pain, Denies dyspnea and Denies dyspnea on exertion Resp Denies cough, Denies dyspnea and Denies dyspnea on exertion GI Denies hematochezia and Denies change in bowel habits Denies hematuria and Denies difficulty urinating Musc Denies back pain and Denies limited range of motion Neuro Denies focal weakness and Denies convulsions Psych Denies depression and Denies mood swings Physical Exam Const Other: Appears overweight General: comfortable and no acute distress Orientation/consciousness: patient oriented x3 Neck Neck: Yes no lymphadenopathy Resp Auscultation: clear to auscultation bilaterally Cardio Rhythm: regular rhythm GI Other: Colostomy in place the right side the upper abdomen Palpation (GI): Soft to palpation, nontender and no guarding Neuro General: patient oriented x3 Assessment & Plan Assessment & Plan (1) Colostomy in place: Code(s): Z93.3 - Colostomy status Plan: He has a diverting loop colostomy from the transverse colon on the right side after having a difficult sigmoid resection for severe diverticular disease he is ready to have this reversed His barium enema as well as his flexible sigmoidoscopy done showed patency of the anastomosis as well as the staple line being intact. I reviewed with him the technique of reversal of the loop colostomy. I explained to him that there has a possibility we may need to do a laparotomy. I discussed the risks including but not limited to bleeding, infections, staple line leak, bowel injury, obstruction, ileus, inherent risks of anesthesia including FL, blood clots, pneumonia, as well as the benefits and alternatives. He understands and wants to proceed. He will not require a bowel prep. He will need to stay in the hospital postoperatively for few days until return of GI function. Coding Level of Care Code Est Pt Level 4 (72135) Diagnoses Colostomy in place Z93.3
== END 2023-08-16 14:51 | disposition home or self-care (01) ==
PROVIDERS: PCP Family Medicine; Visit Provider Surgery
DX: Z93.3 Colostomy status (principal)
CPT/HCPCS: 99214

== ENCOUNTER → 2023-08-16 14:18 | Outpatient (BNVA) | payer MEDICARE, MEDICAID, SELFPAY | PROVIDERS: PCP Family Medicine; Visit Provider Surgery | DX: Z93.3 Colostomy status (principal) | CPT/HCPCS: 99212 ==

== ENCOUNTER 2023-09-06 10:41 | Outpatient (AMB) | payer MEDICARE, MEDICAID, SELFPAY ==
--- NOTE | 2023-09-06 10:48 | MHC.OFFVIS ---
Intake Vital Signs 09/06/23 10:55 Height 5 ft 9 in Weight 217 lb BMI 32.0 BP 132/80 Blood Pressure Location Lt brachial Position Sitting Respiration 14 Pulse 92 Pulse Source Pulse Oximeter Pulse Oximetry (%) 96 Oxygen Delivery Method Room Air Intake Visit Reasons: PILL COUNT Intake Note: Patient comes in for pill count. Reports pain 5/10. Allergies No Known Allergies [No Known Allergies*] Allergy (Verified 09/06/23 10:55) HPI HPI Comments History of Present Illness Details Rudolph is very pleasant 52 years old male presents today for a Belbuca film count. His supposed to have no pills in his possession. He had 2 films with his possession. This demonstrates a responsible attitude in regards to the medication regimen. Patient reports adequate analgesia with Belbuca 450 mcg film BID. He rates his pain 4/10 which he attributes to neck pain. He recently had a surgery colon resection secondary to diverticulosis/diverticulitis he is now under care of a general surgeon to reconnect the ostomy to restore the continuity of the colon. He reports that he will be scheduled for a surgery in September. Patient denies any fever, chills, chest pain, dizziness, shortness of breaths, bladder or bowel incontinence or saddle anesthesia. He does not have naloxone in his possession. Although buprenorphine is lower risk for opioid overdose nevertheless it has not 0. I will prescribe him naloxone today. PRIOR In the past he received radiofrequency ablation with moderate to good results. He wanted to repeat radiofrequency ablation however he is currently waiting for surgery with Dr. Riggs is colostomy reversal He decides to perform RFA after he is done and over with his general surgery procedure. I explained to him that the best medication to treat his pain postoperatively would be hydromorphone or fentanyl. He is concerned for his cervical pain getting progressively worse. He reports he has numbness and tingling in his right 5th finger. Right upper extremity weakness with hand grasps. Cervical range of motions are limited especially with right lateral rotation, bending and extension. Pain extends from his neck in to his shoulder and down to his right lower arm. Previous cervical MRI in 2020 was noted for multilevel degenerative changes and significant for a right lateral disc protrusion at C5-C6 that is in part disc osteophyte results in severe right foraminal stenosis with compression of the exiting right C6 nerve root. Patient reports he has pending evaluation in [place] for his worsening neck pain with radiculopathy. Patient denies any fever, chills, chest pain, dizziness, shortness of breaths, bladder or bowel incontinence or saddle anesthesia. . COUNT INCLUDES THE [facility] Medical History Osteoarthritis Anxiety Depression Degeneration, intervertebral disc, cervical Renal cell carcinoma Chronic pain syndrome Spondylosis of lumbar spine Disc degeneration, lumbar Intra-abdominal abscess Diverticulitis Surgical History History of flexible sigmoidoscopy (~07/27/23) History of surgery History of kidney surgery History of surgery Family History Father No problems noted. Mother No problems noted. Brother No problems noted. Brother No problems noted. Sister Substance use disorder Sister No problems noted. Social History Housing: Apartment Alcohol intake: former Patient Tobacco Use Status: Never used Tobacco Tobacco use type: Cigarette Cigarette Packs Per Day: 0.5 Cigarettes Per Day: 10.0 Years Smoked: 30 e-Cigarette/Vaping Use: Never Used Second Hand Smoke Exposure: No service: No Current occupational status: disabled Current occupational exposures/hazards: No Cognitive needs: No Hearing needs: No Vision needs: Yes Review of Systems Const All systems reviewed & are unremarkable except as noted in HPI and below Physical Exam Vital Signs: Last Vital Signs Pulse 92 09/06/23 10:55 Resp 14 09/06/23 10:55 BP 132/80 09/06/23 10:55 Pulse Ox 96 09/06/23 10:55 Oxygen Delivery Method Room Air 09/06/23 10:55 BMI result Body Mass Index 32.0 Const Other: Appears overweight General: comfortable and no acute distress Nutritional Appearance: obese Orientation/consciousness: patient oriented x3 Limitations: no limitations HEENT Head: Yes normal to inspection and Yes normocephalic Ears: hearing grossly normal bilaterally Face and sinus: Yes normal facial exam and Yes face symmetric Eyes General: appearance normal, both eyes and all related structures Neck Neck: Yes no lymphadenopathy Resp Effort & Inspection: normal respiratory effort, able to speak in complete sentences, no audible wheezes, no cough and symmetric chest movement Auscultation: clear to auscultation bilaterally Cardio Jugular venous distension: no JVD Rhythm: regular rhythm Peripheral pulses: Peripheral pulses 2+ throughout GI Other: Colostomy in place the right side the upper abdomen Palpation (GI): Soft to palpation, nontender and no guarding Back/Spine/Pelvis Cervical Spine: cervical muscular tenderness and No Cervical spine tenderness Thoracic/Lumbar Spine: thoraco-lumbar ROM limited, No thoracic spinal tenderness and No lumbar spinal tenderness Neuro General: patient oriented x3 Psych Appearance: grossly normal and well kempt Mental Status: mental status grossly normal Speech and movement: Normal speech and movement present and Clear speech present Affect: normal affect Attitude: cooperative Thought process: Normal thought process present Thought content: Normal thought content present, suicidality (none), no hallucinations and No Depressive thoughts present Insight: Good insight present (Psych) Judgement: Good judgement present (Psych) Results Reviewed Results Reviewed: MRI cervical spine Oct, 2020: Cervical alignment is normal. The vertebral body heights are maintained. The disc volumes are preserved. There is no bone marrow edema. There are no acute fractures. Craniocervical junction is unremarkable. Cervical arterial flow voids are maintained. No significant extraspinal soft tissue findings. Accounting for artifact there is no cord signal abnormality. Franko-cisterna magna. C2-C3: Posterior disc contour is normal. Uncovertebral joint spurring and facet arthropathy result in mild left-sided foraminal encroachment. C3-C4: Slight annular disc bulge. Uncovertebral joint hypertrophy and hypertrophic facet arthropathy result in moderate right and mild left foraminal stenosis. C4-C5: Slight annular disc bulge. Uncovertebral joint hypertrophy and hypertrophic facet arthropathy result in moderate left and mild to moderate right foraminal stenosis. C5-C6: Right paracentral disc protrusion mildly indents the ventral thecal sac. A right lateral disc protrusion that is in part disc osteophyte results in severe right foraminal stenosis with compression of the exiting right C6 nerve root. Mild left foraminal encroachment. C6-C7: Shallow right paracentral disc protrusion mildly narrows the central canal. Uncovertebral joint spurring and facet arthropathy result in moderate to severe bilateral foraminal stenosis. C7-T1: Disc contour is normal. No central canal stenosis and no foraminal stenosis. IMPRESSION: - At C5-C6, a right lateral disc protrusion that is in part disc osteophyte results in severe right foraminal stenosis with compression of the exiting right C6 nerve root. Shallow right paracentral disc protrusion mildly narrows the central canal on the right side. ? - At C6-C7, multifactorial degenerative changes result in moderate to severe bilateral foraminal stenosis. ? - Spondylitic changes also result in moderate right C3-C4 as well as moderate left C5 foraminal stenosis. ? Assessment & Plan Assessment & Plan (1) Degeneration, intervertebral disc, cervical: Code(s): M50.30 - Other cervical disc degeneration, unspecified cervical region (2) Sacroiliac joint pain: Code(s): M53.3 - Sacrococcygeal disorders, not elsewhere classified (3) Disc degeneration, lumbar: Code(s): M51.36 - Other intervertebral disc degeneration, lumbar region (4) Spondylosis, cervical: Code(s): M47.812 - Spondylosis without myelopathy or radiculopathy, cervical region (5) Osteoarthritis of right hip: Code(s): M16.11 - Unilateral primary osteoarthritis, right hip (6) Chronic pain syndrome: Code(s): G89.4 - Chronic pain syndrome Plan He is unable to tolerate positioning prone awake, this is why the interventional procedures postpone. My understanding is that the surgery on his neck is postpone as well due to the same reason. He is scheduled for colostomy reversal with Dr. Cooney in September. After that we come back to the discussion of the interventional pain medicine procedures as well as possibility of treating his neck pain with neurosurgery. The buprenorphine renewed as below. The patient is also ordered the medication naloxone intranasal for possible overdose event. Next appointment in 2 months. Medications: New naloxone 4 mg/actuation spray 1 dose into ONE nostril; alternate nostrils w each dose until help arrives 4 mg intranasal Q3M 1 day PRN 2 ea 0RF opioid overdose Refilled buprenorphine HCl Partial Fill upon patient request. 450 mcg buccal Q12H 30 days 60 ea 1RF pain M16.11 - Unilateral primary osteoarthritis, right hip, M47.812 - Spondylosis without myelopathy or radiculopathy, cervical region, M50.30 - Other cervical disc degeneration, unspecified cervical region, M51.36 - Other intervertebral disc degeneration, lumbar region, M53.3 - Sacrococcygeal disorders, not elsewhere classified Coding Level of Care Code Est Pt Level 3 (63777) Diagnoses Degeneration, intervertebral disc, cervical M50.30 Sacroiliac joint pain M53.3 Disc degeneration, lumbar M51.36 Spondylosis, cervical M47.812 Osteoarthritis of right hip M16.11 Chronic pain syndrome G89.4
[2023-09-06 10:55] VITALS: BP 132/80; PULSE 92; RESP 14; O2SAT 96; BMI 32.0
== END 2023-09-06 11:16 | disposition home or self-care (01) ==
PROVIDERS: PCP Family Medicine; Visit Provider Anesthesiology
DX: G89.4 Chronic pain syndrome (principal); M50.30 Other cervical disc degeneration, unspecified cervical region; M53.3 Sacrococcygeal disorders, not elsewhere classified; Z79.891 Long term (current) use of opiate analgesic; M51.36 Other intervertebral disc degeneration, lumbar region; M47.812 Spondylosis without myelopathy or radiculopathy, cervical region; M16.11 Unilateral primary osteoarthritis, right hip
CPT/HCPCS: 99213

== ENCOUNTER → 2023-09-06 10:41 | Outpatient (BNVA) | payer MEDICARE, MEDICAID, SELFPAY | PROVIDERS: PCP Family Medicine; Visit Provider Anesthesiology | DX: M50.30 Other cervical disc degeneration, unspecified cervical region (principal); M53.3 Sacrococcygeal disorders, not elsewhere classified; M51.36 Other intervertebral disc degeneration, lumbar region; M47.812 Spondylosis without myelopathy or radiculopathy, cervical region; M16.11 Unilateral primary osteoarthritis, right hip; G89.4 Chronic pain syndrome; Z51.81 Encounter for therapeutic drug level monitoring; Z79.891 Long term (current) use of opiate analgesic | CPT/HCPCS: 99212 ==

== ENCOUNTER 2023-09-18 08:44 | Inpatient (IN) | payer MEDICARE, MEDICAID, SELFPAY ==
[2023-09-14 10:02] VITALS: BMI 31.9
--- NOTE | 2023-09-17 10:10 | HO.ANESPROP2 ---
HPI - Anesthesia Eval Consult details Narrative: 53yo M for Reversal of Colostomy,Possible Laparotomy Buprenorphine SL 450mcg BID Phone assessment only PMF Active Problems Active Problems: All Active Problems (Updated 07/25/23 @ 09:41 by Ree Bowers RN) Numbness and tingling in right hand (Acute) History of kidney cancer (Acute) Degeneration, intervertebral disc, cervical (Acute) Low testosterone in male (Acute) Osteoarthritis of right hip (Acute) Elevated ALT measurement (Acute) Radiculopathy, cervical (Acute) Spondylosis, lumbar, with myelopathy (Acute) Spondylosis, cervical (Acute) Disc degeneration, lumbar (Acute) Disc degeneration, lumbar (Acute) Swelling of lower extremity (Acute) Change in hearing (Acute) Vision changes (Acute) Adult general medical exam (Acute) Screening for prostate cancer (Acute) Screening for colon cancer (Acute) Muscle spasm (Acute) Osteoarthritis of right hip (Acute) Sacroiliac joint pain (Acute) Strain of cervical portion of left trapezius muscle (Acute) Neck pain (Acute) Elevated CPK (Acute) Hesitancy (Acute) Left ankle pain (Acute) Bilateral hand pain (Acute) Class 1 obesity with body mass index (BMI) of 34.0 to 34.9 in adult (Acute) Polyarthralgia (Acute) Edema (Acute) Anxiety and depression (Acute) Cervical radiculopathy (Acute) Lumbar radiculopathy (Acute) Unsteady gait (Acute) Housing or economic problem (Acute) Back pain (Acute) Anxiety (Acute) Colostomy in place (Acute) Preop cardiovascular exam (Acute) Degeneration, intervertebral disc, cervical (Acute) Renal cell carcinoma (Acute) Chronic pain syndrome (Acute) Spondylosis of lumbar spine (Acute) Disc degeneration, lumbar (Acute) Past Medical History Medical History Osteoarthritis Anxiety Depression Degeneration, intervertebral disc, cervical Renal cell carcinoma Chronic pain syndrome Spondylosis of lumbar spine Disc degeneration, lumbar Intra-abdominal abscess Diverticulitis Family History Family History Father No problems noted. Mother No problems noted. Brother No problems noted. Brother No problems noted. Sister Substance use disorder Sister No problems noted. Family history of problems with anesthesia: No Surgical History Surgical History History of flexible sigmoidoscopy (~07/27/23) History of surgery History of kidney surgery History of surgery History of Problems with Anesthesia: No Social History Social History Household Members: Significant Other Housing: Apartment Do you presently have visiting nurse or other home services: No Alcohol intake: former Patient Tobacco Use Status: Former Tobacco user Quit Date: 07/20/23 Tobacco use type: Cigarette Cigarette Packs Per Day: 0.5 Cigarettes Per Day: 10 Years Smoked: 30 e-Cigarette/Vaping Use: Never Used Second Hand Smoke Exposure: No Substance Use Type: Marijuana service: No Current occupational status: disabled Current occupational exposures/hazards: No Cognitive needs: No Hearing needs: No Vision needs: Yes Meds Allergies Allergy/AdvReac Type Severity Reaction Status Date / Time No Known Allergies Allergy Verified 09/06/23 10:55 [No Known Allergies*] Home Medications Medication Instructions Recorded Confirmed Last Taken Type buspirone 30 mg tablet 30 mg PO BID 10/06/21 09/14/23 09/17/23 History bupropion HCl 150 mg 24 hr tablet, 150 mg PO QAM 05/11/23 09/14/23 09/17/23 History extended release trazodone 100 mg tablet 100 mg PO BEDTIME PRN Sleep 05/11/23 09/14/23 09/12/23 History cyclobenzaprine 10 mg tablet 10 mg PO TID PRN muscle spasm 07/25/23 09/14/23 09/17/23 History citalopram 40 mg tablet 40 mg PO QAM 09/14/23 09/14/23 09/17/23 History furosemide 20 mg tablet 20 mg PO BID fluid retention 09/14/23 09/14/23 09/16/23 History Exam Height,Weight and Vital Signs: Height 5 ft 9 in Weight 97.976 kg Assessment and Plan Assessment Anesthesia Assessment: Chart Reviewed Final Anesthetic Review Family History of Problems with Anesthesia: No History of Problems with Anesthesia: No
[2023-09-18] VITALS (15 sets, daily range): BP systolic 108–151; BP diastolic 54–91; PULSE 63–84; RESP 16–20; TEMP 36.1–36.2; O2SAT 92–99; BMI 32.1; BMI 32.7
[2023-09-18] MEDS: Lactated Ringers 1,000 ML 100 ML IVCONT ×3 (08:02→23:04)
[2023-09-18 08:20] LABS: Hematocrit 46.4 % (42.0-52.0); Hemoglobin 16.4 g/dl (14.0-18.0); Mean Corpuscular HGB Conc 35.3 g/dl (31.0-36.0); Mean Corpuscular Hemoglobin 32.5 pg (27.0-33.0); Mean Corpuscular Volume 91.9 fL (80.0-98.0); Mean Platelet Volume 9.5 fL (9.4-12.4); Platelet Count 234 X10*3/uL (160-400); Red Blood Count 5.05 X10*6/uL (4.60-5.80); Red Cell Distribution Width 12.8 % (11.0-16.0); White Blood Count 7.6 X10*3/uL (4.8-10.8)
[2023-09-18 08:35] LABS: Alanine Aminotransferase 17 U/L (0-40); Albumin Level 3.9 g/dL (3.5-5.0); Alkaline Phosphatase 76 U/L (39-117); Anion Gap 11 (12-20); Aspartate Amino Transferase 18 U/L (5-37); Bilirubin Total 0.4 mg/dL (0.0-1.0); Blood Urea Nitrogen 13 mg/dL (9-16); Calcium 9.2 mg/dL (8.4-10.2); Carbon Dioxide 31 mmol/L (22-29); Chloride 103 mmol/L (96-108); Creatinine Clr Calc Pharmacy 85.5; Estimated Glomerular Filt Rate > 60; Glucose Fasting 90 mg/dL (60-99); Sodium 141 mmol/L (135-145); Total Protein 6.4 g/dL (6.5-8.0)
--- NOTE | 2023-09-18 08:39 | P.HPSUR_ITS ---
Pre-Procedural Eval Section A - 24 Hr Update-Section A only Date of Service: 09/18/23 Section B - Complete if H&P > 30 days Chief Complaint: Colostomy status Details of Present Illness: He had a previous diverticular abscess in the sigmoid; he underwent transverse loop colostomy at that time as it could not mobilize the sigmoid in view of severe acute inflammation. He eventually had the sigmoid resection done a few months after but we had left the loop colostomy in place because of the difficulty of the procedure Underwent treatment for renal cell cancer; he is now ready for reversal of his loop colostomy; barium enema test showed the anastomosis in the sigmoid to be patent intact Relevant Family History (Specify if Yes): No Relevant Social History: Tobacco Use Present Medications: see Short Stay Collaborative assessment Medical History: Significant History (Osteoarthritis, renal cell cancer, anxiety depression, cervical radiculopathy, overweight, chronic pain syndrome, history of smoking) Allergies: Allergies Allergy/AdvReac Type Severity Reaction Status Date / Time No Known Allergies Allergy Verified 09/06/23 10:55 [No Known Allergies*] Review of Systems Sugical H&P ROS: Negative: Constitution, Cardiovascular, Respiratory, Roxy rological, Psychiatric, Hem-Onc, Allergic/Immunologic, Gastrointestinal, Genitourinary, Musculoskeletal, Integumentary, Endocrine and Eyes/Ears/Nose/Throat Exam Surgical H&P Exam: Normal: HEENT, Normal: Heart, Normal: Lungs, Normal: Extremities, Normal: Skin and Normal: Neurological and Significant Findings: Abdomen (Transverse loop colostomy on the right upper quadrant) Plan Diagnosis/Plan: Unchanged I have reviewed the history and physical and performed a pertinent physical examination on my patient. No changes have occurred unless specified. Time Spent With Patient Time: Total time managing care of this patient today ____ minutes.
--- NOTE | 2023-09-18 09:01 | P.CONAN_ITS ---
PENDING SALE TO [facility] Active Problems Active Problems: All Active Problems (Updated 07/25/23 @ 09:41 by Ree Bowers RN) Numbness and tingling in right hand (Acute) History of kidney cancer (Acute) Degeneration, intervertebral disc, cervical (Acute) Low testosterone in male (Acute) Osteoarthritis of right hip (Acute) Elevated ALT measurement (Acute) Radiculopathy, cervical (Acute) Spondylosis, lumbar, with myelopathy (Acute) Spondylosis, cervical (Acute) Disc degeneration, lumbar (Acute) Disc degeneration, lumbar (Acute) Swelling of lower extremity (Acute) Change in hearing (Acute) Vision changes (Acute) Adult general medical exam (Acute) Screening for prostate cancer (Acute) Screening for colon cancer (Acute) Muscle spasm (Acute) Osteoarthritis of right hip (Acute) Sacroiliac joint pain (Acute) Strain of cervical portion of left trapezius muscle (Acute) Neck pain (Acute) Elevated CPK (Acute) Hesitancy (Acute) Left ankle pain (Acute) Bilateral hand pain (Acute) Class 1 obesity with body mass index (BMI) of 34.0 to 34.9 in adult (Acute) Polyarthralgia (Acute) Edema (Acute) Anxiety and depression (Acute) Cervical radiculopathy (Acute) Lumbar radiculopathy (Acute) Unsteady gait (Acute) Housing or economic problem (Acute) Back pain (Acute) Anxiety (Acute) Colostomy in place (Acute) Preop cardiovascular exam (Acute) Degeneration, intervertebral disc, cervical (Acute) Renal cell carcinoma (Acute) Chronic pain syndrome (Acute) Spondylosis of lumbar spine (Acute) Disc degeneration, lumbar (Acute) Past Medical History Medical History Osteoarthritis Anxiety Depression Degeneration, intervertebral disc, cervical Renal cell carcinoma Chronic pain syndrome Spondylosis of lumbar spine Disc degeneration, lumbar Intra-abdominal abscess Diverticulitis Functional capacity: independent ambulation Family History Family History Father No problems noted. Mother No problems noted. Brother No problems noted. Brother No problems noted. Sister Substance use disorder Sister No problems noted. Family history of problems with anesthesia: No Surgical History Surgical History History of flexible sigmoidoscopy (~07/27/23) History of surgery History of kidney surgery History of surgery History of Problems with Anesthesia: No Social History Social History Housing: Apartment Alcohol intake: former Patient Tobacco Use Status: Former Tobacco user Quit Date: 07/20/23 Tobacco use type: Cigarette Cigarette Packs Per Day: 0.5 Cigarettes Per Day: 10 Years Smoked: 30 e-Cigarette/Vaping Use: Never Used Second Hand Smoke Exposure: No Advance Directives Information Provided: Yes (brochure mailed) Advance Directives on File: No service: No Current occupational status: disabled Current occupational exposures/hazards: No Cognitive needs: No Hearing needs: No Vision needs: Yes Meds Allergies Allergy/AdvReac Type Severity Reaction Status Date / Time No Known Allergies Allergy Verified 09/06/23 10:55 [No Known Allergies*] Active Medications: Current Medications Heparin Sodium (Porcine) (Heparin Sodium,Porcine 5,000 Unit/Ml Vial) 5,000 unit SUBCUT Q8H [facility] Lactated Ringer's (Lr) 1,000 mls @ 100 mls/hr IVCONT .Q10H [facility] Last Admin: 09/18/23 08:02 Dose: 100 mls/hr Sodium Chloride (0.9 % Sodium Chloride Flush 3 Ml Syringe) 3 ml IVFLUSH QSHIFT [facility] Home Medications Medication Instructions Recorded Confirmed Last Taken Type buspirone 30 mg tablet 30 mg PO BID 10/06/21 09/14/23 09/17/23 History bupropion HCl 150 mg 24 hr tablet, 150 mg PO QAM 05/11/23 09/14/23 09/17/23 History extended release trazodone 100 mg tablet 100 mg PO BEDTIME PRN Sleep 05/11/23 09/14/23 09/12/23 History cyclobenzaprine 10 mg tablet 10 mg PO TID PRN muscle spasm 07/25/23 09/14/23 09/17/23 History citalopram 40 mg tablet 40 mg PO QAM 09/14/23 09/14/23 09/17/23 History furosemide 20 mg tablet 20 mg PO BID fluid retention 09/14/23 09/14/23 09/16/23 History Exam Height,Weight and Vital Signs: Height 5 ft 9 in Weight 98.6 kg Last Vital Signs Temp 97 F 09/18/23 07:43 Pulse 84 09/18/23 07:43 Resp 18 09/18/23 07:43 BP 115/75 09/18/23 07:43 Pulse Ox 97 09/18/23 07:43 O2 Del Method Room Air 09/18/23 07:43 Pertinent Lab Results Pertinent Lab Results: Laboratory Tests 09/18/23 08:12 WBC 7.6 RBC 5.05 Hgb 16.4 Hct 46.4 MCV 91.9 MCH 32.5 MCHC 35.3 RDW 12.8 Plt Count 234 MPV 9.5 Absolute Nucleated RBC 0.000 Nucleated RBC % (auto) 0.0 Sodium 141 Potassium 4.0 Chloride 103 Carbon Dioxide 31 H Anion Gap 11 L BUN 13 Creatinine 1.17 Estim Creat Clear Calc 85.5 Estimated GFR > 60 Fasting Glucose 90 Calcium 9.2 Total Bilirubin 0.4 AST 18 ALT 17 Alkaline Phosphatase 76 Total Protein 6.4 L Albumin 3.9 Airway Mallampati Class: II TM Dist: >3cm Neck ROM: Full Heart: RRR Lungs: CTA Assessment and Plan Assessment Anesthesia Assessment: Anesthesia Plan Discussed Final Anesthetic Review Family History of Problems with Anesthesia: No History of Problems with Anesthesia: No NPO: Yes ASA Class: II Final Preanesthetic Review: Meds/Allgs Chart Reviewed, Consent Obtained/Reviewed and Anes Risks/Benef Reviewed Patient Risk: Intermediate Procedure Risk: Intermediate Anesthetic Plan Anesthetic Plan: GA Disposition: Standard PACU
--- NOTE | 2023-09-18 10:25 | W.PM.OPN ---
Operative Note Operative Note Date of Service: 09/18/23 Narrative: Preop diagnosis: Transverse loop colostomy in place Postop diagnosis: The same Procedure: Reversal of transverse loop colostomy, this is a adhesions Surgeon: Renny Cooney MD special education assistant: RAHUL De Los Santos The patient is a 53-year-old male with a history of complex surgeries. He had a transverse loop colostomy for severe diverticulitis with an abscess in 2019. He had sigmoid resection with anastomosis, thereafter, and the transverse loop colostomy was left in place because of the difficulty of the procedure He is here for reversal of his loop colostomy. He understands the technique of the planned procedure as well as the risks, benefits, and alternatives. He was brought to the operating room. He was placed supine under general anesthesia via endotracheal tube. The abdomen was prepped and draped in the usual sterile fashion. A surgical time-out was done. The patient received Cefotan 2 g IV preoperatively I closed the efferent and afferent limbs of the loop colostomy with a running Polysorb stitch. I then made an elliptical incision around the stoma blade 15. This carried down with electrocautery through the full-thickness of the skin and subcutaneous fat down to the fascia. The fascia was identified and exposed. By doing so, I was able to carefully identify the interface between the fascial edge and the wall of the stoma. I applied more clamps on the fascial edge to allow retraction. By doing so, I was able to carefully separate the afferent and efferent limbs of the ostomy from the stoma edge. The patient also had a parastomal hernia so we had to carefully. The hernia contents from the subcutaneous layer. I had to do a lot of lysis of adhesions using electrocautery as well as blunt dissection because of the presence of skin adhesions surrounding the stoma. We had to proceed slowly so as to ensure that we were not causing any tear on the colon wall Eventually, I was able to completely reduce the entire stoma through the fascial opening. I was able to pull up the afferent and efferent limbs. I carefully identified the efferent and afferent limbs at the colostomy stump itself. I used a MARIBELL 60 mm stapler to divide both the efferent and afferent limbs at the stomal stump. I had to divide attached mesentery to the stoma stump LigaSure. This was sent as a specimen I brought up both efferent and afferent limbs. These were both encased in adherent omentum and fat so I had to carefully create this adhesions to expose the anti mesenteric side of both stoma limbs. I then opened up the apex of each staple line using Mota scissors. I entered the lumen of each limb. I aligned the anti mesenteric side of each limb. I then positioned each arm of the MARIBELL 60 stapler. The stapler was closed. I inspected the staple line 1st to firing to make sure that there was no mesentery or any bowel loops trapped it has been this staplers I then fired the stapler to create our cpop-ab-besy anastomosis at the anti mesenteric side. I examined the lumen. The staple line was intact and there was no bleeding. I treated the anastomosis by closing the enterotomy with a TA 60 mm stapler. I applied a seromuscular Polysorb 3-0 stitch at the crotch of the staple line to release tension. The anastomosis appeared well vascularized without any signs of ischemia. I was able to palpate for the lumen with my index finger and thumb and this appeared patent. I irrigated after replacing the bowel loops back into the peritoneal cavity. We changed gloves. I closed the fascia with a running Maxon 1 stitch Skin closure was achieved loosely with skin dawson. The 60 wants infiltrated with Marcaine 0.5% for postop analgesia. Dressings were applied. The procedure was completed The patient tolerated the procedure well. There were no immediate complications. Initial and final counts of sponges and instruments were correct. Estimated blood loss was about 25 cc. The patient was extubated without difficulty and transferred to the recovery room with stable vital signs.
[2023-09-18] MEDS: fentaNYL citrate/PF 100 MCG/2 ML VIAL 25 MCG IVPUSH ×4 (11:05→11:20)
[2023-09-18] MEDS: oxyCODONE HCl Immed Release 5 MG TABLET PO (11:08)
[2023-09-18] MEDS: Acetaminophen 1,000 MG/100 ML PIGGYBACK 400 MG IV ×3 (12:57→23:05)
[2023-09-18] MEDS: HYDROmorphone HCl 0.5 MG/0.5 ML SYRINGE IVPUSH ×3 (12:58→20:55)
[2023-09-18] MEDS: buPROPion HCl XL 150 MG TAB.ER.24H PO (13:02)
[2023-09-18] MEDS: Escitalopram Oxalate 20 MG TABLET PO (13:02)
--- NOTE | 2023-09-18 13:10 | PHA.MEDREC ---
Pharmacy Consult ? Medication Reconciliation Pharmacy has reviewed the medication reconciliation.
--- NOTE | 2023-09-18 14:22 | PM.EVENT ---
Event Note Date of Service: 09/18/23 Event Note: seen postop has adequate pain control looks comforttable stable VS dressings dry continue pain mgt on clear liquids doing well postop Time Spent With Patient Time: Total time managing care of this patient today ____ minutes.
[2023-09-18] MEDS: busPIRone HCl 10 MG TABLET 30 MG PO (20:50)
[2023-09-19 03:54] VITALS: BP 108/58; PULSE 63; RESP 17; TEMP 36.1; O2SAT 93
[2023-09-19] MEDS: HYDROmorphone HCl 0.5 MG/0.5 ML SYRINGE IVPUSH ×5 (06:01→22:09)
[2023-09-19] MEDS: Acetaminophen 1,000 MG/100 ML PIGGYBACK 400 MG IV ×3 (06:04→23:50)
[2023-09-19 06:48] LABS: MANUAL DIFF FLAG NO
[2023-09-19 06:56] VITALS: BP 118/66; PULSE 64; RESP 16; TEMP 36.8; O2SAT 93
[2023-09-19 07:04] LABS: Basophils Percent Auto 0.4 % (0-2); Eosinophils Absolute Auto 0.1 X10*3/uL (0.0-0.4); Eosinophils Percent Auto 0.8 % (0-4); Hematocrit 43.4 % (42.0-52.0); Hemoglobin 14.9 g/dl (14.0-18.0); Imm Gran Abs Auto 0.04 X10*3/uL (0.00-0.03); Imm Gran Pct Auto 0.4 % (0.0-0.4); Lymphocytes Absolute Auto 1.2 X10*3/uL (1.2-4.9); Mean Corpuscular HGB Conc 34.3 g/dl (31.0-36.0); Mean Corpuscular Hemoglobin 32.6 pg (27.0-33.0); Mean Platelet Volume 9.9 fL (9.4-12.4); Monocytes Absolute Auto 0.7 X10*3/uL (0.1-1.2); Monocytes Percent Auto 6.5 % (2-11); Neutrophils Percent Auto 79.9 % (45-73); Platelet Count 201 X10*3/uL (160-400); Red Blood Count 4.57 X10*6/uL (4.60-5.80)
[2023-09-19 07:12] LABS: Anion Gap 12 (12-20); Blood Urea Nitrogen 8 mg/dL (9-16); Calcium 8.4 mg/dL (8.4-10.2); Carbon Dioxide 27 mmol/L (22-29); Chloride 105 mmol/L (96-108); Estimated Glomerular Filt Rate > 60; Glucose Fasting 89 mg/dL (60-99); Potassium 3.9 mmol/L (3.3-5.1); Sodium 140 mmol/L (135-145)
--- NOTE | 2023-09-19 08:57 | P.PNGS_ITS ---
Subjective Subjective Date of Service: 09/19/23 <Rachele De Los Santos PA-C - Last Filed: 09/19/23 09:00> 09/20/23 <Renny Cooney MD - Last Filed: 09/20/23 15:39> Interval history: Feels overall well. Tolerating clear liquids without any nausea or vomiting. Got OOB to bathroom and passed large amount of flatus. Pain is tolerable with analgesics. <Rachele De Los Santos PA-C - Last Filed: 09/19/23 09:00> Physical Exam 2 Vital Signs: Vital Signs: Last Vital Signs Temp 98.3 F 09/19/23 06:56 Pulse 64 09/19/23 06:56 Resp 16 09/19/23 06:56 BP 118/66 09/19/23 06:56 Pulse Ox 93 09/19/23 06:56 O2 Del Method Room Air 09/19/23 06:56 O2 Flow Rate 2 09/18/23 11:10 BMI result Body Mass Index 32.7 <Rachele De Los Santos PA-C - Last Filed: 09/19/23 09:00> Const: General: comfortable, no acute distress and alert <Rachele De Los Santos PA-C - Last Filed: 09/19/23 09:00> Orientation/consciousness: patient oriented x3 <KE Bear Last Filed: 09/19/23 09:00> Resp: Effort & Inspection: normal respiratory effort <Rachele De Los Santos PA-C - Last Filed: 09/19/23 09:00> GI: Inspection: No distended and Yes incision (small amt of blood staining on dressing ) <Rachele De Los Santos PA-C - Last Filed: 09/19/23 09:00> Palpation (GI): Soft to palpation, Tenderness to palpation present (GI) (mild incisional), no guarding and not rigid <KE Bear Last Filed: 09/19/23 09:00> Percussion: Yes normal to percussion <KE Bear Last Filed: 09/19/23 09:00> Skin: General skin exam: no rashes or lesions noted and no jaundice < Rachele De Los Santos PA-C - Last Filed: 09/19/23 09:00> Neuro: General: patient oriented x3 and moves all extremities <Rachele De Los Santos PA-C - Last Filed: 09/19/23 09:00> Objective Data Active Medications Al Hydroxide/Mg Hydroxide (Magnesium Hydrox/Alum Hydrox 30 Ml Oral.Susp) 30 ml PO Q4H PRN PRN Reason: Heartburn Bupropion HCl (Bupropion Hcl Xl 150 Mg Tab.Er.24h) 150 mg PO DAILY [facility] Last Admin: 09/18/23 13:02 Dose: 150 mg Documented By: GREYSON Buspirone HCl (Buspirone Hcl 10 Mg Tablet) 30 mg PO BID [facility] Last Admin: 09/18/23 20:50 Dose: 30 mg Documented By: JENNIFER Escitalopram Oxalate (Escitalopram Oxalate 20 Mg Tablet) 20 mg PO DAILY [facility] Last Admin: 09/18/23 13:02 Dose: 20 mg Documented By: GREYSON Heparin Sodium (Porcine) (Heparin Sodium,Porcine 5,000 Unit/Ml Vial) 5,000 unit SUBCUT Q8H [facility] Hydromorphone HCl (Hydromorphone Hcl 0.5 Mg/0.5 Ml Syringe) 0.5 mg IVPUSH Q3H PRN; Protocol PRN Reason: Pain, Severe (Pain Scale 7-10) Last Admin: 09/19/23 06:01 Dose: 0.5 mg Documented By: JENNIFER Lactated Ringer's (Lr) 1,000 mls @ 100 mls/hr IVCONT .Q10H [facility] Last Infusion: 09/19/23 06:20 Dose: 100 mls/hr Documented By: JENNIFER Acetaminophen (Ofirmev) 1,000 mg in 100 mls @ 400 mls/hr IV Q6H [facility] Last Infusion: 09/19/23 06:20 Dose: Infused Documented By: JENNIFER Non-Formulary Medication (Buprenorphine Hcl) 450 mcg BUCCAL Q12H [facility] Ondansetron HCl (Ondansetron Hcl 4 Mg/2 Ml Vial) 4 mg IVPUSH Q6H PRN PRN Reason: Nausea Oxycodone HCl (Oxycodone Hcl Immed Release 5 Mg Tablet) 10 mg PO Q4H PRN PRN Reason: Pain, Moderate(Pain Scale 4-6) Sodium Chloride (0.9 % Sodium Chloride Flush 3 Ml Syringe) 3 ml IVFLUSH QSHIFT [facility] Last Admin: 09/19/23 08:48 Dose: Not Given Documented By: YOLA Non-Admin Reason: IV Running Trazodone HCl (Trazodone Hcl 100 Mg Tablet) 100 mg PO BEDTIME PRN PRN Reason: Sleep <Rachele De Los Santos PA-C - Last Filed: 09/19/23 09:00> Labs CBC & Chem 7: 09/19/23 06:00 09/19/23 06:00 <Rachele De Los Santos PA-C - Last Filed: 09/19/23 09:00> Labs: Laboratory Results - last 24 hr 09/19/23 06:00 MCV 95.0 MCH 32.6 MCHC 34.3 RDW 13.0 Plt Count 201 MPV 9.9 Immature Gran % (Auto) 0.4 Neut % (Auto) 79.9 H Lymph % (Auto) 12.0 L [place] % (Auto) 6.5 Eos % (Auto) 0.8 Baso % (Auto) 0.4 Lymph # (Auto) 1.2 [place] # (Auto) 0.7 Eos # (Auto) 0.1 Baso # (Auto) 0.0 Abs Immat Gran (auto) 0.04 H Absolute Neuts (auto) 8.0 Absolute Nucleated RBC 0.000 Nucleated RBC % (auto) 0.0 Anion Gap 12 Estim Creat Clear Calc 116.0 Estimated GFR > 60 Fasting Glucose 89 Calcium 8.4 D <Rachele De Los Santos PA-C - Last Filed: 09/19/23 09:00> Procedures Date of Service Date of Service: 09/19/23 <Rachele De Los Santos PA-C - Last Filed: 09/19/23 09:00> 09/20/23 <Renny Cooney MD - Last Filed: 09/20/23 15:39> Progress Note: A&P Assessment and plan (1) History of colostomy reversal: Status: Acute <Rachele De Los Santos PA-C - Last Filed: 09/19/23 09:00> Assessment and Plan: POD #1 s/p reversal of transverse loop colostomy. Doing well post op. Tolerating clears with some evidence of GI function. Abd benign with appropriate post op tenderness, dressing intact. Encouraged OOB and to ambulate in schafre. Will return later for possible advancement to solid diet. Patient comfortable with plan. <Rachele De Los Santos PA-C - Last Filed: 09/19/23 09:00> Time Spent With Patient Time: Total time managing care of this patient today ____ minutes. <Rachele De Los Santos PA-C - Last Filed: 09/19/23 09:00> Quality Stroke Does the patient have a stroke diagnosis?: No <Rachele De Los Santos PA-C - Last Filed: 09/19/23 09:00> VTE Prior VTE?: No <Rachele De Los Santos PA-C - Last Filed: 09/19/23 09:00> VTE Risk Level:: Medical - moderate - high <KE Bear Last Filed: 09/19/23 09:00> VTE Device Contraindication: N/A - Device Ordered <KE Bear Last Filed: 09/19/23 09:00> VTE Drug Contraindication: N/A - Med Ordered <KE Bear Last Filed: 09/19/23 09:00>
[2023-09-19] MEDS: busPIRone HCl 10 MG TABLET 30 MG PO ×2 (09:09→19:42)
[2023-09-19] MEDS: Escitalopram Oxalate 20 MG TABLET PO (09:10)
[2023-09-19] MEDS: buPROPion HCl XL 150 MG TAB.ER.24H PO (09:10)
[2023-09-19] MEDS: Heparin Sodium,Porcine 5,000 UNIT/ML VIAL 5000 UNIT SUBCUT ×2 (09:11→17:47)
--- NOTE | 2023-09-19 09:39 | MHC.CM.PN ---
IMM DELIVERED. PATIENT IS FROM HOME W/ S.O. INDEPENDENT W/ ADL'S. USES [facility] FOR BACK PAIN/BALANCE. DENIES ANY SERVICES, THOUGH DID USE [facility] 4 YEARS AGO. PCP ALEJANDRA WATSON MD PATIENT COMPLETED HCP NAMING AGENTS 1) Zion SIMS AND 2) SISTER ERROL VALENZUELA DP: GOAL IS HOME SELF CARE, FAMILY TO TRANSPORT. CM WILL CONTINUE TO FOLLOW FOR DC NEEDS.
--- NOTE | 2023-09-19 09:45 | HO.POSTANES ---
Post Anesthesia Evaluation Post Anesthesia Evaluation Date of Service: 09/19/23 Vital Signs: Vital Signs Temp Pulse Resp BP Pulse Ox O2 Del Method 09/19/23 06:56 98.3 F 64 16 118/66 93 Room Air 09/19/23 03:54 96.9 F 63 17 108/58 L 93 Room Air 09/18/23 23:23 97.2 F 63 16 108/63 92 Room Air Anesthesia: General Endotracheal-GETA Mental Status: Awake Pain Control: Satisfactory Nausea/Vomiting: None Hydration: Adequate Anesthesia-Related Issues: No Anes. Related Issues
[2023-09-19] MEDS: Lactated Ringers 1,000 ML 100 ML IVCONT ×2 (10:43→19:43)
[2023-09-19] MEDS: 0.9 % Sodium Chloride Flush 3 ML SYRINGE IVFLUSH (10:44)
--- NOTE | 2023-09-19 11:03 | PC.NURSE ---
Called pharmacy to check compatibility between IV Acetaminophen and Lactated Ringers, pharmacy states there is not enough data and that it is not recommended for piggyback together.
--- NOTE | 2023-09-19 11:56 | PC.NURSE ---
Attempted to administer Acetaminophen at designated time, before administering the system prompted for medication dosage to be verified due to it being 2000mg over dosage,called pharmacy and spoke with Sweetie who stated that the medication was administered late yesterday at 12:57pm and if it is urgent to override but if not to hold medication until time administered the day prior. Rn Tala aware. Medication not administered at this time.
--- NOTE | 2023-09-19 15:10 | PM.EVENT ---
Event Note Date of Service: 09/20/23 Event Note: Seen on afternoon rounds Says he feels well Has incisional pain, appropriate to postop course Passing flatus Ambulated within the room earlier Looks well Continue pain management Will try on full liquid diet tonight Time Spent With Patient Time: Total time managing care of this patient today ____ minutes.
[2023-09-19 15:26] VITALS: BP 119/65; PULSE 72; RESP 16; TEMP 37; O2SAT 95
[2023-09-19 17:46] VITALS: RESP 18
--- NOTE | 2023-09-19 18:01 | PC.NURSE ---
Pt. requested to have minimal staff interactions stated due to the lack of sleep. Surg. MD aware.
[2023-09-19 19:08] VITALS: BP 125/72; PULSE 73; RESP 18; TEMP 37.1; O2SAT 93
[2023-09-19 23:18] VITALS: BP 133/62; PULSE 78; RESP 18; TEMP 36.3; O2SAT 94
[2023-09-20] MEDS: Heparin Sodium,Porcine 5,000 UNIT/ML VIAL 5000 UNIT SUBCUT ×3 (02:13→17:20)
[2023-09-20 04:00] VITALS: BP 149/81; PULSE 65; RESP 18; TEMP 36.6; O2SAT 95
[2023-09-20] MEDS: HYDROmorphone HCl 0.5 MG/0.5 ML SYRINGE IVPUSH ×2 (04:30→10:12)
[2023-09-20] MEDS: Lactated Ringers 1,000 ML 100 ML IVCONT (06:00)
[2023-09-20] MEDS: Acetaminophen 1,000 MG/100 ML PIGGYBACK 400 MG IV (06:10)
[2023-09-20 07:37] VITALS: BP 132/72; PULSE 69; RESP 18; TEMP 35.8; O2SAT 96
--- NOTE | 2023-09-20 09:05 | P.PNGS_ITS ---
Subjective Subjective Date of Service: 09/20/23 <Rachele De Los Santos PA-C - Last Filed: 09/20/23 09:08> 09/20/23 <Renny Cooney MD - Last Filed: 09/20/23 15:39> Interval history: Tolerating full liquids. Feels hungry for solid food. Passing continuous flatus. Incision is uncomfortable but tolerable with analgesics. OOB and ambulating. <Rachele De Los Santos PA-C - Last Filed: 09/20/23 09:08> Physical Exam 2 Vital Signs: Vital Signs: Last Vital Signs Temp 96.5 F L 09/20/23 07:37 Pulse 69 09/20/23 07:37 Resp 18 09/20/23 07:37 BP 132/72 09/20/23 07:37 Pulse Ox 96 09/20/23 07:37 O2 Del Method Room Air 09/20/23 07:37 O2 Flow Rate 2 09/18/23 11:10 BMI result Body Mass Index 32.7 <Rachele De Los Santos PA-C - Last Filed: 09/20/23 09:08> Const: General: comfortable, no acute distress and alert <Rachele De Los Santos PA-C - Last Filed: 09/20/23 09:08> Orientation/consciousness: patient oriented x3 <Rachele De Los Santos PA-C - Last Filed: 09/20/23 09:08> Resp: Effort & Inspection: normal respiratory effort <Rachele De Los Santos PA-C - Last Filed: 09/20/23 09:08> GI: Inspection: No distended and Yes incision (dressing intact) <Rachele De Los Santos PA-C - Last Filed: 09/20/23 09:08> Palpation (GI): Soft to palpation, Tenderness to palpation present (GI) (mild incisional) and no guarding <KE Bear Last Filed: 09/20/23 09:08> Skin: General skin exam: no rashes or lesions noted <KE Bear Last Filed: 09/20/23 09:08> Neuro: General: patient oriented x3 and moves all extremities <KE Bear Last Filed: 09/20/23 09:08> Objective Data Active Medications Al Hydroxide/Mg Hydroxide (Magnesium Hydrox/Alum Hydrox 30 Ml Oral.Susp) 30 ml PO Q4H PRN PRN Reason: Heartburn Bupropion HCl (Bupropion Hcl Xl 150 Mg Tab.Er.24h) 150 mg PO DAILY [facility] Last Admin: 09/19/23 09:10 Dose: 150 mg Documented By: YOLA Buspirone HCl (Buspirone Hcl 10 Mg Tablet) 30 mg PO BID [facility] Last Admin: 09/19/23 19:42 Dose: 30 mg Documented By: JAS Escitalopram Oxalate (Escitalopram Oxalate 20 Mg Tablet) 20 mg PO DAILY [facility] Last Admin: 09/19/23 09:10 Dose: 20 mg Documented By: YOLA Heparin Sodium (Porcine) (Heparin Sodium,Porcine 5,000 Unit/Ml Vial) 5,000 unit SUBCUT Q8H [facility] Last Admin: 09/20/23 02:13 Dose: 5,000 unit Documented By: JAS Hydromorphone HCl (Hydromorphone Hcl 0.5 Mg/0.5 Ml Syringe) 0.5 mg IVPUSH Q3H PRN; Protocol PRN Reason: Pain, Severe (Pain Scale 7-10) Last Admin: 09/20/23 04:30 Dose: 0.5 mg Documented By: JAS Acetaminophen (Ofirmev) 1,000 mg in 100 mls @ 400 mls/hr IV Q6H [facility] Last Infusion: 09/20/23 06:30 Dose: Infused Documented By: JAS Non-Formulary Medication (Buprenorphine Hcl) 450 mcg BUCCAL Q12H [facility] Ondansetron HCl (Ondansetron Hcl 4 Mg/2 Ml Vial) 4 mg IVPUSH Q6H PRN PRN Reason: Nausea Oxycodone HCl (Oxycodone Hcl Immed Release 5 Mg Tablet) 10 mg PO Q4H PRN PRN Reason: Pain, Moderate(Pain Scale 4-6) Sodium Chloride (0.9 % Sodium Chloride Flush 3 Ml Syringe) 3 ml IVFLUSH QSHIFT [facility] Last Admin: 09/20/23 07:23 Dose: Not Given Documented By: RADHA Non-Admin Reason: See Note Trazodone HCl (Trazodone Hcl 100 Mg Tablet) 100 mg PO BEDTIME PRN PRN Reason: Sleep <Rachele De Los Santos PA-C - Last Filed: 09/20/23 09:08> Labs CBC & Chem 7: 09/19/23 06:00 09/19/23 06:00 <Rachele De Los Santos PA-C - Last Filed: 09/20/23 09:08> Procedures Date of Service Date of Service: 09/20/23 <Rachele De Los Santos PA-C - Last Filed: 09/20/23 09:08> 09/20/23 <Renny Cooney MD - Last Filed: 09/20/23 15:39> Progress Note: A&P Assessment and plan (1) History of colostomy reversal: Status: Acute <Rachele De Los Santos PA-C - Last Filed: 09/20/23 09:08> Assessment and Plan: Continues to pass flatus Feels well Continue to ambulate Dressings changed Incision probed with a Q-tip - no pus Okay to try regular food Seen and examined independently <Renny Cooney MD - Last Filed: 09/20/23 15:39> Assessment and Plan: POD #2 s/p reversal of transverse loop colostomy. Doing well. Tolerating fulls and now with continuous flatus. Abd benign with appropriate post op tenderness, dressing intact and changed this morning br Dr. Cooney Advance to solid diet. Encouraged PO analgesics in preparation for discharge. Likely home tomorrow if tolerating solid diet, pain well controlled. Will add colace. < Rachele De Los Santos PA-C - Last Filed: 09/20/23 09:08> Time Spent With Patient Time: Total time managing care of this patient today ____ minutes. <Rachele De Los Santos PA-C - Last Filed: 09/20/23 09:08> Quality Stroke Does the patient have a stroke diagnosis?: No <KE Bear Last Filed: 09/20/23 09:08> VTE Prior VTE?: No <KE Bear Last Filed: 09/20/23 09:08> VTE Risk Level:: Medical - moderate - high <KE Bear Last Filed: 09/20/23 09:08> VTE Device Contraindication: N/A - Device Ordered <KE Bear Last Filed: 09/20/23 09:08> VTE Drug Contraindication: N/A - Med Ordered <KE Bear Last Filed: 09/20/23 09:08>
[2023-09-20] MEDS: Escitalopram Oxalate 20 MG TABLET PO (10:13)
[2023-09-20] MEDS: buPROPion HCl XL 150 MG TAB.ER.24H PO (10:13)
[2023-09-20] MEDS: busPIRone HCl 10 MG TABLET 30 MG PO ×2 (10:13→21:28)
[2023-09-20 10:19] VITALS: TEMP 36.3
[2023-09-20 15:19] VITALS: BP 158/75; PULSE 79; RESP 18; TEMP 36; O2SAT 97
--- NOTE | 2023-09-20 15:40 | PM.EVENT ---
Event Note Date of Service: 09/20/23 Event Note: Seen on afternoon rounds Tolerating diet Passing flatus Ambulating more Abdomen soft Clinically looks well Possible discharge home tomorrow Time Spent With Patient Time: Total time managing care of this patient today ____ minutes.
[2023-09-20] MEDS: oxyCODONE HCl Immed Release 5 MG TABLET 10 MG PO ×2 (16:30→21:29)
[2023-09-20] MEDS: Acetaminophen 325 MG TABLET 650 MG PO (16:30)
[2023-09-20 19:22] VITALS: BP 141/73; PULSE 70; RESP 18; TEMP 36.3; O2SAT 95
[2023-09-20] MEDS: Docusate Sodium 100 MG CAPSULE PO (21:29)
[2023-09-20] MEDS: 0.9 % Sodium Chloride Flush 3 ML SYRINGE IVFLUSH (21:30)
[2023-09-21] VITALS: BP 133/71; PULSE 75; RESP 18; TEMP 36.3; O2SAT 94
[2023-09-21 03:08] VITALS: BP 137/76; PULSE 68; RESP 18; TEMP 36.1; O2SAT 95
[2023-09-21] MEDS: Heparin Sodium,Porcine 5,000 UNIT/ML VIAL 5000 UNIT SUBCUT ×2 (03:29→10:18)
[2023-09-21] MEDS: oxyCODONE HCl Immed Release 5 MG TABLET 10 MG PO ×3 (03:30→10:59)
[2023-09-21] MEDS: Acetaminophen 325 MG TABLET 650 MG PO ×2 (03:32→10:58)
[2023-09-21] MEDS: buPROPion HCl XL 150 MG TAB.ER.24H PO (07:23)
[2023-09-21] MEDS: Escitalopram Oxalate 20 MG TABLET PO (07:23)
[2023-09-21] MEDS: Docusate Sodium 100 MG CAPSULE PO (07:23)
[2023-09-21] MEDS: busPIRone HCl 10 MG TABLET 30 MG PO (07:23)
[2023-09-21] MEDS: 0.9 % Sodium Chloride Flush 3 ML SYRINGE IVFLUSH (07:23)
[2023-09-21 07:42] VITALS: BP 122/73; PULSE 74; RESP 18; TEMP 36; O2SAT 97
--- NOTE | 2023-09-21 08:30 | PM.PNGS ---
Subjective Subjective Date of Service: 09/21/23 Interval history: Feels improved this morning with only mild soreness in the incision. Passing lots of flatus, no BM yet. Tolerating po without nausea or vomiting. Physical Exam Vital Signs: Vital Signs: Last Vital Signs Temp 96.8 F 09/21/23 07:42 Pulse 74 09/21/23 07:42 Resp 18 09/21/23 07:42 BP 122/73 09/21/23 07:42 Pulse Ox 97 09/21/23 07:42 O2 Del Method Room Air 09/21/23 07:42 O2 Flow Rate 2 09/18/23 11:10 BMI result Body Mass Index 32.7 Const: General: no acute distress Nutritional Appearance: well nourished Orientation/consciousness: patient oriented x3 Limitations: no limitations Resp: Effort & Inspection: normal respiratory effort, no audible wheezes, no cough and no respiratory distress GI: Other: soft, nondistended; incision with moderate bloody drainage. Dressings changed. No erythema. Neuro: General: patient oriented x3 Extrem: General: No edema Objective Data Active Medications Acetaminophen (Acetaminophen 325 Mg Tablet) 650 mg PO Q6H PRN PRN Reason: Pain, Mild (Pain Scale 1-3) Last Admin: 09/21/23 03:32 Dose: 650 mg Documented By: RICK Al Hydroxide/Mg Hydroxide (Magnesium Hydrox/Alum Hydrox 30 Ml Oral.Susp) 30 ml PO Q4H PRN PRN Reason: Heartburn Bupropion HCl (Bupropion Hcl Xl 150 Mg Tab.Er.24h) 150 mg PO DAILY [facility] Last Admin: 09/21/23 07:23 Dose: 150 mg Documented By: RASHEL Buspirone HCl (Buspirone Hcl 10 Mg Tablet) 30 mg PO BID [facility] Last Admin: 09/21/23 07:23 Dose: 30 mg Documented By: RASHEL Docusate Sodium (Docusate Sodium 100 Mg Capsule) 100 mg PO BID [facility] Last Admin: 09/21/23 07:23 Dose: 100 mg Documented By: RASHEL Escitalopram Oxalate (Escitalopram Oxalate 20 Mg Tablet) 20 mg PO DAILY [facility] Last Admin: 09/21/23 07:23 Dose: 20 mg Documented By: RASHEL Heparin Sodium (Porcine) (Heparin Sodium,Porcine 5,000 Unit/Ml Vial) 5,000 unit SUBCUT Q8H [facility] Last Admin: 09/21/23 03:29 Dose: 5,000 unit Documented By: RICK Hydromorphone HCl (Hydromorphone Hcl 0.5 Mg/0.5 Ml Syringe) 0.5 mg IVPUSH Q3H PRN; Protocol PRN Reason: Pain, Severe (Pain Scale 7-10) Last Admin: 09/20/23 10:12 Dose: 0.5 mg Documented By: RADHA Non-Formulary Medication (Buprenorphine Hcl) 450 mcg BUCCAL Q12H [facility] Ondansetron HCl (Ondansetron Hcl 4 Mg/2 Ml Vial) 4 mg IVPUSH Q6H PRN PRN Reason: Nausea Oxycodone HCl (Oxycodone Hcl Immed Release 5 Mg Tablet) 10 mg PO Q4H PRN PRN Reason: Pain, Moderate(Pain Scale 4-6) Last Admin: 09/21/23 07:23 Dose: 10 mg Documented By: RASHEL Sodium Chloride (0.9 % Sodium Chloride Flush 3 Ml Syringe) 3 [facility] [place] Last Admin: 09/21/23 07:23 Dose: 3 ml Documented By: RASHEL Trazodone HCl (Trazodone Hcl 100 Mg Tablet) 100 mg PO BEDTIME PRN PRN Reason: Sleep Labs 09/19/23 06:00 09/19/23 06:00 Procedures Date of Service Date of Service: 09/21/23 Progress Note: A&P Assessment and plan (1) History of colostomy reversal: Status: Acute Plan S/p colostomy reversal on 09/17. Doing quite well with better pain control with oxycodone and tylenol. Tolerating regular diet. Wounds are clean and intact without erythema. Encouraged OOB, IS. Awaiting BM. Time Spent With Patient Time: Total time managing care of this patient today ____ minutes. Quality Stroke Does the patient have a stroke diagnosis?: No VTE Prior VTE?: No VTE Risk Level:: Medical - moderate - high VTE Device Contraindication: N/A - Device Ordered VTE Drug Contraindication: N/A - Med Ordered
--- NOTE | 2023-09-21 12:16 | PM.EVENT ---
Event Note Date of Service: 09/21/23 Event Note: Patient reports passing a large BM this morning, feels much improved. Tolerated breakfast well. He is requesting discharge to home Will discharge, follow up in office in [address] Cooney Time Spent With Patient Time: Total time managing care of this patient today ____ minutes.
--- NOTE | 2023-09-21 13:12 | MHC.CM.PN ---
PT TO DC HOME TODAY WITH NO SERVICES VIA FAMILY TRANSPORT
--- NOTE | 2023-09-26 13:14 | P.DS_ITS ---
DS: Providers Provider Date of Service: 09/21/23 Date of admission: 09/18/23 08:44 Primary care physician: Pelon Jeff MD Attending physician on admission: Renny Cooney Attending physician on discharge: Jose M Taylor DS: Diagnosis Discharge Diagnosis (1) History of colostomy reversal: Status: Acute DS: Summary Hospital Course Hospital Course: HPI AT ADMISSION: 53-year-old male for follow-up for his transverse loop colostomy. He is planning to have this reversed so I had sent him for a barium enema study last month to check the anastomosis. I also did his flexible sigmoidoscopy earlier this month and this revealed the anastomosis to be patent and intact. He denies any new complaints. He says he feels well overall. He said he was able to quit smoking 2 weeks ago but did gain some weight after th at. He denies problems with this colostomy. He had urgent transverse loop colostomy in August, because of worsening diverticulitis with will abscesses. We could not a sigmoid resection at that time because of the very dense acute inflammatory changes in the sigmoid. I was able to bring him back in February, for hand assisted laparoscopic sigmoid resection and anastomosis, and left the colostomy in place for diversion in view of the difficult procedure. HOSPITAL COURSE: On 09/18/23, reversal of transverse loop colostomy, lysis of adhesions was performed by Dr. Cooney without complication. The patient tolerated the procedure well and was admitted post operatively for observation. He had an uncomplicated recovery course. On POD #1 he was tolerating liquids without nausea or vomiting. He was passing a small amount of flatus. He was ambulated and activity increased. Over the next two days his GI function returned and his diet was advanced to full liquids and then solids. On the day of discharge, he was tolerating a solid diet without nausea or vomiting. His pain was controlled on oral analgesics. He was ambulating without difficulty. He was passing flatus and moving his bowels. His abdomen was benign with clean incision. He felt ready for discharge. He was discharged to home on 09/21/23 in stable condition. Status at Discharge Functional status at discharge: independent ambulation Time Attestation Discharge Coordination Time (in mins): 35 Quality: Safe Use of Opioids Does Pt have an Active Cancer Diagnosis on the Problem List?: No Quality: Stroke Does the patient have a stroke diagnosis?: No Physical Exam Vital Signs: Vital Signs: Last Vital Signs Temp 96.8 F 09/21/23 07:42 Pulse 74 09/21/23 07:42 Resp 18 09/21/23 07:42 BP 122/73 09/21/23 07:42 Pulse Ox 97 09/21/23 07:42 O2 Del Method Room Air 09/21/23 07:42 O2 Flow Rate 2 09/18/23 11:10 BMI result Body Mass Index 32.7 Const: Orientation/consciousness: patient oriented x3 GI: Inspection: No distended and Yes incision (clean, dawson intact ) Palpation (GI): Soft to palpation and Tenderness to palpation present (GI) (mild incisional) Skin: General skin exam: no rashes or lesions noted Neuro: General: patient oriented x3 DS: Data Data Completed and Pending Completed studies during hospitalization [Text1]: 09/18/23 10:08 Surgical [PTH] Routine Colostomy (reversal): Intact mucocutaneous anastomosis with fibrosis, inflammation, and focal reactive/ hyperplastic epithelial changes. Procedures Release Peritoneum, Open Approach (09/18/23) Repair Transverse Colon, Open Approach (09/18/23) Discharge Plan Discharge Anticipated Discharge Date/Time: 09/21/23 12:11 Patient Disposition: Home, Self-Care Discharge Diagnosis: s/p colostomy reversal Referrals: Pelon Jeff MD [Primary Care Provider] - 1 Week Renny Cooney MD [Physician] - 2 Weeks Discharge Medications: New oxycodone 5 mg tablet 5 mg PO Q4H PRN (Reason: pain (scale score 7-10)) Qty: 24 0RF Rx Instructions: Partial Fill upon patient request. Continued hydroxyzine pamoate 50 mg capsule 50 mg PO TID PRN (Reason: for itch) Qty: 90 1RF citalopram 40 mg tablet 40 mg PO QAM furosemide 20 mg tablet 20 mg PO BID cyclobenzaprine 10 mg tablet 10 mg PO TID PRN (Reason: muscle spasm) (DME) miscellaneous medical supply Misc See Rx Instructions .ROUTE .MEDSUPPLY Qty: 1 0RF Rx Instructions: Shower bench/seat. As directed, duration: 999 days (DME) walker Misc See Rx Instructions .ROUTE .MEDSUPPLY Qty: 1 0RF Rx Instructions: Rolling Walker. Daily. Duration:999days. Ht: 5'9 Wt 215. Disp#1 buspirone 30 mg tablet 30 mg PO BID bupropion HCl 150 mg tablet extended release 24 hr 150 mg PO QAM trazodone 100 mg tablet 100 mg PO BEDTIME PRN (Reason: Sleep) buprenorphine HCl 450 mcg film 450 mcg buccal Q12H 30 Days Qty: 60 1RF Rx Instructions: Partial Fill upon patient request. naloxone 4 mg/actuation spray,non-aerosol 4 mg intranasal Q3M PRN (Reason: opioid overdose) 1 Days Qty: 2 0RF Patient Comments: NEVER USED Rx Instructions: spray 1 dose into ONE nostril; alternate nostrils w each dose until help arrives Discharge Orders: Discharge Order (Routine); Ordered 09/21/23 Ordered By: Jose M Taylor Diet: Advance to usual diet Activity on Discharge: No heavy lifting Stand Alone Forms: Patient Portal Discharge page Activity Restrictions/Additional Instructions: If the incision area is tender, you may apply an ice pack for short intervals (No more than 20 minutes on, followed by at least 20 minutes off). Do not apply heat. Do not use creams, lotions, or topical antibiotics. These can cause infection or allergic reaction. Ok to shower. You have dawson closing your incision and these will be removed approximately 10-14 days after surgery. NO HEAVY LIFTING (>10lbs) or strenuous activity. Follow up in office in 2 weeks. ([phone]) Call Your Doctor If: -Your temperature exceeds 101.5? F -You experience excessive pain or swelling -You have an unexpected reaction to medication -You have excessive bleeding -You experience continued vomiting/nausea -Your incision begins to separate -Your incision shows signs of infection such as increased redness, swelling, excessive pain, drainage (light blood or clear fluid is normal) or heat Care Plan Goals: Return to baseline health and resume normal activities following recovery period. Health Concerns: hx of perforated diverticulitis, transverse loop colostomy in place Plan of Treatment: s/p reversal of transverse loop colostomy pain control F/u in office in [address] Cooney Assessment: Doing well post op. Discharge Date/Time: 09/21/23 13:00
== END 2023-09-21 13:00 | disposition home or self-care (01) | DRG 331 ==
LOC: HO.SSSA 08:46 → HO.S3 10:46
PROVIDERS: Nurse Practitioner; Physician Assistant Surgical; Admitting Provider Surgery; PCP Family Medicine; Visit Provider Surgery
PROC: 0DQL0ZZ Repair Transverse Colon, Open Approach (ICD-10-PCS; CPT 49000; principal; 2023-09-18 09:30)
DX: Z43.3 Encounter for attention to colostomy (principal); K66.0 Peritoneal adhesions (postprocedural) (postinfection); Z87.891 Personal history of nicotine dependence; Z79.899 Other long term (current) drug therapy
CPT/HCPCS: 36415; 80048; 80053; 85025; 85027; 88304; J0131; J1170; J1596; J1644; J2250; J2405; J2704; J2795; J3010; J7120

== ENCOUNTER → 2023-09-18 08:44 | Outpatient (BNV) | payer MEDICARE, MEDICAID, SELFPAY | PROVIDERS: Admitting Provider Surgery; PCP Family Medicine; Visit Provider Surgery | DX: Z98.890 Other specified postprocedural states (principal) | CPT/HCPCS: 44620; 99024; 99499 ==

== ENCOUNTER 2023-10-04 10:12 | Outpatient (AMB) | payer MEDICARE, MEDICAID, SELFPAY ==
--- NOTE | 2023-10-04 10:35 | MHC.OFFVIS ---
Intake Intake Visit Reasons: S/P reversal colostomy, poss laparotomy Intake Note: This patient presents for a follow-up assessment status post reversal of transverse loop colostomy. Pt c/o; reports no complaints. 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 He tolerated the procedure well and currently denies significant complaints. He was discharged on postop day 4. He has good oral intake and has good bowel movements. [facility] Medical History Osteoarthritis Anxiety Depression Degeneration, intervertebral disc, cervical Renal cell carcinoma Chronic pain syndrome Spondylosis of lumbar spine Disc degeneration, lumbar Intra-abdominal abscess Diverticulitis Surgical History Hx of surgical procedure (~09/18/23) History of flexible sigmoidoscopy (~07/27/23) History of surgery History of kidney surgery History of surgery Family History Father No problems noted. Mother No problems noted. Brother No problems noted. Brother No problems noted. Sister Substance use disorder Sister No problems noted. Social History Household Members: Significant Other Housing: Apartment Do you presently have visiting nurse or other home services: No Alcohol intake: former Patient Tobacco Use Status: Former Tobacco user Quit Date: 07/20/23 Tobacco use type: Cigarette Cigarette Packs Per Day: 0.5 Cigarettes Per Day: 10 Years Smoked: 30 e-Cigarette/Vaping Use: Never Used Second Hand Smoke Exposure: No Substance Use Type: Marijuana service: No Current occupational status: disabled Current occupational exposures/hazards: No Cognitive needs: No Hearing needs: No Vision needs: Yes Review of Systems Const Denies chills and Denies fever(s) Card Denies chest pain, Denies dyspnea and Denies dyspnea on exertion Resp Denies cough, Denies dyspnea and Denies dyspnea on exertion GI Denies hematochezia and Denies change in bowel habits Denies hematuria and Denies difficulty urinating Musc Denies back pain and Denies limited range of motion Neuro Denies focal weakness and Denies convulsions Psych Denies depression and Denies mood swings Physical Exam Const Other: Looks well, ambulating General: comfortable and no acute distress Resp Effort & Inspection: normal respiratory effort Cardio Rate: regular rate GI Other: Incision well healed, dawson intact, not infected Palpation (GI): Soft to palpation, not firm and nontender Assessment & Plan Assessment & Plan (1) History of colostomy reversal: Code(s): Z98.890 - Other specified postprocedural states Plan: Status post reversal of a loop colostomy last 09/18/2023. He says he is doing very well. He has good oral intake. He has good bowel movements. He denies any significant pain. I removed his skin dawson . I advised him to avoid lifting anything more than 20 lb for at least 2 more weeks He can follow up on a p.r.n. basis. Coding Level of Care Code Global (80329) Diagnoses History of colostomy reversal Z98.890
== END 2023-10-04 11:01 | disposition home or self-care (01) ==
PROVIDERS: PCP Family Medicine; Visit Provider Surgery
DX: Z98.890 Other specified postprocedural states (principal)
CPT/HCPCS: 99024

== ENCOUNTER → 2023-10-04 10:12 | Outpatient (BNVA) | payer MEDICARE, MEDICAID, SELFPAY | PROVIDERS: PCP Family Medicine; Visit Provider Surgery | DX: Z98.890 Other specified postprocedural states (principal) | CPT/HCPCS: 99212 ==

== ENCOUNTER 2023-11-05 11:23 | Outpatient (AMB) | payer MEDICARE, MEDICAID, SELFPAY ==
--- NOTE | 2023-11-05 11:29 | A.OFFVIS_ITS ---
Vital Signs 11/05/23 11:38 Height 5 ft 9 in Weight 215 lb 8 oz BMI 31.8 BP 118/74 Blood Pressure Location Lt brachial Position Sitting Respiration 16 Pulse 96 Pulse Source Pulse Oximeter Pulse Oximetry (%) 98 Oxygen Delivery Method Room Air Intake Visit Reasons: PILL COUNT Intake Note: Patient comes in for pill count. Reports pain 02/01. Allergies No Known Allergies [No Known Allergies*] Allergy (Verified 11/05/23 11:39) HPI Comments Details: aMne is back in my office after recovery from reversal of the colostomy by Dr. Cooney. He was on oxycodone prescribed by Dr. Cooney, he completed prescription of his Belbuca 4 days ago. He also requests me now since the colostomy is reversed to repeat procedure radiofrequency ablation L2-L3 L4 dorsal ramus L5 bilateral. This will be procedure 3 foror him. He also is interested to go back to [place] to have his cervical spine to be operated on. Film count is correct today his supposed to have no pills of films in his possession. He presented with no films in his possession. I will refill his Belbuca as of today. I will see him in 45 days. [facility] Medical History Osteoarthritis Anxiety Depression Degeneration, intervertebral disc, cervical Renal cell carcinoma Chronic pain syndrome Spondylosis of lumbar spine Disc degeneration, lumbar Intra-abdominal abscess Diverticulitis Surgical History Hx of surgical procedure (~09/18/23) History of flexible sigmoidoscopy (~07/27/23) History of surgery History of kidney surgery History of surgery Family History Father No problems noted. Mother No problems noted. Brother No problems noted. Brother No problems noted. Sister Substance use disorder Sister No problems noted. Social History Household Members: Significant Other Housing: Apartment Do you presently have visiting nurse or other home services: No Alcohol intake: former Patient Tobacco Use Status: Former Tobacco user Quit Date: 07/20/23 Tobacco use type: Cigarette Cigarette Packs Per Day: 0.5 Cigarettes Per Day: 10 Years Smoked: 30 e-Cigarette/Vaping Use: Never Used Second Hand Smoke Exposure: No Substance Use Type: Marijuana service: No Current occupational status: disabled Current occupational exposures/hazards: No Cognitive needs: No Hearing needs: No Vision needs: Yes Review of Systems Const All systems reviewed & are unremarkable except as noted in HPI and below Physical Exam Vital Signs: Last Vital Signs Pulse 96 11/05/23 11:38 Resp 16 11/05/23 11:38 BP 118/74 11/05/23 11:38 Pulse Ox 98 11/05/23 11:38 Oxygen Delivery Method Room Air 11/05/23 11:38 BMI result Body Mass Index 31.8 Const Other: Looks well, ambulating General: comfortable and no acute distress Nutritional Appearance: obese Orientation/consciousness: patient oriented x3 Limitations: no limitations HEENT Head: Yes normal to inspection and Yes normocephalic Ears: hearing grossly normal bilaterally Face and sinus: Yes normal facial exam and Yes face symmetric Eyes General: appearance normal, both eyes and all related structures Neck Neck: Yes no lymphadenopathy Resp Effort & Inspection: normal respiratory effort Auscultation: clear to auscultation bilaterally Cardio Jugular venous distension: no JVD Rate: regular rate Rhythm: regular rhythm Peripheral pulses: Peripheral pulses 2+ throughout GI Other: Incision well healed, dawson intact, not infected Palpation (GI): Soft to palpation, not firm and nontender Back/Spine/Pelvis Cervical Spine: cervical muscular tenderness and No Cervical spine tenderness Thoracic/Lumbar Spine: thoraco-lumbar ROM limited, No thoracic spinal tenderness and No lumbar spinal tenderness Neuro General: patient oriented x3 Psych Appearance: grossly normal and well kempt Mental Status: mental status grossly normal Speech and movement: Normal speech and movement present and Clear speech present Affect: normal affect Attitude: cooperative Thought process: Normal thought process present Thought content: Normal thought content present, suicidality (none), no halluci nations and No Depressive thoughts present Insight: Good insight present (Psych) Judgement: Good judgement present (Psych) Assessment & Plan Assessment & Plan (1) Degeneration, intervertebral disc, cervical: Code(s): M50.30 - Other cervical disc degeneration, unspecified cervical region Category: Medical (2) Sacroiliac joint pain: Code(s): M53.3 - Sacrococcygeal disorders, not elsewhere classified Category: Medical (3) Disc degeneration, lumbar: Code(s): M51.36 - Other intervertebral disc degeneration, lumbar region Category: Medical (4) Spondylosis, cervical: Code(s): M47.812 - Spondylosis without myelopathy or radiculopathy, cervical region Category: Medical (5) Osteoarthritis of right hip: Code(s): M16.11 - Unilateral primary osteoarthritis, right hip Category: Medical (6) Chronic pain syndrome: Code(s): G89.4 - Chronic pain syndrome Category: Medical Plan Next appointment for film count and 45 days. I will schedule him for the radiofrequency ablation as we performed before L2-L3 L4 dorsal ramus L5 bilateral. We had already to procedure like this done for him with good results. I will also recommend him to go back to neurosurgeon in [place] to address the pain in the neck. He was scheduled for this procedure in the past however the colostomy and reversal of the colostomy procedures were delaying the surgery on his neck. Medications: Refilled buprenorphine HCl Partial Fill upon patient request. 450 mcg buccal Q12H 30 days 60 ea 1RF pain M16.11 - Unilateral primary osteoarthritis, right hip, M47.812 - Spondylosis without myelopathy or radiculopathy, cervical region, M50.30 - Other cervical disc degeneration, unspecified cervical region, M51.36 - Other intervertebral disc degeneration, lumbar region, M53.3 - Sacrococcygeal disorders, not elsewhere classified Discontinued 2 oxycodone Partial Fill upon patient request. Discontinued Reason: Doctor's Order 5 mg PO Q4H PRN 24 tabs 0RF pain (scale score 7-10) Coding Level of Care Code Est Pt Level 3 (91176) Diagnoses Degeneration, intervertebral disc, cervical M50.30 Sacroiliac joint pain M53.3 Disc degeneration, lumbar M51.36 Spondylosis, cervical M47.812 Osteoarthritis of right hip M16.11 Chronic pain syndrome G89.4
[2023-11-05 11:38] VITALS: BP 118/74; PULSE 96; RESP 16; O2SAT 98; BMI 31.8
== END 2023-11-05 11:49 | disposition home or self-care (01) ==
PROVIDERS: PCP Family Medicine; Visit Provider Anesthesiology
DX: M50.30 Other cervical disc degeneration, unspecified cervical region (principal); M53.3 Sacrococcygeal disorders, not elsewhere classified; M51.36 Other intervertebral disc degeneration, lumbar region; M47.812 Spondylosis without myelopathy or radiculopathy, cervical region; M16.11 Unilateral primary osteoarthritis, right hip; G89.4 Chronic pain syndrome
CPT/HCPCS: 99213

== ENCOUNTER → 2023-11-05 11:23 | Outpatient (BNVA) | payer MEDICARE, MEDICAID, SELFPAY | PROVIDERS: PCP Family Medicine; Visit Provider Anesthesiology | DX: Z51.81 Encounter for therapeutic drug level monitoring (principal); F11.20 Opioid dependence, uncomplicated; M50.30 Other cervical disc degeneration, unspecified cervical region; M53.3 Sacrococcygeal disorders, not elsewhere classified; M51.36 Other intervertebral disc degeneration, lumbar region; M47.812 Spondylosis without myelopathy or radiculopathy, cervical region; M16.11 Unilateral primary osteoarthritis, right hip; G89.4 Chronic pain syndrome | CPT/HCPCS: 99212 ==

== ENCOUNTER 2023-12-24 09:08 | Outpatient (AMB) | payer MEDICARE, MEDICAID, SELFPAY ==
[2023-12-24 09:45] VITALS: BP 114/72; PULSE 78; RESP 16; O2SAT 98; BMI 32.6
--- NOTE | 2023-12-24 09:45 | MHC.OFFVIS ---
Vital Signs 12/24/23 09:45 Height 5 ft 9 in Weight 220 lb 8 oz BMI 32.6 BP 114/72 Blood Pressure Location Lt brachial Position Sitting Respiration 16 Pulse 78 Pulse Source Pulse Oximeter Pulse Oximetry (%) 98 Oxygen Delivery Method Room Air Intake Visit Reasons: Pill Count Intake Note: Patient comes in for pill count. Reports pain 02/01. Allergies No Known Allergies [No Known Allergies*] Allergy (Verified 12/24/23 09:46) HPI Comments Details: Mane is today in my office for the film count and pain medication refill. He complains on severe pain in the projection of the right trapezius muscle. He requests me to perform a point injection. Trigger point injection performed as below. Film count today: His supposed to have 46 films in his possession. He presented with 50 films in his possession. He is currently taking buprenorphine Belbuca 450 micro g b.i.d.. He reports adequate pain control with this medication. He demonstrates responsible attitude for opioid medications. He denies side effects of the opioid medications. He reports opioid medications allow him to be more active perform better activities of daily living be better social interactions. I will schedule this patient for an appointment in 2 month. He has 1 refill of Belbuca in the pharmacy I do not have to prescribe any medication for him today. When he will run out of his refill he will give us a call and I will write him another Belbuca prescription. [facility] Medical History Osteoarthritis Anxiety Depression Degeneration, intervertebral disc, cervical Renal cell carcinoma Chronic pain syndrome Spondylosis of lumbar spine Disc degeneration, lumbar Intra-abdominal abscess Diverticulitis Surgical History Hx of surgical procedure (~09/18/23) History of flexible sigmoidoscopy (~07/27/23) History of surgery History of kidney surgery History of surgery Family History Father No problems noted. Mother No problems noted. Brother No problems noted. Brother No problems noted. Sister Substance use disorder Sister No problems noted. Social History Household Members: Significant Other Housing: Apartment Do you presently have visiting nurse or other home services: No Alcohol intake: former Patient Tobacco Use Status: Former Tobacco user Tobacco use type: Cigarette Cigarette Packs Per Day: 0.5 Cigarettes Per Day: 10 Years Smoked: 30 e-Cigarette/Vaping Use: Never Used Second Hand Smoke Exposure: No Substance Use Type: Marijuana service: No Current occupational status: disabled Current occupational exposures/hazards: No Cognitive needs: No Hearing needs: No Vision needs: Yes Review of Systems Const All systems reviewed & are unremarkable except as noted in HPI and below Physical Exam Vital Signs: Last Vital Signs Pulse 78 12/24/23 09:45 Resp 16 12/24/23 09:45 BP 114/72 12/24/23 09:45 Pulse Ox 98 12/24/23 09:45 Oxygen Delivery Method Room Air 12/24/23 09:45 BMI result Body Mass Index 32.6 Const Other: Looks well, ambulating General: comfortable and no acute distress Nutritional Appearance: obese Orientation/consciousness: patient oriented x3 Limitations: no limitations HEENT Head: Yes normal to inspection and Yes normocephalic Ears: hearing grossly normal bilaterally Face and sinus: Yes normal facial exam and Yes face symmetric Eyes General: appearance normal, both eyes and all related structures Neck Neck: Yes no lymphadenopathy Resp Effort & Inspection: normal respiratory effort Auscultation: clear to auscultation bilaterally Cardio Jugular venous distension: no JVD Rate: regular rate Rhythm: regular rhythm Peripheral pulses: Peripheral pulses 2+ throughout GI Other: Incision well healed, dawson intact, not infected Palpation (GI): Soft to palpation, not firm and nontender Back/Spine/Pelvis Cervical Spine: cervical muscular tenderness and No Cervical spine tenderness Thoracic/Lumbar Spine: thoraco-lumbar ROM limited, No thoracic spinal tenderness and No lumbar spinal tenderness Neuro General: patient oriented x3 Psych Appearance: grossly normal and well kempt Mental Status: mental status grossly normal Speech and movement: Normal speech and movement present and Clear speech present Affect: normal affect Attitude: cooperative Thought process: Normal thought process present Thought content: Normal thought content present, suicidality (none), no hallucinations and No Depressive thoughts present Insight: Good insight present (Psych) Judgement: Good judgement present (Psych) Assessment & Plan Assessment & Plan (1) Degeneration, intervertebral disc, cervical: Code(s): M50.30 - Other cervical disc degeneration, unspecified cervical region Category: Medical (2) Sacroiliac joint pain: Code(s): M53.3 - Sacrococcygeal disorders, not elsewhere classified Category: Medical (3) Disc degeneration, lumbar: Code(s): M51.36 - Other intervertebral disc degeneration, lumbar region Category: Medical (4) Spondylosis, cervical: Code(s): M47.812 - Spondylosis without myelopathy or radiculopathy, cervical region Category: Medical (5) Osteoarthritis of right hip: Code(s): M16.11 - Unilateral primary osteoarthritis, right hip Category: Medical (6) Chronic pain syndrome: Code(s): G89.4 - Chronic pain syndrome Category: Medical (7) Myofascial pain syndrome, cervical: Code(s): M79.18 - Myalgia, other site Category: Medical Plan: Right-sided trapezius muscle trigger point injection. Patient was positioned sitting on the examination table. The patient is skin in the projection of the trapezius muscle at the point where patient expressed most significant tenderness on palpation-that area was prepped with ChloraPrep twice. Sterilely obtained mixture of bupivacaine 0.5% with Kenalog 40 mg total of 8 cc was injected into the trigger point in fan-like fashion. Upon completion of the injection needle was withdrawn sterile Band-Aid was applied. The patient tolerated the procedure well. Plan Next appointment for film count in 2 months. In the past received L2-L3 L4 dorsal ramus L5 bilateral RFA. Now he does not complain on the pain in the back. Complain on pain in neck mostly in the projection of right trapezius muscle. Trigger point injection was performed today see as above. He also went to a neurosurgeon in [place] who was operating on his neck he brought them the MRI disc, however unfortunately those people did not schedule an appointment for him. He called several times to the hospital in [place] an appointment still is not scheduled. Coding Level of Care Code Est Pt Level 3 (82333) Procedure Only Diagnoses Degeneration, intervertebral disc, cervical M50.30 Sacroiliac joint pain M53.3 Disc degeneration, lumbar M51.36 Spondylosis, cervical M47.812 Osteoarthritis of right hip M16.11 Chronic pain syndrome G89.4 Myofascial pain syndrome, cervical M79.18
== END 2023-12-24 09:52 | disposition home or self-care (01) ==
PROVIDERS: PCP Family Medicine; Visit Provider Anesthesiology
DX: M50.30 Other cervical disc degeneration, unspecified cervical region (principal); M53.3 Sacrococcygeal disorders, not elsewhere classified; M51.36 Other intervertebral disc degeneration, lumbar region; M47.812 Spondylosis without myelopathy or radiculopathy, cervical region; M16.11 Unilateral primary osteoarthritis, right hip; G89.4 Chronic pain syndrome; M79.18 Myalgia, other site
CPT/HCPCS: 20552; 99213

== ENCOUNTER → 2023-12-24 09:08 | Outpatient (BNVA) | payer MEDICARE, MEDICAID, SELFPAY | PROVIDERS: PCP Family Medicine; Visit Provider Anesthesiology | DX: M50.30 Other cervical disc degeneration, unspecified cervical region (principal); M53.3 Sacrococcygeal disorders, not elsewhere classified; M51.36 Other intervertebral disc degeneration, lumbar region; M47.812 Spondylosis without myelopathy or radiculopathy, cervical region; M16.11 Unilateral primary osteoarthritis, right hip; G89.4 Chronic pain syndrome; M79.18 Myalgia, other site; Z51.81 Encounter for therapeutic drug level monitoring; Z79.891 Long term (current) use of opiate analgesic | CPT/HCPCS: 20552; 99212; J0665; J3301 ==

== ENCOUNTER 2024-02-18 09:17 | Outpatient (AMB) | payer MEDICARE, MEDICAID, SELFPAY ==
--- NOTE | 2024-02-18 09:35 | MHC.OFFVIS ---
Vital Signs 02/18/24 09:47 Height 5 ft 9 in Weight 236 lb 6 oz BMI 34.9 BP 129/86 Blood Pressure Location Lt brachial Position Sitting Pulse 88 Pulse Source Pulse Oximeter Pulse Oximetry (%) 97 Oxygen Delivery Method Room Air Intake Visit Reasons: Pill Count Intake Note: Mane comes in today for a film count to belbuca, patient should have 0 films and presents with 0 films which he last took about a week ago. 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 Patient is supposed to have #0 films, in his possession has #0 films. This demonstrates a responsible attitude in regards to the medication regimen. Patient reports mild analgesia with Belbuca 450 mcg film BID. He rates his pain 9/10 which he attributes to worsening neck pain with right sided radicular symptoms. Patient reports current dose of Belbuca does not provide him adequate analgesia. He is concerned for his cervical pain getting progressively worse. He reports he has numbness and tingling in his right fingers. Right upper extremity weakness with hand grasps. Cervical range of motions are limited and restrictred with right lateral rotation, bending and extension. Pain extends from his neck in to his shoulder and down to his right lower arm. Previous cervical MRI in 2020 was noted for multilevel degenerative changes and significant for a right lateral disc protrusion at C5-C6 that is in part disc osteophyte results in severe right foraminal stenosis with compression of the exiting right C6 nerve root. Patient denies any fever, chills, chest pain, dizziness, shortness of breaths, bladder or bowel incontinence or saddle anesthesia. [facility] Medical History Osteoarthritis Anxiety Depression Degeneration, intervertebral disc, cervical Renal cell carcinoma Chronic pain syndrome Spondylosis of lumbar spine Disc degeneration, lumbar Intra-abdominal abscess Diverticulitis Surgical History Hx of surgical procedure (~09/18/23) History of flexible sigmoidoscopy (~07/27/23) History of surgery History of kidney surgery History of surgery Family History Father No problems noted. Mother No problems noted. Brother No problems noted. Brother No problems noted. Sister Substance use disorder Sister No problems noted. Social History Household Members: Significant Other Housing: Apartment Do you presently have visiting nurse or other home services: No Alcohol intake: former Patient Tobacco Use Status: Former Tobacco user Tobacco use type: Cigarette Cigarette Packs Per Day: 0.5 Cigarettes Per Day: 10 Years Smoked: 30 e-Cigarette/Vaping Use: Never Used Second Hand Smoke Exposure: No Substance Use Type: Marijuana service: No Current occupational status: disabled Current occupational exposures/hazards: No Cognitive needs: No Hearing needs: No Vision needs: Yes Review of Systems Const All systems reviewed & are unremarkable except as noted in HPI and below Physical Exam Vital Signs: Last Vital Signs Pulse 88 02/18/24 09:47 BP 129/86 02/18/24 09:47 Pulse Ox 97 02/18/24 09:47 Oxygen Delivery Method Room Air 02/18/24 09:47 BMI result Body Mass Index 34.9 Const General: cooperative, alert, awake and in distress (due to pain) moderate Nutritional Appearance: obese Orientation/consciousness: patient oriented x3 HEENT Head: Yes normal to inspection and Yes normocephalic Ears: hearing grossly normal bilaterally Face and sinus: Yes normal facial exam and Yes face symmetric Eyes General: appearance normal, both eyes and all related structures Neck Other: Patient with decreased cervical ROM in all planes/especially with right lateral rotation. Reports increased pain with cervical extension and flexion. Spurling compression test equivocal. Pain is unchanged by Spurling maneuver with retraction. Elvey's tension test positive on the right, with radiation of pain from neck to right hand and fingers. Lhermitte's test was negative. DTR intact, +1 on the right and +2 on the left. Patient demonstrated 5/5 left and 4/5 right motor strength of bilateral upper extremities. 2 + radial pulses. Significant tightness throughout right upper trapezius as well as TTP throughout bilateral upper trapezius muscles. No paravertebral tenderness over facet joint on affected side. Neck: Yes normal visual inspection, Yes no lymphadenopathy, Yes supple, No anterior neck swelling, Yes no JVD and No prominent dorsocervical fat pad Resp Effort & Inspection: normal respiratory effort, able to speak in complete sentences, no audible wheezes, no cough and symmetric chest movement Cardio Jugular venous distension: no JVD Peripheral pulses: Peripheral pulses 2+ throughout Back/Spine/Pelvis Cervical Spine: cervical muscular tenderness and No Cervical spine tenderness Thoracic/Lumbar Spine: thoraco-lumbar ROM limited, No thoracic spinal tenderness and No lumbar spinal tenderness Neuro General: patient oriented x3 Psych Appearance: grossly normal and well kempt Mental Status: mental status grossly normal Speech and movement: Normal speech and movement present and Clear speech present Affect: normal affect Attitude: cooperative Thought process: Normal thought process present Thought content: Normal thought content present, suicidality (none), no hallucinations and No Depressive thoughts present Insight: Good insight present (Psych) Judgement: Good judgement present (Psych) Results Reviewed Results Reviewed: MRI cervical spine Oct, 2020: Cervical alignment is normal. The vertebral body heights are maintained. The disc volumes are preserved. There is no bone marrow edema. There are no acute fractures. Craniocervical junction is unremarkable. Cervical arterial flow voids are maintained. No significant extraspinal soft tissue findings. Accounting for artifact there is no cord signal abnormality. Franko-cisterna magna. C2-C3: Posterior disc contour is normal. Uncovertebral joint spurring and facet arthropathy result in mild left-sided foraminal encroachment. C3-C4: Slight annular disc bulge. Uncovertebral joint hypertrophy and hypertrophic facet arthropathy result in moderate right and mild left foraminal stenosis. C4-C5: Slight annular disc bulge. Uncovertebral joint hypertrophy and hypertrophic facet arthropathy result in moderate left and mild to moderate right foraminal stenosis. C5-C6: Right paracentral disc protrusion mildly indents the ventral thecal sac. A right lateral disc protrusion that is in part disc osteophyte results in severe right foraminal stenosis with compression of the exiting right C6 nerve root. Mild left foraminal encroachment. C6-C7: Shallow right paracentral disc protrusion mildly narrows the central canal. Uncovertebral joint spurring and facet arthropathy result in moderate to severe bilateral foraminal stenosis. C7-T1: Disc contour is normal. No central canal stenosis and no foraminal stenosis. IMPRESSION: - At C5-C6, a right lateral disc protrusion that is in part disc osteophyte results in severe right foraminal stenosis with compression of the exiting right C6 nerve root. Shallow right paracentral disc protrusion mildly narrows the central canal on the right side. ? - At C6-C7, multifactorial degenerative changes result in moderate to severe bilateral foraminal stenosis. ? - Spondylitic changes also result in moderate right C3-C4 as well as moderate left C5 foraminal stenosis. ? Assessment & Plan Assessment & Plan (1) Degeneration, intervertebral disc, cervical: Code(s): M50.30 - Other cervical disc degeneration, unspecified cervical region Category: Medical (2) Numbness and tingling in right hand: Code(s): R20.0 - Anesthesia of skin; R20.2 - Paresthesia of skin Category: Medical (3) Cervical spinal stenosis: Code(s): M48.02 - Spinal stenosis, cervical region Category: Medical (4) Continuous use of opioids: Code(s): F11.90 - Opioid use, unspecified, uncomplicated Category: Medical (5) Degeneration, intervertebral disc, cervical: Code(s): M50.30 - Other cervical disc degeneration, unspecified cervical region Category: Medical (6) Cervical spinal stenosis: Code(s): M48.02 - Spinal stenosis, cervical region Category: Medical (7) Chronic pain syndrome: Code(s): G89.4 - Chronic pain syndrome Category: Medical (8) Degeneration, intervertebral disc, cervical: Code(s): M50.30 - Other cervical disc degeneration, unspecified cervical region Category: Medical (9) Sacroiliac joint pain: Code(s): M53.3 - Sacrococcygeal disorders, not elsewhere classified Category: Medical (10) Disc degeneration, lumbar: Code(s): M51.36 - Other intervertebral disc degeneration, lumbar region Category: Medical (11) Spondylosis, cervical: Code(s): M47.812 - Spondylosis without myelopathy or radiculopathy, cervical region Category: Medical Plan Patient has shown accountability for his medication regimen and the film count was accurate. There is no evidence of misuse, abuse or diversion at this time. Mass[employer] reviewed. 12-lead EKG was obtained for consideration of increasing Belbuca dose for worsening neck pain. He is tolerating Belbuca well without any side effects. Preliminary EKG results reviewed in EMR for normal QT and QTc intervals. Script for Belbuca 600 mcg BID sent today. Patient advised to have regular dental check ups while taking Belbuca and take extra steps to help lessen the risk of serious dental problems. MRI of the cervical spine to assess for neural integrity and compression and follow up on previous MRI findings. Script sent for Medrol dose Arcadio for worsening neck pain with right sided radicular symptoms. All questions were answered and the patient is in agreement with the plan. Follow up in 4 weeks for a film count review or sooner if needed. Orders: Orders ECG 12 lead EKG Today F11.90 - Opioid use, unspecified, uncomplicated, Z91.89 - Other specified personal risk factors, not elsewhere classified MR cervical spine wo con Today M47.22 - Other spondylosis with radiculopathy, cervical region, M48.02 - Spinal stenosis, cervical region, M50.30 - Other cervical disc degeneration, unspecified cervical region, R20.0 - Anesthesia of skin, R20.2 - Paresthesia of skin Medications: New methylprednisolone (Medrol (Arcadio)) PO PER PKG DIR 21 ea 0RF M48.02 - Spinal stenosis, cervical region, M50.30 - Other cervical disc degeneration, unspecified cervical region Changed From buprenorphine HCl Partial Fill upon patient request. 450 mcg buccal Q12H 30 days 60 ea 1RF pain F11.90 - Opioid use, unspecified, uncomplicated, G89.4 - Chronic pain syndrome, M50.30 - Other cervical disc degeneration, unspecified cervical region To buprenorphine HCl 600 mcg buccal Q12H 30 days 60 ea 0RF pain F11.90 - Opioid use, unspecified, uncomplicated, G89.4 - Chronic pain syndrome, M50.30 - Other cervical disc degeneration, unspecified cervical region Coding Level of Care Code Est Pt Level 4 (83969) Diagnoses Degeneration, intervertebral disc, cervical M50.30 Numbness and tingling in right hand R20.0; R20.2 Cervical spinal stenosis M48.02 Continuous use of opioids F11.90 Chronic pain syndrome G89.4 Sacroiliac joint pain M53.3 Disc degeneration, lumbar M51.36 Spondylosis, cervical M47.812
[2024-02-18 09:47] VITALS: BP 129/86; PULSE 88; O2SAT 97; BMI 34.9
== END 2024-02-18 10:13 | disposition home or self-care (01) ==
PROVIDERS: PCP Family Medicine; Visit Provider Nurse Practitioner Family
DX: M50.30 Other cervical disc degeneration, unspecified cervical region (principal); R20.0 Anesthesia of skin; R20.2 Paresthesia of skin; Z79.891 Long term (current) use of opiate analgesic; M48.02 Spinal stenosis, cervical region; G89.4 Chronic pain syndrome; M53.3 Sacrococcygeal disorders, not elsewhere classified; M51.36 Other intervertebral disc degeneration, lumbar region; M47.812 Spondylosis without myelopathy or radiculopathy, cervical region
CPT/HCPCS: 99214

== ENCOUNTER → 2024-02-18 09:17 | Outpatient (REF) | payer MEDICARE, MEDICAID, SELFPAY ==
--- NOTE | 2024-02-18 10:42 | ECG_ITS ---
Test Reason : OTH PER RISK FACTORS Blood Pressure : / mmHG Vent. Rate : 066 BPM Atrial Rate : 066 BPM P-R Int : 158 ms QRS Dur : 092 ms QT Int : 402 ms P-R-T Axes : 067 063 059 degrees QTc Int : 421 ms Normal sinus rhythm Incomplete right bundle branch block Borderline ECG No previous ECGs available Referred By: Jacinda Gan Electronically Signed By:THEA NAGY
== END ==
LOC: HO.CARD 09:17
PROVIDERS: PCP Family Medicine; Visit Provider Nurse Practitioner Family
DX: F11.90 Opioid use, unspecified, uncomplicated (principal); Z91.89 Other specified personal risk factors, not elsewhere classified
CPT/HCPCS: 93005; 99212

== ENCOUNTER 2024-04-09 09:34 | Outpatient (AMB) | payer MEDICARE, MEDICAID, SELFPAY ==
--- NOTE | 2024-04-09 09:40 | A.OFFVIS_ITS ---
Vital Signs 04/09/24 09:47 Height 5 ft 9 in Weight 232 lb 4 oz BMI 34.3 BP 130/88 Blood Pressure Location Lt brachial Position Sitting Respiration 16 Pulse 84 Pulse Source Pulse Oximeter Pulse Oximetry (%) 94 Oxygen Delivery Method Room Air Intake Visit Reasons: Pill Count/ MRI results Intake Note: Patientv comes in for pill count and to discuss MRI results. Reports pain 510. Allergies No Known Allergies [No Known Allergies*] Allergy (Verified 04/09/24 09:47) HPI Comments Details: Mane here today for the regular film count as well as follow-up. He reported today with to films in his possession. His supposed to have 0 films in his possession. He is due now for his refill. He denies side effects of his opioid medications. He adheres to contiguous applications of the opioid medications. He reports that the 600 Belbuca is okay when he takes it in the morning however it is less pleasant and gives him lots of problems when he takes it at night. I recommended him to cut his night film half and use it on night to 300 micro g instead of 600. He went for MRI at [facility] and the results of the MRI dictated as below. There are multiple cervical conditions which are requiring the attention. There are several sites were there is severe foraminal stenosis the full reports see as below. The patient complains on pain in the neck with radiation into bilateral upper extremities as well as weakness and awkwardness of the left upper extremity. He reports shooting pain from the cervical area to the upper shoulder arm forearm and pinky fingers. I offered the patient to perform C6-C7 interlaminar epidural steroid injections to help him with the pain. I also told him that I will send him for the consult to Dr. Novoa. [facility] Medical History Osteoarthritis Anxiety Depression Degeneration, intervertebral disc, cervical Renal cell carcinoma Chronic pain syndrome Spondylosis of lumbar spine Disc degeneration, lumbar Intra-abdominal abscess Diverticulitis Surgical History Hx of surgical procedure (~09/18/23) History of flexible sigmoidoscopy (~07/27/23) History of surgery History of kidney surgery History of surgery Family History Father No problems noted. Mother No problems noted. Brother No problems noted. Brother No problems noted. Sister Substance use disorder Sister No problems noted. Social History Household Members: Significant Other Housing: Apartment Do you presently have visiting nurse or other home services: No Alcohol intake: former Patient Tobacco Use Status: Former Tobacco user Tobacco use type: Cigarette Cigarette Packs Per Day: 0.5 Cigarettes Per Day: 10 Years Smoked: 30 e-Cigarette/Vaping Use: Never Used Second Hand Smoke Exposure: No Substance Use Type: Marijuana service: No Current occupational status: disabled Current occupational exposures/hazards: No Cognitive needs: No Hearing needs: No Vision needs: Yes Review of Systems Const All systems reviewed & are unremarkable except as noted in HPI and below Physical Exam Vital Signs: Last Vital Signs Pulse 84 04/09/24 09:47 Resp 16 04/09/24 09:47 BP 130/88 04/09/24 09:47 Pulse Ox 94 04/09/24 09:47 Oxygen Delivery Method Room Air 04/09/24 09:47 BMI result Body Mass Index 34.3 Const General: cooperative, alert, awake and in distress (due to pain) moderate Nutritional Appearance: obese Orientation/consciousness: patient oriented x3 HEENT Head: Yes normal to inspection and Yes normocephalic Ears: hearing grossly normal bilaterally Face and sinus: Yes normal facial exam and Yes face symmetric Eyes General: appearance normal, both eyes and all related structures Neck Other: Patient with decreased cervical ROM in all planes/especially with right lateral rotation. Reports increased pain with cervical extension and flexion. Spurling compression test equivocal. Pain is unchanged by Spurling maneuver with retraction. Elvey's tension test positive on the right, with radiation of pain from neck to right hand and fingers. Lhermitte's test was negative. DTR intact, +1 on the right and +2 on the left. Patient demonstrated 5/5 left and 4/5 right motor strength of bilateral upper extremities. 2 + radial pulses. Significant tightness throughout right upper trapezius as well as TTP throughout bilateral upper trapezius muscles. No paravertebral tenderness over facet joint on affected side. Neck: Yes normal visual inspection, Yes no lymphadenopathy, Yes supple, No anterior neck swelling, Yes no JVD and No prominent dorsocervical fat pad Resp Effort & Inspection: normal respiratory effort, able to speak in complete sentences, no audible wheezes, no cough and symmetric chest movement Cardio Jugular venous distension: no JVD Peripheral pulses: Peripheral pulses 2+ throughout Back/Spine/Pelvis Cervical Spine: cervical muscular tenderness and No Cervical spine tenderness Thoracic/Lumbar Spine: thoraco-lumbar ROM limited, No thoracic spinal tenderness and No lumbar spinal tenderness Neuro General: patient oriented x3 Psych Appearance: grossly normal and well kempt Mental Status: mental status grossly normal Speech and movement: Normal speech and movement present and Clear speech present Affect: normal affect Attitude: cooperative Thought process: Normal thought process present Thought content: Normal thought content present, suicidality (none), no hallucinations and No Depressive thoughts present Insight: Good insight present (Psych) Judgement: Good judgement present (Psych) Results Reviewed Results Reviewed: MRI cervical spine without contrast ray us 03/05/2024. Findings normal cervical alignment is demonstrated. Vertebral heights are well- maintained. Craniocervical junction is unremarkable. There is mild multilevel disc desiccation. Bone marrow signal is within normal limits. No suspicious osseous lesions is identified. Vertebral in paraspinal soft tissues are within normal limits. Visualized portions of the posterior fossa are unremarkable. Cervical cord demonstrates normal course caliber and signal characteristics. No epidural fluid collection or hematoma is identified. C2-C3 no disc herniation or protrusion. No central canal or neural foraminal stenosis. C3-C4 no disc herniation or protrusion with mild facet or uncovertebral joint arthropathy. Central canal is patent with [id number] bilateral neural foraminal stenosis. Slightly greater on the right. C4-C5: No significant disc herniation or protrusion. Facet and uncovertebral joint arthropathy greater on the left. Central canal and right neural foramina are patent with advanced left neural foraminal stenosis. C5-C6: Broad-based disc bulge with right paracentral and foraminal disc protrusion. There is contact of the right hemicord with mild deformity. There is advanced high-grade right neural foraminal stenosis. There is moderate facet and uncovertebral joint arthropathy with [id number] left neural foraminal stenosis. C6-C7 broad-based disc bulge with small central disc protrusion which contacts the ventral aspect of the cord without significant deformity. There is facet and uncovertebral joint arthropathy. There is moderate to advanced left neural foraminal stenosis. There is mild right and neural foraminal narrowing. C7-T1 there is no significant disc herniation or protrusion. No central canal or neural foraminal stenosis is demonstrated. Assessment & Plan Assessment & Plan (1) Radiculopathy, cervical: Code(s): M54.12 - Radiculopathy, cervical region Category: Medical (2) Weakness of left upper extremity: Code(s): R29.898 - Other symptoms and signs involving the musculoskeletal system Category: Medical Plan He started to reports weakness in the left upper extremity which is indicative of the radiculopathy. He also reports awkwardness on the left upper extremity. He also reports shooting pain down to the right upper extremity. I offered him and he agreed to go for interlaminar C6-C7 epidural steroid injection. I will schedule it soon as possible. Because it these radiculopathic symptoms I will schedule him also for neurosurgical consult with [facility]. I will see him after the procedure. And also I will see him on his regular pill count. His Belbuca was prescribed as below. I recommended him if he feels that the full film of 600 micro g is too strong for him at night to cut it by half and take 300 micro g a night and 600 micro g in the morning. Orders: Referrals Neurosurgery Referral M54.12 - Radiculopathy, cervical region, R29.898 - Other symptoms and signs involving the musculoskeletal system Medications: Refilled buprenorphine HCl 600 mcg buccal Q12H 30 days 60 ea 1RF pain F11.90 - Opioid use, unspecified, uncomplicated, G89.4 - Chronic pain syndrome, M50.30 - Other cervical disc degeneration, unspecified cervical region Patient Instructions: I here by testify that I spent 32 minutes in conversation with this patient as well as planning his care and organizing this note. Coding Level of Care Code Est Pt Level 4 (79369) Diagnoses Radiculopathy, cervical M54.12 Weakness of left upper extremity R29.898
[2024-04-09 09:47] VITALS: BP 130/88; PULSE 84; RESP 16; O2SAT 94; BMI 34.3
== END 2024-04-09 10:12 | disposition home or self-care (01) ==
PROVIDERS: PCP Family Medicine; Visit Provider Anesthesiology
DX: M54.12 Radiculopathy, cervical region (principal); R29.898 Other symptoms and signs involving the musculoskeletal system
CPT/HCPCS: 99214

== ENCOUNTER → 2024-04-09 09:34 | Outpatient (BNVA) | payer MEDICARE, MEDICAID, SELFPAY | PROVIDERS: PCP Family Medicine; Visit Provider Anesthesiology | DX: M54.12 Radiculopathy, cervical region (principal); M50.30 Other cervical disc degeneration, unspecified cervical region; G89.4 Chronic pain syndrome; R29.898 Other symptoms and signs involving the musculoskeletal system; F11.90 Opioid use, unspecified, uncomplicated; Z51.81 Encounter for therapeutic drug level monitoring | CPT/HCPCS: 99212 ==

== ENCOUNTER 2024-06-09 09:38 | Outpatient (AMB) | payer MEDICARE, MEDICAID, SELFPAY ==
--- NOTE | 2024-06-09 09:56 | A.OFFVIS_ITS ---
Vital Signs 06/09/24 09:57 Height 5 ft 9 in Weight 226 lb BMI 33.4 BP 132/84 Blood Pressure Location Rt brachial Position Sitting Pulse 79 Pulse Source Pulse Oximeter Pulse Oximetry (%) 96 Oxygen Delivery Method Room Air Intake Visit Reasons: 2 Months fu/ Pill count Allergies No Known Allergies [No Known Allergies*] Allergy (Verified 06/09/24 09:57) Medication List - Last Reconciled 06/09/24 by Tiffanie Saldivar, CASH PROCESSING SPECIALIST buprenorphine HCl 600 mcg buccal Q12H 30 days bupropion HCl XL 150 mg PO QAM buspirone 30 mg PO BID citalopram 40 mg PO QAM cyclobenzaprine 10 mg PO TID PRN furosemide 20 mg PO BID 30 days hydroxyzine pamoate 50 mg PO TID PRN methylprednisolone (Medrol (Arcadio)) PO PER PKG DIR miscellaneous medical supply Shower bench/seat. As directed, duration: 999 days naloxone 4 mg/actuation 4 mg intranasal Q3M PRN 1 day prazosin 5 mg PO BEDTIME trazodone 100 mg PO BEDTIME PRN walker Rolling Walker. Daily. Duration:999days. Ht: 5'9 Wt 215. Disp#1 HPI Comments Details: Mane here today for the regular film count as well as follow-up. He reported today 14 films in his possession, supposed to have no pills in his possession. He is due now for his refill. He denies side effects of his opioid medications. He adheres to contiguous applications of the opioid medications. He denies complications of the opioid medications, he denies side effects. He is scheduled in June to receive interlaminar C6-C7 epidural steroid injection. Unfortunately he did not hear from Dr. North office about his appointment with neurosurgery. [facility] and the results of the MRI dictated as below. There are multiple cervical conditions which are requiring the attention. There are several sites were there is severe foraminal stenosis the full reports see as below. The patient complains on pain in the neck with radiation into bilateral upper extremities as well as weakness and awkwardness of the left upper extremity. He reports shooting pain from the cervical area to the upper shoulder arm forearm and pinky fingers. I offered the patient to perform C6-C7 interlaminar epidural steroid injections to help him with the pain. I also told him that I will send him for the consult to Dr. North. [facility] Medical History Osteoarthritis Anxiety Depression Degeneration, intervertebral disc, cervical Renal cell carcinoma Chronic pain syndrome Spondylosis of lumbar spine Disc degeneration, lumbar Intra-abdominal abscess Diverticulitis Surgical History Hx of surgical procedure (~09/18/23) History of flexible sigmoidoscopy (~07/27/23) History of surgery History of kidney surgery History of surgery Family History Father No problems noted. Mother No problems noted. Brother No problems noted. Brother No problems noted. Sister Substance use disorder Sister No problems noted. Social History Household Members: Significant Other Housing: Apartment Do you presently have visiting nurse or other home services: No Alcohol intake: former Patient Tobacco Use Status: Former Tobacco user Tobacco use type: Cigarette Cigarette Packs Per Day: 0.5 Cigarettes Per Day: 10 Years Smoked: 30 e-Cigarette/Vaping Use: Never Used Second Hand Smoke Exposure: No Substance Use Type: Marijuana service: No Current occupational status: disabled Current occupational exposures/hazards: No Cognitive needs: No Hearing needs: No Vision needs: Yes Review of Systems Const All systems reviewed & are unremarkable except as noted in HPI and below Physical Exam Vital Signs: Last Vital Signs Pulse 79 06/09/24 09:57 BP 132/84 06/09/24 09:57 Pulse Ox 96 06/09/24 09:57 Oxygen Delivery Method Room Air 06/09/24 09:57 BMI result Body Mass Index 33.4 Const General: cooperative, alert, awake and in distress (due to pain) moderate Nutritional Appearance: obese Orientation/consciousness: patient oriented x3 HEENT Head: Yes normal to inspection and Yes normocephalic Ears: hearing grossly normal bilaterally Face and sinus: Yes normal facial exam and Yes face symmetric Eyes General: appearance normal, both eyes and all related structures Neck Other: Patient with decreased cervical ROM in all planes/especially with right lateral rotation. Reports increased pain with cervical extension and flexion. Spurling compression test equivocal. Pain is unchanged by Spurling maneuver with retraction. Elvey's tension test positive on the right, with radiation of pain from neck to right hand and fingers. Lhermitte's test was negative. DTR intact, +1 on the right and +2 on the left. Patient demonstrated 5/5 left and 4/5 right motor strength of bilateral upper extremities. 2 + radial pulses. Significant tightness throughout right upper trapezius as well as TTP throughout bilateral upper trapezius muscles. No paravertebral tenderness over facet joint on affected side. Neck: Yes normal visual inspection, Yes no lymphadenopathy, Yes supple, No anterior neck swelling, Yes no JVD and No prominent dorsocervical fat pad Resp Effort & Inspection: normal respiratory effort, able to speak in complete sentences, no audible wheezes, no cough and symmetric chest movement Cardio Jugular venous distension: no JVD Peripheral pulses: Peripheral pulses 2+ throughout Back/Spine/Pelvis Cervical Spine: cervical muscular tenderness and No Cervical spine tenderness Thoracic/Lumbar Spine: thoraco-lumbar ROM limited, No thoracic spinal tenderness and No lumbar spinal tenderness Neuro General: patient oriented x3 Psych Appearance: grossly normal and well kempt Mental Status: mental status grossly normal Speech and movement: Normal speech and movement present and Clear speech present Affect: normal affect Attitude: cooperative Thought process: Normal thought process present Thought content: Normal thought content present, suicidality (none), no hallucinations and No Depressive thoughts present Insight: Good insight present (Psych) Judgement: Good judgement present (Psych) Results Reviewed Results Reviewed: MRI cervical spine without contrast ray us 03/05/2024. Findings normal cervical alignment is demonstrated. Vertebral heights are well- maintained. Craniocervical junction is unremarkable. There is mild multilevel disc desiccation. Bone marrow signal is within normal limits. No suspicious osseous lesions is identified. Vertebral in paraspinal soft tissues are within normal limits. Visualized portions of the posterior fossa are unremarkable. Cervical cord demonstrates normal course caliber and signal characteristics. No epidural fluid collection or hematoma is identified. C2-C3 no disc herniation or protrusion. No central canal or neural foraminal stenosis. C3-C4 no disc herniation or protrusion with mild facet or uncovertebral joint arthropathy. Central canal is patent with [id number] bilateral neural foraminal stenosis. Slightly greater on the right. C4-C5: No significant disc herniation or protrusion. Facet and uncovertebral joint arthropathy greater on the left. Central canal and right neural foramina are patent with advanced left neural foraminal stenosis. C5-C6: Broad-based disc bulge with right paracentral and foraminal disc protrusion. There is contact of the right hemicord with mild deformity. There is advanced high-grade right neural foraminal stenosis. There is moderate facet and uncovertebral joint arthropathy with [id number] left neural foraminal stenosis. C6-C7 broad-based disc bulge with small central disc protrusion which contacts the ventral aspect of the cord without significant deformity. There is facet and uncovertebral joint arthropathy. There is moderate to advanced left neural foraminal stenosis. There is mild right and neural foraminal narrowing. C7-T1 there is no significant disc herniation or protrusion. No central canal or neural foraminal stenosis is demonstrated. Assessment & Plan Assessment & Plan (1) Radiculopathy, cervical: Code(s): M54.12 - Radiculopathy, cervical region Category: Medical (2) Weakness of left upper extremity: Code(s): R29.898 - Other symptoms and signs involving the musculoskeletal system Category: Medical Plan He started to reports weakness in the left upper extremity which is indicative of the radiculopathy. He also reports awkwardness on the left upper extremity. He also reports shooting pain down to the right upper extremity . He is scheduled for C6-C7 interlaminar epidural steroid injection for June. He is waiting for an appointment with Dr. North office. The MRI of cervical spine is available as the reports as above and it also images available in our system. Medications: Changed From buprenorphine HCl 600 mcg buccal Q12H 30 days 60 ea 1RF pain F11.90 - Opioid use, unspecified, uncomplicated, G89.4 - Chronic pain syndrome, M50.30 - Other cervical disc degeneration, unspecified cervical region To buprenorphine HCl partial fill only by patient's request. 600 mcg buccal Q12H 30 days 60 ea 1RF pain F11.90 - Opioid use, unspecified, uncomplicated, G89.4 - Chronic pain syndrome, M50.30 - Other cervical disc degeneration, unspecified cervical region Patient Instructions: I here by testify that I spent 32 minutes in conversation with this patient as well as planning his care and organizing this note. Coding Level of Care Code Est Pt Level 4 (38040) Diagnoses Radiculopathy, cervical M54.12 Weakness of left upper extremity R29.895
[2024-06-09 09:57] VITALS: BP 132/84; PULSE 79; O2SAT 96; BMI 33.4
== END 2024-06-09 11:06 | disposition home or self-care (01) ==
PROVIDERS: PCP Family Medicine; Visit Provider Anesthesiology
DX: M54.12 Radiculopathy, cervical region (principal); R29.898 Other symptoms and signs involving the musculoskeletal system
CPT/HCPCS: 99214

== ENCOUNTER → 2024-06-09 09:38 | Outpatient (BNVA) | payer MEDICARE, MEDICAID, SELFPAY | PROVIDERS: PCP Family Medicine; Visit Provider Anesthesiology | DX: M54.12 Radiculopathy, cervical region (principal); R29.898 Other symptoms and signs involving the musculoskeletal system; G89.4 Chronic pain syndrome; M50.30 Other cervical disc degeneration, unspecified cervical region; F11.90 Opioid use, unspecified, uncomplicated; Z51.81 Encounter for therapeutic drug level monitoring | CPT/HCPCS: 99212 ==

== ENCOUNTER 2024-07-08 06:06 | Outpatient (REF) | payer MEDICARE, MEDICAID, SELFPAY | END 2024-07-08 06:07 | disposition home or self-care (01) | LOC: CF 06:06 | PROVIDERS: Visit Provider Anesthesiology | DX: Z13.89 Encounter for screening for other disorder (principal) ==

== ENCOUNTER → 2024-07-18 13:17 | Outpatient (BNVA) | payer MEDICARE, MEDICAID, SELFPAY | PROVIDERS: PCP Family Medicine; Referring Provider Anesthesiology; Visit Provider Physician Assistant | DX: R29.898 Other symptoms and signs involving the musculoskeletal system (principal) | CPT/HCPCS: 99202 ==

== ENCOUNTER 2024-08-06 15:17 | Outpatient (AMB) | payer MEDICARE, MEDICAID, SELFPAY ==
--- NOTE | 2024-08-06 15:23 | HO.SPINEOV ---
Intake Visit Reasons: discuss sx Intake Note: Mr. Silva is here today to Discuss Surgery Refrigeration Service Technician Required: No Allergies No Known Allergies [No Known Allergies*] Allergy (Verified 08/06/24 15:23) Assessment & Plan Assessment & Plan (1) Cervical spondylosis with myelopathy and radiculopathy: Code(s): M47.12 - Other spondylosis with myelopathy, cervical region; M47.22 - Other spondylosis with radiculopathy, cervical region Category: Medical Plan Dear colleague, On August 06, 2024, I saw for preoperative visit Mane Silva, we suffering from a myelo radiculopathy. Specifically, he has severe right cervical radiculopathy and left-sided weakness of arm and leg due to a large C5-6 disc herniation compressing the spinal cord and exiting C6 nerve root. There is also a small spot of myelomalacia of the left side. On exam, he is hyperreflexic with bilateral ankle clonus compatible with spinal cord compression. I advised him to undergo an anterior diskectomy and fusion C5-C6 to address his right cervical radiculopathy and to stabilize his myelopathic symptoms. I discussed the procedure, possible complications and expected outcome. He is tentatively scheduled for 09/02/2024. I spent 20 minutes in his consult to review imaging and to discuss plan of care. Artis North MD, PhD Spine Fellowship Trained Neurosurgeon Director, [facility] Coding Level of Care Code Est Pt Level 3 (42310) Diagnoses Cervical spondylosis with myelopathy and radiculopathy M47.12; M47.22
== END 2024-08-06 15:59 | disposition home or self-care (01) ==
PROVIDERS: PCP Family Medicine; Visit Provider Neurological Surgery
DX: M47.12 Other spondylosis with myelopathy, cervical region (principal); M47.22 Other spondylosis with radiculopathy, cervical region
CPT/HCPCS: 99213

== ENCOUNTER → 2024-08-06 15:17 | Outpatient (BNVA) | payer MEDICARE, MEDICAID, SELFPAY | PROVIDERS: PCP Family Medicine; Visit Provider Neurological Surgery | DX: M47.12 Other spondylosis with myelopathy, cervical region (principal); M47.22 Other spondylosis with radiculopathy, cervical region | CPT/HCPCS: 99212 ==

== ENCOUNTER → 2024-08-21 12:47 | Outpatient (BNV) | payer MEDICARE, MEDICAID, SELFPAY | PROVIDERS: PCP Family Medicine; Visit Provider Internal Medicine Cardiovascular Disease | DX: I45.10 Unspecified right bundle-branch block (principal); M47.12 Other spondylosis with myelopathy, cervical region | CPT/HCPCS: 93010 ==

== ENCOUNTER → 2024-09-02 05:49 | Outpatient (BNV) | payer MEDICARE, MEDICAID, SELFPAY | PROVIDERS: PCP Family Medicine; Visit Provider Physician Assistant | DX: M47.12 Other spondylosis with myelopathy, cervical region (principal); M47.22 Other spondylosis with radiculopathy, cervical region | CPT/HCPCS: 20936; 22551; 22845; 22853; 99499 ==

== ENCOUNTER 2024-09-23 12:53 | Outpatient (AMB) | payer MEDICARE, MEDICAID, SELFPAY ==
--- NOTE | 2024-09-23 12:55 | A.SPINEOV_ITS ---
Intake Visit Reasons: 1st post op Intake Note: Mr. Silva is here today for his 1st post op appointment. Prosthetic Makeup Designer Required: No Allergies No Known Allergies [No Known Allergies*] Allergy (Verified 09/23/24 12:56) Assessment & Plan Assessment & Plan (1) Fusion of spine, cervical region: Code(s): M43.22 - Fusion of spine, cervical region Category: Medical Plan Procedure: C5-6 ACDF aMne comes in today for his 1st postoperative visit. To recap he was initially seen in clinic for bilateral arm pain and weakness. He reports that since his surgery his pain has been resolved. He is no longer taking narcotic pain medication, and is able to engage full strength in his bilateral lower extremities without issue. He has been working with a physical therapist who is a family friend that has been helping to get him more active. He is completing all of his ADLs without significant issue. No new neurological deficits. The patient ambulates well and rises from a seated position without difficulty. His anterior incision site is closed and well healing. I would like to follow up with Mane again in 6 weeks and obtain a set of x- rays. Ilan North MD,PhD [facility] Coding Level of Care Code Global (72629) Diagnoses Fusion of spine, cervical region M43.22
--- OUTSIDE RECORDS SUMMARY | 2024-09-23 15:02 | XMS_ITS | Clinical Summary ---
Author Organization [facility] Address [address] [place] [address] Care Team Providers Care Transplanter Name Role Phone Pelon Jeff MD Primary Care Provider [phone] Social History Tobacco Use Types Packs/Day Years Used Date Smoking Tobacco: Never Assessed Sex and Gender Information Value Date Recorded Sex Assigned at Not on file Gender Identity Not on file Sexual Orientation Not on file Plan of Treatment Health Maintenance Due Date Last Done Comments Hepatitis B Vaccines (1 of 3 - 3-dose series) 1971 Hepatitis C Screening 1971 COVID-19 Vaccine (#1) 1971 Depression Screening 1983 Preventative Health Evaluation 1989 DTap / Tdap / Td (1 - Tdap) 1990 Colon Cancer Screening (Colonoscopy) 2016 Shingrix-Zoster Vaccine (1 of 2) 2021 Influenza Vaccine (#1) 2024 Pneumococcal Vaccine Aged Out No long er eligible based on patient's age to complete this topic RSV Ped < 20 months Aged Out No longe r eligible based on patient's age to complete this topic Care Teams Transplanter Relationship Specialty Start Date End Date Pelon Jeff MD [address] [place] [id number] PCP - General Family Medicine 12/06/20
== END 2024-09-23 13:41 | disposition home or self-care (01) ==
LOC: HO.HNS 12:54
PROVIDERS: PCP Family Medicine; Visit Provider Physician Assistant
DX: M43.22 Fusion of spine, cervical region (principal)
CPT/HCPCS: 99024

== ENCOUNTER → 2024-09-23 12:53 | Outpatient (BNVA) | payer MEDICARE, MEDICAID, SELFPAY | PROVIDERS: PCP Family Medicine; Visit Provider Physician Assistant | DX: M43.22 Fusion of spine, cervical region (principal) | CPT/HCPCS: 99212 ==

== ENCOUNTER 2024-10-08 08:24 | Outpatient (AMB) | payer MEDICARE, MEDICAID, SELFPAY ==
--- NOTE | 2024-10-08 08:26 | A.OFFVIS_ITS ---
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 As directed, duration: 999 days walker Rolling Walker. Daily. Duration:999days. Ht: 5'9 Wt 215. Disp#1 HPI Comments Details: Mane has been sent for evaluation regarding right bundle-branch block on the EKG. Patient himself does not have any cardiac history. No history of any coronary disease or myocardial infarction or cardiomyopathy. He also denies any cardiac symptoms like angina or shortness of breath or palpitations or dizzy spells or syncopal episodes or in fact anything along those lines. He states he walks up to 3 miles a day. Recent back surgery and he has noted dramatic i mprovement. Exercise The patient reports a significantly improved exercise capacity, currently walking almost three miles daily, which exceeds his previous benchmarks. Exercise tolerance appears well-managed, with no reported exacerbation of symptoms. [facility] Medical History (Updated 09/23/24 @ 13:09 by RAHUL Black) Arthritis Osteoarthritis Anxiety Depression Degeneration, intervertebral disc, cervical Renal cell carcinoma Chronic pain syndrome Spondylosis of lumbar spine Disc degeneration, lumbar Intra-abdominal abscess Diverticulitis Surgical History Hx of surgical procedure (~09/18/23) History of flexible sigmoidoscopy (~07/27/23) History of surgery History of kidney surgery History of surgery Family History Father No problems noted. Mother No problems noted. Brother No problems noted. Brother No problems noted. Sister Substance use disorder Sister No problems noted. Social History Household Members: Significant Other Housing: Apartment Are you a primary medicare compliance auditor to a significant other at home: No Do you presently have visiting nurse or other home services: No Alcohol intake: former Patient Tobacco Use Status: Current everyday Tobacco user Tobacco use type: Cigarette Cigarette Packs Per Day: 0.5 Cigarettes Per Day: 7 Years Smoked: 30 e-Cigarette/Vaping Use: Never Used Second Hand Smoke Exposure: No Substance Use Type: Marijuana service: No Current occupational status: disabled Current occupational exposures/hazards: No Cognitive needs: No Hearing needs: No Vision needs: Yes Review of Systems Const Denies chills, Denies daytime sleepiness, Denies fatigue, Denies fever(s), Denies frequent falls, Denies poor appetite, Denies snoring, Denies stops breathing during sleep, Denies weakness, Denies weight gain and Denies weight loss Eyes Denies loss of vision ENT Denies dizziness and Denies hearing loss Card Denies chest pain, Denies claudication, Denies leg edema, Denies lightheadedness, Denies palpitations, Denies dyspnea, Denies dyspnea on exertion and Denies orthopnea Resp Denies cough, Denies excessive phlegm production, Denies dyspnea, Denies dyspnea on exertion, Denies snoring and Denies wheezing GI Denies abdominal pain, Denies hematochezia, Denies change in bowel habits, Denies nausea and Denies vomiting Denies dysuria and Denies urinary frequency Musc Denies arthralgias, Denies muscle weakness, Denies numbness and Denies other (frequent falls) Skin/Breast Denies nail changes and Denies rash Neuro Denies Abnormal speech present, Denies dizziness, Denies frequent falls, Denies loss of vision, Denies memory loss, Denies numbness and Denies weakness Psych Denies depression and Denies memory loss Endo Denies fatigue and Denies palpitations Terrance/Lymph Reports easy bruising and Reports other (anemia) Aller/Immun Denies wheezing Physical Exam Vital Signs: Last Vital Signs Pulse 88 10/08/24 08:27 BP 120/82 10/08/24 08:27 BMI result Body Mass Index 34.5 Const General: comfortable and no acute distress Orientation/consciousness: patient oriented x3 HEENT Other: Unremarkable Head: Yes normal to inspection Neck Neck: Yes normal visual inspection Chest Chest palpation & inspection: normal inspection of the chest Resp Auscultation: clear to auscultation bilaterally Cardio Palpation: normal PMI Heart sounds: S1 normal heart sound present, S2 normal heart sound present, no gallops, no murmurs and no rubs GI Palpation (GI): Soft to palpation Back/Spine/Pelvis Other: unremarkable Skin General skin exam: no rashes or lesions noted Neuro General: patient oriented x3 Speech: No Abnormal speech present Extrem General: Yes normal to inspection Psych Mental Status: mental status grossly normal Assessment & Plan Assessment & Plan (1) Incomplete right bundle branch block: Code(s): I45.10 - Unspecified right bundle-branch block Category: Medical Plan In the recent EKG, underlying rhythm is sinus at 69/Min; incomplete right bundle-branch block pattern; normal VA and corrected QT. prior EKG from 2023 is also similar. In the absence of symptoms or prior cardiac history, no specific implications. We will check an echocardiogram for any structural abnormalities. If this is within normal limits, then reassurance only. Weight loss, and suddenly be of significant help. Discussion Notes We discussed the minor finding on the EKG involving an electrical anomaly, emphasizing its non-significance unless new symptoms arise. I recommended performing an echocardiogram for a thorough assessment of cardiac function. We talked about the importance of weight management as a preventive strategy for cardiac health. The patient understands the importance of monitoring for new symptoms and agrees to the outlined plan, including potential diagnostic procedures. Orders: Orders CA echo transthoracic complete Today I45.10 - Unspecified right bundle-branch block Patient Instructions: - Continue with current exercise regimen, aiming to maintain or increase activity as tolerated. - Follow up for an echocardiogram as discussed to assess heart function. - Continue weight management efforts as part of your lifestyle changes. - Seek medical attention if experiencing any new or worsening symptoms related to heart health. - Monitor renal health as needed in consultation with your healthcare provider. - Return for further evaluation or tests as advised. Coding Level of Care Code New Pt Level 3 (84549) Diagnoses Incomplete right bundle branch block I45.10
[2024-10-08 08:27] VITALS: BP 120/82; PULSE 88; BMI 34.5
--- OUTSIDE RECORDS SUMMARY | 2024-10-08 08:35 | XMS_ITS | Clinical Summary ---
Author Organization [facility] Address [address] [place] [address] Care Team Providers Care Putty Tinter Maker Name Role Phone Pelon Jeff MD Primary Care Provider Social History Tobacco Use Types Packs/Day Years [...] age to complete this topic Care Teams Putty Tinter Maker Relationship Specialty Start Date End Date Pelon Jeff MD [address] [place] [id number] PCP - General Family Medicine 12/06/20
== END 2024-10-08 09:02 | disposition home or self-care (01) ==
PROVIDERS: PCP Family Medicine; Visit Provider Internal Medicine
DX: I45.10 Unspecified right bundle-branch block (principal)
CPT/HCPCS: 99203

== ENCOUNTER → 2024-10-08 08:24 | Outpatient (BNVA) | payer MEDICARE, MEDICAID, SELFPAY | PROVIDERS: PCP Family Medicine; Visit Provider Internal Medicine | DX: I45.10 Unspecified right bundle-branch block (principal) | CPT/HCPCS: 99202 ==

== ENCOUNTER 2024-11-04 10:24 | Outpatient (REF) | payer MEDICARE, MEDICAID, SELFPAY ==
--- OUTSIDE RECORDS SUMMARY | 2024-11-05 12:00 | XMS_ITS | Clinical Summary ---
[facility] Address [address] [place] [address] Care Team Providers Care Collection Team Lead Name Role Phone Pelon Jeff MD Primary Care Provider [phone] Social History Tobacco Use Types Packs/Day Years [...] age to complete this topic Care Teams Collection Team Lead Relationship Specialty Start Date End Date Pelon Jeff MD [address] [place] [id number] PCP - General Family Medicine 12/06/20
== END 2024-11-04 10:25 | disposition home or self-care (01) ==
LOC: HO.HOSX 10:24
PROVIDERS: Visit Provider Physician Assistant
DX: Z13.89 Encounter for screening for other disorder (principal)

== ENCOUNTER 2025-01-01 06:28 | Inpatient (IN) | payer MEDICARE, MEDICAID, SELFPAY ==
--- NOTE | 2025-01-01 | ECG_ITS ---
Test Reason : R/O PROLONGED QT Blood Pressure : */* mmHG Vent. Rate : 85 BPM Atrial Rate : 85 BPM P-R Int : 148 ms QRS Dur : 94 ms QT Int : 362 ms P-R-T Axes : 69 82 72 degrees QTcB Int : 430 ms Normal sinus rhythm Incomplete right bundle branch block Borderline ECG When compared with ECG of 21-Aug-2024 12:47, No significant change was found Referred By: Ashley Whitt Electronically Signed By: Erick Salazar
[2025-01-01 06:35] VITALS: BP 142/89; BP 162/94; PULSE 90; PULSE 95; RESP 18; TEMP 36.6; O2SAT 92; O2SAT 96; BMI 27.3
[2025-01-01 07:07] LABS: MANUAL DIFF FLAG NO
[2025-01-01 07:17] LABS: Hematocrit 49.1 % (42.0-52.0); Hemoglobin 17.8 g/dl (14.0-18.0); Imm Gran Abs Auto 0.04 X10*3/uL (0.00-0.03); Imm Gran Pct Auto 0.5 % (0.0-0.4); Lymphocytes Absolute Auto 2.3 X10*3/uL (1.2-4.9); Mean Corpuscular HGB Conc 36.3 g/dl (31.0-36.0); Mean Corpuscular Hemoglobin 33.2 pg (27.0-33.0); Mean Corpuscular Volume 91.6 fL (80.0-98.0); NRBC Abs Auto 0.000 X10*3/uL (0.0-0.012); NRBC Pct Auto 0.0 /100WBC (0.0-0.2); Platelet Count 247 X10*3/uL (160-400); Red Blood Count 5.36 X10*6/uL (4.60-5.80); White Blood Count 8.0 X10*3/uL (4.8-10.8)
[2025-01-01 07:23] LABS: Acetaminophen LAB < 3 mcg/mL (<30); Alanine Aminotransferase 33 U/L (0-40); Albumin Level 4.2 g/dL (3.5-5.0); Alkaline Phosphatase 77 U/L (39-117); Anion Gap 15 (12-20); Aspartate Amino Transferase 27 U/L (5-37); Blood Urea Nitrogen 8 mg/dL (9-16); Calcium 8.6 mg/dL (8.4-10.2); Carbon Dioxide 22 mmol/L (22-29); Chloride 109 mmol/L (96-108); Creatinine Clr Calc Pharmacy 84.0; Estimated Glomerular Filt Rate > 60; Potassium 4.1 mmol/L (3.3-5.1); Salicylate < 5.0 mg/dL (15-30); Sodium 142 mmol/L (135-145); Total Protein 6.9 g/dL (6.5-8.0)
--- OUTSIDE RECORDS SUMMARY | 2025-01-01 07:23 | XMS_ITS | Clinical Summary ---
Author Organization [facility] Address [address] [place] [address] Care Team Providers Care Senior Technical Writer Name Role Phone Pelon Jeff MD Primary [...] (1 of 2) 2021 Influenza Vaccine (#1) 2025 Pneumococcal Vaccine Aged Out No long er eligible based on patient's age to complete this topic RSV Ped < 20 months Aged Out No longe r eligible based on patient's age to complete this topic Care Teams Senior Technical Writer Relationship Specialty Start Date End Date Pelon Jeff MD [address] [place] [id number] PCP - General Family Medicine 12/06/20
[2025-01-01] MEDS: Nicotine 21 MG PATCH.TD24 TRANSDERMA (07:25)
[2025-01-01 07:28] VITALS: BP 134/80; PULSE 86; RESP 18; TEMP 37.2; O2SAT 96
--- NOTE | 2025-01-01 08:03 | ED_ITS ---
HPI - Psych General Chief Complaint: Psychiatric Symptoms Stated Complaint: si Time Seen by Provider: 01/01/25 08:03 Source: patient, EMS, RN notes reviewed and old records reviewed Mode of arrival: EMS Limitations: no limitations History of Present Illness ED Provider: Jose Eduardo HPI Narrative: Patient is a 54-year-old male with history of cervical spine fusion in August of this year, diverticulitis with colon resection, colostomy which has since been reversed, anxiety and depression, renal cell carcinoma s/p cryablation presenting to the emergency department via EMS after expressing vague SI to neighbor last night. Has been off of his medications for the past 2 months due to his prescriber leaving, was not assigned a new prescriber. States that since having his cervical fusion he has actually been having a lot less pain and has been able to come off of pain medications prescribed by pain management but does express frustration with the amount of surgeries he has had in the past few years. Admits to alcohol use. States has not slept for the past 2 days and has been having auditory hallucinations to kill himself. Denies HI or visual hallucinations. MD complaint: suicidal ideation Related Data Home Medications ?Medication ?Instructions ?Recorded ?Confirmed No Known Home Meds 01/02/25 01/02/25 Allergies Allergy/AdvReac Type Severity Reaction Status Date / Time No Known Allergies (No Known Allergy Verified 01/01/25 06:37 Allergies*) Review of Systems 2 Review of Systems: As per HPI Yes all other systems are reviewed and are negative Constitutional: Constitutional: Reports as per HPI [facility] Past Medical History Medical History (Updated 01/01/25 @ 11:01 by Ashley Whitt NP) Arthritis Osteoarthritis Anxiety Depression Degeneration, intervertebral disc, cervical Renal cell carcinoma Chronic pain syndrome Spondylosis of lumbar spine Disc degeneration, lumbar Intra-abdominal abscess Diverticulitis Surgical History Hx of surgical procedure (~09/18/23) History of flexible sigmoidoscopy (~07/27/23) History of surgery History of kidney surgery History of surgery Family History Family History Father No problems noted. Mother No problems noted. Brother No problems noted. Brother No problems noted. Sister Substance use disorder Sister No problems noted. Social History Social History Household Members: Significant Other Housing: Apartment Are you a primary care navigator to a significant other at home: No Do you presently have visiting nurse or other home services: No Alcohol intake: former Patient Tobacco Use Status: Current someday Tobacco user Tobacco use type: Cigarette Cigarette Packs Per Day: 0.5 Cigarettes Per Day: 7 Years Smoked: 30 e-Cigarette/Vaping Use: Never Used Second Hand Smoke Exposure: No Substance Use Type: Marijuana Advance Directives: Yes Advance Directives on File: Yes Advance Directives Date on File: 09/24/23 Do you have a plan to hurt others: No Plan Nutrition Risks: No Nutritional Risk service: No Current occupational status: disabled Current occupational exposures/hazards: No Cognitive needs: No Hearing needs: No Vision needs: Yes Physical Exam 2 Vital Signs: Vital Signs: Last Vital Signs Temp 97.4 F 01/01/25 22:55 Pulse 58 01/01/25 22:55 Resp 16 01/01/25 22:55 BP 127/84 01/01/25 22:55 Pulse Ox 96 01/01/25 22:55 O2 Del Method Room Air 01/01/25 22:55 BMI result Body Mass Index 27.3 Vital signs have been reviewed and appear to be correct. Blood pressure normal. Heart rate normal. Respiratory rate normal. Temperature normal. Oxygen saturation normal. Const: General: cooperative, healthy appearing and no acute distress O rientation/consciousness: oriented to person, oriented to place, oriented to time and patient oriented x3 Limitations: no limitations HEENT: Head: Yes normocephalic and Yes atraumatic Ears: external ears normal General nose exam: Normal external nose present Face and sinus: Yes face symmetric Mouth: oropharynx normal and moist mucous membranes Throat: Yes uvula midline Eyes: Pupils: Equal, round and reactive pupils present Neck: Neck: Yes normal visual inspection and Yes supple Resp: Effort & Inspection: normal respiratory effort and able to speak in complete sentences Auscultation: clear to auscultation bilaterally Cardio: Rate: regular rate Rhythm: regular rhythm Heart sounds: S1 normal heart sound present and S2 normal heart sound present GI: Palpation (GI): Soft to palpation and nontender Auscultation: n ormoactive bowel sounds : General: Yes no CVA tenderness Back/Spine/Pelvis: Back: no CVA tenderness Skin: General skin exam: elasticity normal and turgor normal Neuro: General: oriented to person, oriented to place, oriented to time, patient oriented x3, moves all extremities, no focal motor deficits and CN's II- XI intact bilaterally Cranial nerves: Yes Equal, round and reactive pupils present Cognition (Neuro): normal cognition Extrem: General: Yes full ROM, Yes no pedal edema and Yes no calf tenderness Psych: Appearance: grossly normal Mental Status: mental status grossly normal Affect: normal affect Attitude: cooperative Thought process: N ormal thought process present Thought content: Suicidality present, no homicidality and Hallucination(s) present auditory Insight: Fair insight present (Psych) Judgement: Fair judgement present (Psych) Course Reevaluation(s) Reevaluation #1: 01/01/2025; 10;00 DR. Law's progress note. VSS, care team input is appreciated patient is section 12 now, bed search is underway, no events reported by nursing overnight, will continue monitoring. Time: 11:07 Reevaluation #2: Time: 08:29 Date: 01/02/25 Provider: Malka Ramírez, DO Patient in physician observation for psychiatric evaluation.? No acute events reported overnight. No current complaints. VS stable.? Patient is in bed search status Will continue to monitor. Reevaluation #3: Time: 13:24 Date: 01/02/25 Provider: Malka Ramírez DO Physician observation ended at 124pm. Patient to be admitted as inpatient to psychiatry. Medications Administered Generic Name Dose Route Start Last Admin Trade Name Freq PRN Reason Stop Dose Admin Naproxen 500 mg 01/01/25 10:53 01/01/25 12:20 Naproxen 500 Mg Tablet PO 500 mg Q12H PRN Administration moderate pain Discontinued Medications Generic Name Dose Route Start Last Admin Trade Name Freq PRN Reason Stop Dose Admin Nicotine 21 mg 01/01/25 07:12 01/01/25 07:25 Nicotine 21 Mg Patch.Td24 TRANSDERMA 01/01/25 07:13 21 mg ONCE ONE Administration Trazodone HCl 100 mg 01/01/25 23:03 01/01/25 23:14 Trazodone Hcl 100 Mg Tablet PO 01/01/25 23:04 100 mg ONCE ONE Administration Medical Decision Making Medical Decision Making [facility] Narrative: Patient is a 54-year-old male with history of cervical spine fusion in August of this year, diverticulitis with colon resection, colostomy which has since been reversed, anxiety and depression, renal cell carcinoma s/p cryablation presenting to the emergency department via EMS after expressing vague SI to neighbor last night. On exam patient is awake, A+Ox3, VS WNL, afebrile, normal neurological exam without focal deficits, physical exam findings as above. Given reported symptoms and physical exam findings, initial differential includes but is not limited to depression, suicidal ideation, auditory hallucinations. Labs unremarkable. Patient medically cleared, seen by CARE team who is recommending inpatient LOC. Differential Diagnosis Differential Diagnoses: The differential diagnosis associated with the presentation includes As per [facility] Admission/Observation Consideration of admission/observation: Escalation of care including admission/observation considered Consult Healthcare Provider Management of the patient was discussed with: Behavioral Health Provider Lab Data [facility] Lab Attestation statement: I reviewed the patient's lab results. As per [facility] 01/01/25 07:02 01/01/25 07:02 Labs: Lab Results 01/01/25 01/01/25 Range/Units 07:02 12:21 WBC 8.0 (4.8-10.8) X10*3/uL RBC 5.36 (4.60-5.80) X10*6/uL Hgb 17.8 (14.0-18.0) g/dl Hct 49.1 (42.0-52.0) % MCV 91.6 (80.0-98.0) fL MCH 33.2 H (27.0-33.0) pg MCHC 36.3 H (31.0-36.0) g/dl RDW 13.4 (11.0-16.0) % Plt Count 247 (160-400) X10*3/uL MPV 9.9 (9.4-12.4) fL Immature Gran % (Auto) 0.5 H (0.0-0.4) % Neut % (Auto) 61.1 (45-73) % Lymph % (Auto) 28.9 (20-40) % Yell % (Auto) 7.0 (2-11) % Eos % (Auto) 2.0 (0-4) % Baso % (Auto) 0.5 (0-2) % Lymph # (Auto) 2.3 (1.2-4.9) X10*3/uL Yell # (Auto) 0.6 (0.1-1.2) X10*3/uL Eos # (Auto) 0.2 (0.0-0.4) X10*3/uL Baso # (Auto) 0.0 (0.0-0.2) X10*3/uL Abs Immat Gran (auto) 0.04 H (0.00-0.03) X10*3/uL Absolute Neuts (auto) 4.9 (2.0-8.3) x10*3/uL Absolute Nucleated RBC 0.000 (0.0-0.012) X10*3/uL Nucleated RBC % (auto) 0.0 (0.0-0.2) /100WBC Sodium 142 (135-145) mmol/L Potassium 4.1 (3.3-5.1) mmol/L Chloride 109 H (96-108) mmol/L Carbon Dioxide 22 (22-29) mmol/L Anion Gap 15 (12-20) BUN 8 L (9-16) mg/dL Creatinine 1.05 (0.5-1.4) mg/dL Estim Creat Clear Calc 84.0 Estimated GFR > 60 Random Glucose 133 H (60-115) mg/dL Calcium 8.6 D (8.4-10.2) mg/dL Total Bilirubin 0.4 (0.0-1.0) mg/dL AST 27 (5-37) U/L ALT 33 (0-40) U/L Alkaline Phosphatase 77 (39-117) U/L Total Protein 6.9 (6.5-8.0) g/dL Albumin 4.2 (3.5-5.0) g/dL Urine Color Yellow Urine Appearance Clear Urine pH 6.0 (5.0-9.0) Ur Specific [place] 1.015 (1.005-1.025) Urine Protein Negative (Neg-Trace) mg/dL Urine Glucose (UA) Negative (Negative) mg/dL Urine Ketones Trace (Negative) mg/dL Urine Blood Negative (Negative) Urine Nitrite Negative (Negative) Ur Leukocyte Esterase Negative (Negative) Salicylates < 5.0 L (15-30) mg/dL Urine Opiates Screen Not Detected (Not Detect) Ur Buprenorphine Scrn Not Detected (Not Detect) ng/mL Ur Oxycodone Screen Not Detected (Not Detect) ng/mL Urine Methadone Screen Not Detected (Not Detect) ng/mL Urine Fentanyl Screen Not Detected (Not Detect) Acetaminophen < 3 (<30) mcg/mL Ur Barbiturates Screen Not Detected (Not Detect) Ur Phencyclidine Scrn Not Detected (Not Detect) Ur Amphetamines Screen Not Detected (Not Detect) U Benzodiazepines Scrn Not Detected (Not Detect) Urine Cocaine Screen Not Detected (Not Detect) U Marijuana (THC) Screen POSITIVE H (Not Detect) Ethyl Alcohol 100 mg/dL External Record Review External record reviewed: Inpatient record, Office record and Outpatient record Discharge Plan Discharge Clinical Impression: Depression, Suicidal ideation Patient Disposition: Admitted As Inpatient Interventions: [place]-Suicide Risk Severity Scale Last Done: 01/02/25 13:22
--- NOTE | 2025-01-01 08:56 | PC.NURSE ---
CARE team at bedside for evaluation
[2025-01-01 12:32] LABS: Appearance Urine Clear; Glucose Urine UA Negative (Negative); PH 6.0 (5.0-9.0); Specific Gravity - Urine 1.015 (1.005-1.025)
[2025-01-01 12:38] LABS: Cannabinoid Screen Urine POSITIVE (Not Detect)
--- NOTE | 2025-01-01 15:28 | PC.NURSE ---
Pt has been off of his meds for 2 months. Pharmacy verified he has not filled any prescriptions and has not had a provider for 2 months
[2025-01-01 17:22] VITALS: BP 139/90; PULSE 81; RESP 16; TEMP 36.5; O2SAT 98
--- NOTE | 2025-01-01 19:32 | PC.NURSE ---
patient appears to remain at rest presetly, made a phone call to peer, patient asked for sleep medication which t/w will ask pod provider for a one time order patient appears in no distress
[2025-01-01 22:55] VITALS: BP 127/84; PULSE 58; RESP 16; TEMP 36.3; O2SAT 96
--- NOTE | 2025-01-01 23:53 | PC.NURSE ---
Took over care from RN Darling at 23:00, Medicated per mar, pt back to bed. no sign of distress.
--- NOTE | 2025-01-02 10:06 | PHA.MEDREC ---
Pharmacy Consult ? Medication Reconciliation Pharmacy has reviewed the medication reconciliation completed by nursing.
[2025-01-02] MEDS: Nicotine 21 MG PATCH.TD24 TRANSDERMA (13:57)
[2025-01-02 14:39] VITALS: BP 130/83; PULSE 104; RESP 18; TEMP 36.5; O2SAT 96
[2025-01-02 17:40] VITALS: BMI 32.4
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
[2025-01-03 07:55] VITALS: BP 121/81; PULSE 113; RESP 18; TEMP 36.4; O2SAT 95
[2025-01-03] MEDS: buPROPion HCl XL 150 MG TAB.ER.24H PO (08:07)
[2025-01-03] MEDS: Nicotine 21 MG PATCH.TD24 TRANSDERMA (08:07)
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
[2025-01-03 10:58] LABS: Hemoglobin A1C 175.4013 umol/L; Total Hemoglobin (HGBA1C) 4462.9134 umol/L
[2025-01-03 11:05] LABS: Alanine Aminotransferase 26 U/L (0-40); Albumin Level 4.1 g/dL (3.5-5.0); Alkaline Phosphatase 80 U/L (39-117); Anion Gap 14 (12-20); Aspartate Amino Transferase 25 U/L (5-37); Blood Urea Nitrogen 19 mg/dL (9-16); Calcium 9.5 mg/dL (8.4-10.2); Carbon Dioxide 25 mmol/L (22-29); Chloride 105 mmol/L (96-108); Cholesterol 209 mg/dL (<200); Creatinine Clr Calc Pharmacy 86.0; Estimated Glomerular Filt Rate > 60; HDL Cholesterol 29 mg/dL (>40); Potassium 4.3 mmol/L (3.3-5.1); Sodium 140 mmol/L (135-145); Total Protein 6.4 g/dL (6.5-8.0); Triglycerides 411 mg/dL (<150)
[2025-01-03 20:00] VITALS: BP 135/88; PULSE 98; RESP 20; TEMP 36.9; O2SAT 95
[2025-01-04 07:50] LABS: Cholesterol 211 mg/dL (<200); HDL Cholesterol 30 mg/dL (>40); Triglycerides 579 mg/dL (<150)
[2025-01-04 08:00] VITALS: BP 131/87; PULSE 113; RESP 18; TEMP 36.4; O2SAT 97
[2025-01-04] MEDS: Nicotine 21 MG PATCH.TD24 TRANSDERMA (08:27)
[2025-01-04] MEDS: buPROPion HCl XL 150 MG TAB.ER.24H PO (08:29)
[2025-01-04 09:42] LABS: Reflex LDLD? Yes
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
[2025-01-04 19:43] VITALS: BP 138/84; PULSE 100; TEMP 36.7; O2SAT 95
--- NOTE | 2025-01-04 20:21 | PM.EVENT ---
Event Note Date of Service: 01/04/25 Event Note: hospitalist consult placed for high cholesterol. lipid panel with elevated triglycerides at 579, cholesterol 211, LDL pending, HDL low at 30. start fenofibrate 160mg daily. A1C godo 5.7, TSH normal, serum albumin normal, consider outpt w/u for nephrotic syndrome, unlikely with normal serum albumin diet modification: Very low-fat diet (<=5% of calories from fat) ? Avoid refined carbs and sugary foods (including alcohol) ? Increase omega-3 intake (fatty fish, flaxseed) encourage weight loss avoid beta blockers and limit antipsychotics f/u outpt with PCP for repeat labs in 4 weeks management discussed with Dr Spaulding Time Spent With Patient Time: Total time managing care of this patient today ____ minutes.
[2025-01-05 07:57] VITALS: BP 120/67; PULSE 99; RESP 16; TEMP 36; O2SAT 96
[2025-01-05] MEDS: buPROPion HCl XL 150 MG TAB.ER.24H PO (08:37)
[2025-01-05] MEDS: Nicotine 21 MG PATCH.TD24 TRANSDERMA (08:40)
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
--- NOTE | 2025-01-05 10:55 | P.EN_ITS ---
Event Note Date of Service: 01/05/25 Event Note: 54-year-old male with a past medical history of cervical spine fusion August of this year, diverticulitis with colon resection, reversal of colostomy, anxiety and depression, history of renal cell carcinoma status post cryoablation, major depressive disorder with psychotic features, PTSD, and suicidal ideation. He is admitted to for further treatment. Patient's A1c 5.7, TSH normal, serum albumin normal. Patient reports a diet heavy with me as he has smokers at home and frequently eats large quantities of meat. Patient reports that he has no known history of heart disease in his family, he is a current everyday smoker, elevated body mass index, sedentary lifestyle, prediabetic. He denies any abdominal pain, chest pain or shortness of breath. The rest of his labs were unremarkable. Started on fenofibrate, we will add atorvastatin, patient will ne ed follow up with labs with his primary care doctor. Discussed at length dietary recommendations including increased fiber, decreased pork and beef consumption, lean meats, ways to increase fiber in his diet. Provided patient with handouts. Time Spent With Patient Time: Total time managing care of this patient today ____ minutes.
[2025-01-05 19:35] VITALS: BP 152/81; PULSE 98; TEMP 36.7; O2SAT 97
[2025-01-06 07:46] VITALS: BP 130/71; PULSE 90; RESP 18; TEMP 36.7; O2SAT 97
[2025-01-06] MEDS: Nicotine 21 MG PATCH.TD24 TRANSDERMA (08:06)
[2025-01-06] MEDS: buPROPion HCl XL 150 MG TAB.ER.24H PO (08:07)
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
[2025-01-06 14:37] VITALS: BP 125/85
[2025-01-06 20:00] VITALS: BP 124/75; PULSE 118; TEMP 36.8; O2SAT 96
[2025-01-07] MEDS: Nicotine 21 MG PATCH.TD24 TRANSDERMA (07:59)
[2025-01-07 08:00] VITALS: BP 120/73; PULSE 84; RESP 18; TEMP 36.3; O2SAT 96
[2025-01-07] MEDS: buPROPion HCl XL 150 MG TAB.ER.24H PO (08:00)
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
[2025-01-07 14:08] VITALS: BP 136/78
[2025-01-08 07:00] VITALS: BMI 33.9
[2025-01-08 08:00] VITALS: BP 119/67; PULSE 88; RESP 16; O2SAT 96
[2025-01-08] MEDS: buPROPion HCl XL 150 MG TAB.ER.24H PO (08:58)
[2025-01-08] MEDS: Nicotine 21 MG PATCH.TD24 TRANSDERMA (09:00)
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
[2025-01-08 14:11] VITALS: BP 130/82
[2025-01-08 20:00] VITALS: BP 148/88; PULSE 78; RESP 18; TEMP 36.8; O2SAT 95
[2025-01-09 08:00] VITALS: BP 119/68; PULSE 75; RESP 16; TEMP 36.9; O2SAT 94
[2025-01-09 08:44] VITALS: BP 119/68
[2025-01-09] MEDS: Nicotine 21 MG PATCH.TD24 TRANSDERMA (08:44)
[2025-01-09] MEDS: buPROPion HCl XL 150 MG TAB.ER.24H PO (08:45)
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
== END 2025-01-09 10:56 | disposition home or self-care (01) | DRG 885 ==
LOC: HO.ED 08:03 → HO.PM5 01-02 12:41
PROVIDERS: Admitting Provider Psychiatry & Neurology Psychiatry; Emergency Provider Emergency Medicine; PCP Family Medicine; Visit Provider Psychiatry & Neurology Psychiatry
DX: F32.3 Major depressive disorder, single episode, severe with psychotic features (principal); R45.851 Suicidal ideations; F10.90 Alcohol use, unspecified, uncomplicated; F17.210 Nicotine dependence, cigarettes, uncomplicated; Z71.6 Tobacco abuse counseling; F40.10 Social phobia, unspecified; Y90.5 Blood alcohol level of 100-119 mg/100 ml; Z85.528 Personal history of other malignant neoplasm of kidney; Z98.1 Arthrodesis status; Z79.899 Other long term (current) drug therapy
CPT/HCPCS: 36415; 80053; 80061; 80143; 80179; 80307; 81003; 83036; 83721; 84443; 85025; 93005; 99285; S9485

== ENCOUNTER → 2025-01-01 15:32 | Outpatient (BNV) | payer MEDICARE, MEDICAID, SELFPAY | PROVIDERS: Admitting Provider Psychiatry & Neurology Psychiatry; Emergency Provider Emergency Medicine; PCP Family Medicine; Visit Provider Internal Medicine Cardiovascular Disease | DX: I45.10 Unspecified right bundle-branch block (principal) | CPT/HCPCS: 93010 ==

== ENCOUNTER → 2025-01-02 12:41 | Outpatient (BNV) | payer MEDICARE, MEDICAID, SELFPAY | PROVIDERS: Admitting Provider Psychiatry & Neurology Psychiatry; Emergency Provider Emergency Medicine; PCP Family Medicine; Visit Provider Psychiatry & Neurology Psychiatry | DX: F32.3 Major depressive disorder, single episode, severe with psychotic features (principal); F43.11 Post-traumatic stress disorder, acute; R45.851 Suicidal ideations; F40.10 Social phobia, unspecified | CPT/HCPCS: 90792; 99232 ==

== ENCOUNTER 2025-02-27 14:15 | Outpatient (RCR) | payer MEDICARE, MEDICAID, SELFPAY ==
[2025-01-30 14:52] VITALS: BP 124/82; PULSE 92; RESP 18; TEMP 36.6; O2SAT 97
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
--- NOTE | 2025-02-05 15:14 | HO.PHP ---
Client was reviewed and opened in teams.
--- NOTE | 2025-02-06 14:22 | HO.PHPPROGNO ---
Subjective Subjective Date of Service: 02/06/25 Reason For Visit: MDD,PTSD Interim History: Life is scary Patient seen per concern of staff. Patient was unable to sleep last night, was dysphoric and highly anxious. Reports insomnia has always been a main issue . Even 4 hours is a good ngiht's sleep for me . He reports having had some SI in the middle of the night because he was unable to sleep at all. Feels tired, thready and wired presently. ANxiety is high. Denies any hopelessness or SI today. He is hoping an adjustment to his medications will help. Reports mood as I get really osuna because I tolerate going without sleep . Energy low. Denies AH, VH, SI, HI. Medication Compliance: Yes Side effects from medications: No Attending Groups: Yes Review of Systems Acute medical concerns: No Mental Status Exam Mental Status Exam Narrative: Alert, oriented, in no acute distress. Calm, cooperative, inhibited, engageable. No psychomotor agitation or neurovegetative retardation. Eye contact avoidant. Mood anxious, depressed, affect constricted, anxious, mood congruent. Speech normal. Thought process linear, coherent. Thought content related to stressors, transient SI yesterday, but denies any current hopelessness or SI today. Denies any aggressive ideation or HI. No paranoia or delusional content elicited. No evidence of psychosis. Insight and judgment - fair but adequate. Assessment & Plan Assessment & Plan (1) MDD (major depressive disorder), recurrent episode, severe: Status: Acute Code(s): F33.2 - Major depressive disorder, recurrent severe without psychotic features (2) PTSD (post-traumatic stress disorder): Status: Acute Code(s): F43.10 - Post-traumatic stress disorder, unspecified (3) Social anxiety disorder: Status: Acute Code(s): F40.10 - Social phobia, unspecified (4) Panic disorder with agoraphobia: Status: Acute Code(s): F40.01 - Agoraphobia with panic disorder (5) Cannabis use disorder, mild, abuse: Status: Acute Code(s): F12.10 - Cannabis abuse, uncomplicated Plan continue PHP continue Wellbutrin XL 150 mg qam cont Buspar 30 mg BID cont Prozac 20 mg qd increase Zyprexa to 15 mg qhs start Zyprexa 2.5-5 mg prn anxiety, sleep increase trazodone 150-200 mg qhs cont clonidine 0.1 mg BID cont hydroxyzine 50 mg q6 hr prn anxiety cont regular medications: atorvastatin 20 mg, fenofibrate 160 mg Routine lab work slip given EKG, routine for baseline QTc for medication considerations as indicated UDS as indicated VS reviewed: afebrile, BP 124/82;?92 bpm Continue to monitor Patient educated on: diagnosis and medication risk/benefits Informed Consent: understands Reason for contiued partial hosp. stay Substantial Risk for: harm to self, inability to function and med/psych decompensation Certification I certify that partial hospital treatment is medically necessary due to the symptoms and problems resulting from the patient's mental illness and the failure to treat the patient at the partial hospital level of care would likely result in the patient requiring inpatient psychiatric care which could not be prevented at a less intensive level of care. Total time managing care of this patient today __30__ minutes. Discharge Plan Discharge Attending provider: Bre Meyer Medications: New trazodone 100 mg tablet 150 - 200 mg PO BEDTIME PRN (Reason: sleep) Qty: 20 0RF olanzapine 5 mg tablet 5 mg PO BID PRN (Reason: agitation, insomnia) Qty: 20 0RF Continued clonidine HCl 0.1 mg Tablet 0.1 mg PO BID@0900,1300 30 Days Qty: 60 0RF Protocol: Hold for SBP< HOLD for SBP < : 90 atorvastatin 20 mg Tablet 20 mg PO BEDTIME 30 Days Qty: 30 0RF olanzapine 10 mg Tablet 10 mg PO BEDTIME 30 Days Qty: 30 0RF hydroxyzine HCl 50 mg Tablet 50 mg PO Q6H PRN (Reason: mild anxiety) 30 Days Qty: 60 0RF buspirone 30 mg tablet 30 mg PO BID 30 Days Qty: 60 0RF fluoxetine 20 mg Capsule 20 mg PO DAILY 30 Days Qty: 30 0RF bupropion HCl 150 mg Tablet Extended Release 24 Hr 150 mg PO DAILY 30 Days Qty: 30 0RF fenofibrate 160 mg Tablet 160 mg PO DAILY 30 Days Qty: 30 0RF No Action trazodone 50 mg Tablet See Rx Instructions .ROUTE .COMPLEX PRN (Reason: insomnia) 30 Days Qty: 45 0RF Rx Instructions: One tab at bedtime as needed for sleep; may take 1 repeat tab for continued insomnia Print Language: Nepali
--- NOTE | 2025-02-16 11:19 | HO.PHP ---
PHP Admin, Katherine, informed the team that Mane will not be in attendance to program due to having digestive issues. No safety concerns were reported and he will be in attendance to program tomorrow.
--- NOTE | 2025-02-18 20:07 | P.PNPSP_ITS ---
Subjective Subjective Date of Service: 02/17/25 Reason For Visit: MDD,PTSD Interim History: Pt reports that he's 'not good'. Trying to re-verify SSDI. Playing phone tag w/ his advocacy grp. Endorses insomnia. States he hasn't slept since Sunday am. Sees light and hears a voice screaming when he closes his eyes (since childhood). Endorses anxiety a/w shaking, social anxiety, 'my head goes 24/7'. Currently taking olanzapine 10 mg qhs- initially helped him get 3-4 hrs of sleep then he reports that he went 6-7 days w/o sleeping at all, sitting in a recliner in the dark. Pt endorses chronic passive SI but denies current plan/intent. Reports that his gf is aware. Prior med trials- prazosin didn't help citalopram didn't help couldn't handle clonazepam Mental Status Exam Mental Status Exam Narrative: Appearance: Casually dressed. Grooming/hygiene wnl. Good eye contact Attitude:Cooperative Speech: Fluent and wnl in regard to volume, tone, prosody Motor activity: Calm. steady gait Mood: anxious, not good' Affect: appropriate, constricted Thought process: goal directed Thought content: as noted above. denies violent ideation. Perception: Denies AH/VH and does not appear to respond to internal stimuli Alert/oriented in all spheres Insight: intact Judgment: intact Assessment & Plan Assessment & Plan (1) Major depressive disorder with psychotic features: Status: Acute Code(s): F32.3 - Major depressive disorder, single episode, severe with psychotic features (2) PTSD (post-traumatic stress disorder): Status: Acute Code(s): F43.10 - Post-traumatic stress disorder, unspecified (3) Social anxiety disorder: Status: Acute Code(s): F40.10 - Social phobia, unspecified (4) Panic disorder with agoraphobia: Status: Acute Code(s): F40.01 - Agoraphobia with panic disorder Plan Pt is agreeable with plan to d/c olanzapine and start risperidone 1 mg qhs + 0.5 mg bid prn for severe anxiety. Reviewed that this is an off-label use for tx of anxiety/hypearousal sx of PTSD. Otherwise continue current tx plan Reason for contiued partial hosp. stay Substantial Risk for: harm to self and med/psych decompensation Certification I certify that partial hospital treatment is medically necessary due to the symptoms and problems resulting from the patient's mental illness and the failure to treat the patient at the partial hospital level of care would likely result in the patient requiring inpatient psychiatric care which could not be prevented at a less intensive level of care. Total time managing care of this patient today ____ minutes. Discharge Plan Discharge Attending provider: Bre Meeyr Medications: New risperidone 1 mg tablet 1 mg PO BEDTIME 14 Days Qty: 14 0RF risperidone 0.5 mg tablet See Rx Instructions .ROUTE .COMPLEX 14 Days Qty: 28 0RF Rx Instructions: Take 1 tab po bid prn for anxiety and/or agitation. Please d/c any rx for olanzapine on file trazodone 100 mg tablet 200 mg PO BEDTIME PRN (Reason: insomnia) Qty: 30 0RF Continued clonidine HCl 0.1 mg Tablet 0.1 mg PO BID@0900,1300 30 Days Qty: 60 0RF Protocol: Hold for SBP< HOLD for SBP < : 90 atorvastatin 20 mg Tablet 20 mg PO BEDTIME 30 Days Qty: 30 0RF hydroxyzine HCl 50 mg Tablet 50 mg PO Q6H PRN (Reason: mild anxiety) 30 Days Qty: 60 0RF buspirone 30 mg tablet 30 mg PO BID 30 Days Qty: 60 0RF fluoxetine 20 mg Capsule 20 mg PO DAILY 30 Days Qty: 30 0RF bupropion HCl 150 mg Tablet Extended Release 24 Hr 150 mg PO DAILY 30 Days Qty: 30 0RF fenofibrate 160 mg Tablet 160 mg PO DAILY 30 Days Qty: 30 0RF Discontinued olanzapine 10 mg Tablet 10 mg PO BEDTIME 30 Days Qty: 30 0RF trazodone 50 mg Tablet See Rx Instructions .ROUTE .COMPLEX PRN (Reason: insomnia) 30 Days Qty: 45 0RF Rx Instructions: One tab at bedtime as needed for sleep; may take 1 repeat tab for continued insomnia Patient Education: Depression (DC), Insomnia (ED), Insomnia (DC), Anxiety (ED) Print Language: Belarusian
--- NOTE | 2025-02-19 16:08 | HO.PHP ---
At roughly 10 am movie writer met with Mane after he was observed in the hallway tearful. Pt stated he left group because he was irritated and frustrated, stated he was opening up and another peer who arrived late, cut him off, disrupted the group and his thoughts. Stated he felt this happens often to him by this individual. Acknowledged he felt more angry and emotional due to lack of sleep and felt excessive anxiety as well. Pt spoke at length about his long history of night terrors and lack of sleep. Expressed feeling hopeless it will ever be resolved. Pt was able to reframe some of his efforts with support and was commended for stepping out of group when triggered by his peer instead of responding angrily in group. Pt was able to calm and explore ideas for sleep and rest. Pt identified white noise as helpful, sleeping on the recliner and positive content on tv as helpful before and/or during bedtime. Mane was tearful at times, able to express himself, receive support from staff and resumed group. No safety concerns noted.
--- NOTE | 2025-02-27 20:14 | P.PNPSP_ITS ---
Subjective Subjective Date of Service: 02/27/25 Reason For Visit: MDD,PTSD Interim History: Patient seen for follow-up, anticipating discharge at the end of program today.? Was switched to risperidone, off olanzapine wasn't working for sleep at increased dose. Denies any problems with risperidone, except modestly effective. Anticipates PCP appointment on 03/05 at [facility] for new provider, after his last provider left without warning. Otherwise no complaints. Reports no other acute issues or concerns. Medication compliant, medications well-tolerated. Denies any adverse effects.? Mood with chronic depression, anxiety but says its manageable. Sleep is his main issue and is agreeable to increasing dose of trazodone to 200 mg qhs PRN.? Denies any hopelessness or SI. Denies thoughts of harming self or others at this time. Denies any aggressive ideation or HI. Denies any paranoia or AH or VH. Sleep, appetite, energy stable. Reports no acute issues or concerns. Medication compliant, medications well- tolerated. Denies any adverse effects.? Mental Status Exam Mental Status Exam Narrative: Alert, oriented, in no acute distress. Calm, cooperative, inhibited, engageable. No psychomotor agitation or neurovegetative retardation. Eye contact avoidant. Mood anxious, less depressed, affect anxious, moments of brightening, mood congruent. Speech normal. Thought process linear, coherent. Thought content related to stressors, denies any current hopelessness or SI today. Denies any aggressive ideation or HI. No paranoia or delusional content elicited. No evidence of psychosis. Insight and judgment - fair but adequate. Assessment & Plan Assessment & Plan (1) MDD (major depressive disorder), recurrent episode, severe: Status: Acute Code(s): F33.2 - Major depressive disorder, recurrent severe without psychotic features (2) PTSD (post-traumatic stress disorder): Status: Acute Code(s): F43.10 - Post-traumatic stress disorder, unspecified (3) Social anxiety disorder: Status: Acute Code(s): F40.10 - Social phobia, unspecified (4) Panic disorder with agoraphobia: Status: Acute Code(s): F40.01 - Agoraphobia with panic disorder (5) Cannabis use disorder, mild, abuse: Status: Acute Code(s): F12.10 - Cannabis abuse, uncomplicated Plan Discharge from [facility] Continue regular medications? Refills sent to pharmacy Will defer further medication management to outpatient provider *Safety plan reviewed *Discharge diagnoses, treatment course, discharge plan have been reviewed with patient (including medication regime, medication management, potential side effects) as well as treatment rationale were also revisited *Discharge paperwork signed and given to patient, copy sent for scanning to chart Patient educated on: diagnosis and medication risk/benefits Informed Consent: understands Reason for contiued partial hosp. stay Substantial Risk for: stable for discharge Certification I certify that partial hospital treatment is medically necessary due to the symptoms and problems resulting from the patient's mental illness and the failure to treat the patient at the partial hospital level of care would likely result in the patient requiring inpatient psychiatric care which could not be prevented at a less intensive level of care. Total time managing care of this patient today _30___ minutes. Discharge Plan Discharge Attending provider: Bre Meyer Medications: New risperidone 1 mg tablet 1 mg PO BEDTIME 14 Days Qty: 14 0RF risperidone 0.5 mg tablet See Rx Instructions .ROUTE .COMPLEX 14 Days Qty: 28 0RF Rx Instructions: Take 1 tab po bid prn for anxiety and/or agitation. Please d/c any rx for olanzapine on file trazodone 100 mg tablet 200 mg PO BEDTIME PRN (Reason: insomnia) Qty: 30 0RF Continued clonidine HCl 0.1 mg Tablet 0.1 mg PO BID@0900,1300 30 Days Qty: 60 0RF Protocol: Hold for SBP< HOLD for SBP < : 90 atorvastatin 20 mg Tablet 20 mg PO BEDTIME 30 Days Qty: 30 0RF hydroxyzine HCl 50 mg Tablet 50 mg PO Q6H PRN (Reason: mild anxiety) 30 Days Qty: 60 0RF buspirone 30 mg tablet 30 mg PO BID 30 Days Qty: 60 0RF fluoxetine 20 mg Capsule 20 mg PO DAILY 30 Days Qty: 30 0RF bupropion HCl 150 mg Tablet Extended Release 24 Hr 150 mg PO DAILY 30 Days Qty: 30 0RF fenofibrate 160 mg Tablet 160 mg PO DAILY 30 Days Qty: 30 0RF Discontinued olanzapine 10 mg Tablet 10 mg PO BEDTIME 30 Days Qty: 30 0RF trazodone 50 mg Tablet See Rx Instructions .ROUTE .COMPLEX PRN (Reason: insomnia) 30 Days Qty: 45 0RF Rx Instructions: One tab at bedtime as needed for sleep; may take 1 repeat tab for continued insomnia Patient Education: Depression (DC), Insomnia (ED), Insomnia (DC), Anxiety (ED) Print Language: Portuguese
== END 2025-02-27 23:59 | disposition home or self-care (01) ==
LOC: HO.PHPA 14:15
PROVIDERS: Visit Provider Psychiatry & Neurology Psychiatry
DX: F33.2 Major depressive disorder, recurrent severe without psychotic features (principal); F43.10 Post-traumatic stress disorder, unspecified; F40.10 Social phobia, unspecified; F40.01 Agoraphobia with panic disorder; F41.9 Anxiety disorder, unspecified; F12.10 Cannabis abuse, uncomplicated; Z79.899 Other long term (current) drug therapy
CPT/HCPCS: 90791; 90853